=== PATIENT | female | born 1975 | race Caucasian/White ===

== ENCOUNTER 2023-02-25 07:53 | Outpatient (RCR) | payer OTHER, SELFPAY | END 2023-03-24 09:00 | disposition home or self-care (01) | LOC: PT 07:53 | PROVIDERS: PCP Family Medicine | DX: S39.012D Strain of muscle, fascia and tendon of lower back, subsequent encounter (principal); S33.8XXD Sprain of other parts of lumbar spine and pelvis, subsequent encounter | CPT/HCPCS: 97010; 97110; 97113; 97140; 97161 ==

== ENCOUNTER 2023-03-01 07:44 | Outpatient (OUT) | payer OTHER, SELFPAY ==
--- NOTE | 2023-03-01 07:48 | MR_ITS ---
[address] [address] Patient Name: OMAR HOANG MRN: [id number] date: 1975 Sex: F Assigned Patient Location: PT Current Patient Location: MRI Accession/Order Number: [id number] Exam Date: 03/01/2023 07:57 Report Date: 03/01/2023 09:22 At the request of: JUAN GRAHAM Procedure: MR lumbar spine wo con EXAMINATION: MR lumbar spine wo con HISTORY: Low Back Pain With Right Sided Radiation COMPARISON: No relevant comparison available. TECHNIQUE: A variety of imaging planes and parameters were utilized for visualization of suspected pathology. FINDINGS: For the purposes of numbering, sagittal T2 image # 8 extends from the T11 vertebral body superiorly to the S2-S3 level inferiorly. PARASPINAL AREA: Normal with no visible mass. BONES: 6 mm anterolisthesis of L5 on S1. Bilateral L5 pars interarticularis fractures. Mild degenerative spondylosis most significant at L5-S1 CORD/CAUDA EQUINA: Normal caliber, contour, and signal intensity. DISC LEVELS: 12-L1: No significant disc/facet abnormality, spinal stenosis, or foraminal stenosis. L1-L2: No significant disc/facet abnormality, spinal stenosis, or foraminal stenosis. L2-L3: Early degenerative disc disease is present without focal protrusion or neural impingement. L3-L4: Early degenerative disc disease is present without focal protrusion or neural impingement. L4-L5: No significant disc/facet abnormality, spinal stenosis, or foraminal stenosis. L5-S1: 6 mm anterolisthesis of L5 on S1. Moderate to severe disc space narrowing and desiccation with endplate sclerosis. Moderate diffuse disc bulge/pseudobulge. No central canal stenosis. Mild right and moderate left foraminal stenosis MR/MR lumbar spine wo con IMPRESSION: 6 mm anterolisthesis of L5 on S1 with degenerative changes with mild right and moderate left foraminal stenosis Electronically authenticated by: ELMA DE LOS SANTOS Date: 03/01/2023 09:22
== END 2023-03-01 07:45 | disposition home or self-care (01) ==
PROVIDERS: PCP Family Medicine; Visit Provider Family Medicine
DX: S33.8XXA Sprain of other parts of lumbar spine and pelvis, initial encounter (principal); S39.012A Strain of muscle, fascia and tendon of lower back, initial encounter; M54.31 Sciatica, right side
CPT/HCPCS: 72148

== ENCOUNTER 2023-03-25 10:42 | Outpatient (RCR) | payer OTHER, SELFPAY | END 2023-03-30 11:33 | disposition home or self-care (01) | LOC: PT 10:42 | PROVIDERS: PCP Family Medicine | DX: S39.012D Strain of muscle, fascia and tendon of lower back, subsequent encounter (principal); S33.8XXD Sprain of other parts of lumbar spine and pelvis, subsequent encounter | CPT/HCPCS: 97010; 97110; 97140 ==

== ENCOUNTER 2023-04-23 15:38 | Outpatient (OUT) | payer OTHER, SELFPAY ==
--- OUTSIDE RECORDS SUMMARY | 2023-04-23 15:44 | XMS_ITS | CCD ---
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 HISTORY: Screening for osteoporosis TECHNOLOGIST PROVIDED HISTORY: Is the patient ?->No Gender: F Age: 47 y/o FINDINGS: LUMBAR SPINE: L1-L4 BMD: 1.095 g/cm2 T-score: -0.7 Z-score: -1.7 LEFT TOTAL HIP: BMD: 1.096 g/cm2 T-score: 0.7 Z-score: 0.2 LEFT FEMORAL NECK: BMD: 1.060 g/cm2 T-score: 0.2 Z-score: 0.1 FRAX: Not Indicated. IMPRESSION: Normal bone mineral density by WHO criteria. RECOMMENDATIONS: 1. All patients should optimize their calcium and vitamin D intake. 2. Consider FDA-approved medical therapies in postmenopausal women and men aged 50 years and older, based on the following: - A hip or vertebral (clinical or morphometric) fracture - T-score less than or equal to -2.5 at the femoral neck or spine after appropriate evaluation to exclude secondary causes - Low bone density (T-score between -1.0 and -2.5 at the femoral neck or spine) and a 10-year probability of a hip fracture greater than or equal to 3% or a 10-year probability of a major osteoporosis-related fracture greater than or equal to 20% based on FRAX calculation. - Clinician judgment and/or patient preferences may indicate treatment for people with 10-year fracture probabilities above or below these levels - Further guidance on treatment can be found at the National Osteoporosis Foundation's website bonesource.org. 3. Patients with diagnosis of osteoporosis or at high risk for fracture should have regular bone mineral density tests. For patients eligible for Medicare, routine testing is allowed once every 2 years. The testing frequency can be increased to one year for patients who have rapidly progressing disease, those who are receiving or discontinuing medical therapy to restore bone mass or have additional risk factors. Template code: [id number] Interpreted by: Geo Patel DO Signed by: Geo Patel DO 05/25/22 Final result Normal [facility] Normal bone mineral density by WHO criteria. RECOMMENDATIONS: 1. All patients should optimize their calcium and vitamin D intake. 2. Consider FDA-approved medical therapies in postmenopausal women and men aged 50 years and older, based on the following: - A hip or vertebral (clinical or morphometric) fracture - T-score less than or equal to -2.5 at the femoral neck or spine after appropriate evaluation to exclude secondary causes - Low bone density (T-score between -1.0 and -2.5 at the femoral neck or spine) and a 10-year probability of a hip fracture greater than or equal to 3% or a 10-year probability of a major osteoporosis-related fracture greater than or equal to 20% based on FRAX calculation. - Clinician judgment and/or patient preferences may indicate treatment for people with 10-year fracture probabilities above or below these levels - Further guidance on treatment can be found at the National Osteoporosis Foundation's website bonesource.org. 3. Patients with diagnosis of osteoporosis or at high risk for fracture should have regular bone mineral density tests. For patients eligible for Medicare, routine testing is allowed once every 2 years. The testing frequency can be increased to one year for patients who have rapidly progressing disease, those who are receiving or discontinuing medical therapy to restore bone mass or have additional risk factors. Template code: [id number] [facility] EXAMINATION: BONE DENSITOMETRY 05/25/2022 1:04 pm TECHNIQUE: A bone density dual x-ray absorptiometry (DXA) scan was performed of the lumbar spine and left hip on a [employer] system. COMPARISON: None. HISTORY: ORDERING SYSTEM PROVIDED HISTORY: Screening for osteoporosis TECHNOLOGIST PROVIDED HISTORY: Is the patient ?->No Gender: F Age: 47 y/o FINDINGS: LUMBAR SPINE: L1-L4 BMD: 1.095 g/cm2 T-score: -0.7 Z-score: -1.7 LEFT TOTAL HIP: BMD: 1.096 g/cm2 T-score: 0.7 Z-score: 0.2 LEFT FEMORAL NECK: BMD: 1.060 g/cm2 T-score: 0.2 Z-score: 0.1 FRAX: Not Indicated. [facility] Geo Patel DO - 05/25/2022 EXAMINATION: BONE DENSITOMETRY 05/25/2022 1:04 pm TECHNIQUE: A bone density dual x-ray absorptiometry (DXA) scan was performed of the lumbar spine and left hip on a [employer] system. COMPARISON: None. HISTORY: ORDERING SYSTEM PROVIDED HISTORY: Screening for osteoporosis TECHNOLOGIST PROVIDED HISTORY: Is the patient ?->No Gender: F Age: 47 y/o FINDINGS: LUMBAR SPINE: L1-L4 BMD: 1.095 g/cm2 T-score: -0.7 Z-score: -1.7 LEFT TOTAL HIP: BMD: 1.096 g/cm2 T-score: 0.7 Z-score: 0.2 LEFT FEMORAL NECK: BMD: 1.060 g/cm2 T-score: 0.2 Z-score: 0.1 FRAX: Not Indicated. IMPRESSION: Normal bone mineral density by WHO criteria. RECOMMENDATIONS: 1. All patients should optimize their calcium and vitamin D intake. 2. Consider FDA-approved medical therapies in postmenopausal women and men aged 50 years and older, based on the following: - A hip or vertebral (clinical or morphometric) fracture - T-score less than or equal to -2.5 at the femoral neck or spine after appropriate evaluation to exclude secondary causes - Low bone density (T-score between -1.0 and -2.5 at the femoral neck or spine) and a 10-year probability of a hip fracture greater than or equal to 3% or a 10-year probability of a major osteoporosis-related fracture greater than or equal to 20% based on FRAX calculation. - Clinician judgment and/or patient preferences may indicate treatment for people with 10-year fracture probabilities above or below these levels - Further guidance on treatment can be found at the National Osteoporosis Foundation's website bonesource.org. 3. Patients with diagnosis of osteoporosis or at high risk for fracture should have regular bone mineral density tests. For patients eligible for Medicare, routine testing is allowed once every 2 years. The testing frequency can be increased to one year for patients who have rapidly progressing disease, those who are receiving or discontinuing medical therapy to restore bone mass or have additional risk factors. Template code: [id number] [employer] Phone: Radiology Study observation (narrative) [employer] Phone: DEXA BONE DENSITY AXIAL SKEL ETONOrdered By: Geo Patel on 05-25-2022 [employer] Phone: [facility] KRYSTIN DIGITAL SCREEN BILA TERALon 05-25-2022 [facility] KRYSTIN DIGITAL SCREEN BILATERAL EXAMINATION: SCREENING DIGITAL BILATERAL MAMMOGRAM WITH TOMOSYNTHESIS, 05/25/2022 TECHNIQUE: Screening mammography was performed with tomosynthesis including MLO and CC views of the bilateral breasts. Computer aided detection was used for the interpretation of this exam. COMPARISON: June 15, 2020 HISTORY: Screening. FINDINGS: Breasts are composed of scattered fibroglandular density. There is no dominant mass, architectural distortion or concerning grouping of microcalcification in either breast. IMPRESSION: No mammographic evidence of malignancy BIRADS: BIRADS - CATEGORY 1 Negative. Normal interval follow-up is recommended in 12 months. OVERALL ASSESSMENT - NEGATIVE A letter of notification will be sent to the patient regarding the results. The [employer] recommends annual mammograms for women 40 years and older. Interpreted by: Geo Patel DO Signed by: Geo Patel DO 05/25/22 Final result Normal [facility] No mammographic evidence of malignancy BIRADS: BIRADS - CATEGORY 1 Negative. Normal interval follow-up is recommended in 12 months. OVERALL ASSESSMENT - NEGATIVE A letter of notification will be sent to the patient regarding the results. [employer] recommends annual mammograms for women 40 years and older. [facility] EXAMINATION: SCREENING DIGITAL BILATERAL MAMMOGRAM WITH TOMOSYNTHESIS, 05/25/2022 TECHNIQUE: Screening mammography was performed with tomosynthesis including MLO and CC views of the bilateral breasts. Computer aided detection was used for the interpretation of this exam. COMPARISON: June 15, 2020 HISTORY: Screening. FINDINGS: Breasts are composed of scattered fibroglandular density. There is no dominant mass, architectural distortion or concerning grouping of microcalcification in either breast. [facility] Radiology Study observation (narrative) [employer] Phone: [facility] KRYSTIN DIGITAL SCREEN BILA TERALOrdered By: Geo Patel on 05-25-2022 [facility] [employer] Phone: US PELVIS COMPLETE NON-OB TR ANSABDOMINAL AND TRANSVAGINALon 04-23-2022 US PELVIS COMPLETE NON-OB TRANSABDOMINAL AND TRANSVAGINAL EXAMINATION: TRANSABDOMINAL AND TRANSVAGINAL PELVIC ULTRASOUND 04/23/2022 TECHNIQUE: Transabdominal and transvaginal pelvic ultrasound was performed. COMPARISON: None HISTORY: ORDERING SYSTEM PROVIDED HISTORY: Pain in female pelvis Left-sided pelvic pain FINDINGS: Measurements: Uterus: Surgically absent Endometrial stripe: Surgically absent Right Ovary:Surgically absent Left Ovary: 3.0 x 2.5 x 1.3 cm Ultrasound Findings: Uterus: The uterus is surgically absent. Endometrial stripe: The endometrial stripe is surgically absent. Right Ovary: The right ovary is surgically absent. Left Ovary: There appears to be normal left ovarian parenchyma within the left adnexa. The left ovarian parenchyma demonstrates normal arterial and venous doppler flow. There are multiple small subcentimeter follicles present within the left ovary. There is no evidence of left ovarian torsion or mass. Free Fluid: No evidence of free fluid. No pelvic mass or fluid collection is identified. IMPRESSION: 1. Surgical absence of the uterus, endometrial stripe, and right ovary. 2. Normal appearing left ovarian parenchyma within the left adnexa, without evidence of torsion or mass. 3. No abnormal pelvic mass or fluid collection. Interpreted by: Moose Payan MD Signed by: Moose Payan MD 04/23/22 Final result Normal [facility] 1. Surgical absence of the uterus, endometrial stripe, and right ovary. 2. Normal appearing left ovarian parenchyma within the left adnexa, without evidence of torsion or mass. 3. No abnormal pelvic mass or fluid collection. [facility] EXAMINATION: TRANSABDOMINAL AND TRANSVAGINAL PELVIC ULTRASOUND 04/23/2022 TECHNIQUE: Transabdominal and transvaginal pelvic ultrasound was performed. COMPARISON: None HISTORY: ORDERING SYSTEM PROVIDED HISTORY: Pain in female pelvis Left-sided pelvic pain FINDINGS: Measurements: Uterus: Surgically absent Endometrial stripe: Surgically absent Right Ovary:Surgically absent Left Ovary: 3.0 x 2.5 x 1.3 cm Ultrasound Findings: Uterus: The uterus is surgically absent. Endometrial stripe: The endometrial stripe is surgically absent. Right Ovary: The right ovary is surgically absent. Left Ovary: There appears to be normal left ovarian parenchyma within the left adnexa. The left ovarian parenchyma demonstrates normal arterial and venous doppler flow. There are multiple small subcentimeter follicles present within the left ovary. There is no evidence of left ovarian torsion or mass. Free Fluid: No evidence of free fluid. No pelvic mass or fluid collection is identified. [facility] Moose Payan MD - 04/23/2022 EXAMINATION: TRANSABDOMINAL AND TRANSVAGINAL PELVIC ULTRASOUND 04/23/2022 TECHNIQUE: Transabdominal and transvaginal pelvic ultrasound was performed. COMPARISON: None HISTORY: ORDERING SYSTEM PROVIDED HISTORY: Pain in female pelvis Left-sided pelvic pain FINDINGS: Measurements: Uterus: Surgically absent Endometrial stripe: Surgically absent Right Ovary:Surgically absent Left Ovary: 3.0 x 2.5 x 1.3 cm Ultrasound Findings: Uterus: The uterus is surgically absent. Endometrial stripe: The endometrial stripe is surgically absent. Right Ovary: The right ovary is surgically absent. Left Ovary: There appears to be normal left ovarian parenchyma within the left adnexa. The left ovarian parenchyma demonstrates normal arterial and venous doppler flow. There are multiple small subcentimeter follicles present within the left ovary. There is no evidence of left ovarian torsion or mass. Free Fluid: No evidence of free fluid. No pelvic mass or fluid collection is identified. IMPRESSION: 1. Surgical absence of the uterus, endometrial stripe, and right ovary. 2. Normal appearing left ovarian parenchyma within the left adnexa, without evidence of torsion or mass. 3. No abnormal pelvic mass or fluid collection. [employer] Phone: Radiology Study observation (narrative) [employer] Phone: US PELVIS COMPLETE NON-OB TR ANSABDOMINAL AND TRANSVAGINALOrdered By: Moose Payan on 04-23-2022 [employer] Phone: ALTOrdered By: Carolyn Reed on 10-31-2020 ALT [Catalytic activity/Vol] 12 U/L 5 - 33 U/L [employer] Phone: ASTOrdered By: Carolyn Reed on 10-31-2020 AST [Catalytic activity/Vol] 15 U/L <32 [employer] Phone: Glucose, randomOrdered By: Sunil Reed on 10-31-2020 Glucose [Mass/Vol] 80 mg/dL 70 - 99 mg/dL [employer] Phone: No Panel InformationOrdered By: Carolyn Reed on 10-31-2020 [employer] Phone: MANISH KRYSTIN DIGITAL DIAGNOSTIC UNILATERAL LEFTOrdered By: Zeeshan Shaw on 07-15-2020 Areas of asymmetry upper-outer left breast effaces upon spot compression workup consistent with summation artifact. Follow-up screening mammogram in 1 year is advised. BI-RADS 1 BIRADS: BIRADS - CATEGORY 1 Negative, no evidence of malignancy in either breast. OVERALL ASSESSMENT - NEGATIVE A letter of notification will be sent to the patient regarding the results. RECOMMENDATION: Routine bilateral annual screening mammography is recommended. Follow-up screening mammogram in 1 year is advised. [employer] Phone: EXAMINATION: DIAGNOSTIC DIGITAL LEFT BREAST MAMMOGRAM WITH TOMOSYNTHESIS 07/15/2020 1:28 pm; 07/15/2020 2:13 pm TECHNIQUE: Diagnostic mammography of the left breast was performed with tomosynthesis. 2D standard and 3D tomosynthesis combination imaging performed through the left breast. Computer aided detection was utilized in the interpretation of this exam. VIEWS: 90 degree lateral view of the left breast. Spot magnification views upper outer left breast in 2 planes. COMPARISON: Baseline study 15 June 2020 HISTORY: ORDERING SYSTEM PROVIDED HISTORY: Abnormality of left breast on screening mammogram TECHNOLOGIST PROVIDED HISTORY: Abn screening mamm Is the patient ?->No; ORDERING SYSTEM PROVIDED HISTORY: Abnormality of left breast on screening mammogram TECHNOLOGIST PROVIDED HISTORY: Abn screening mamm Workup of tiny asymmetries upper outer left breast. Positive family history of breast cancer; paternal aunts at ages 30 and 40. Negative history of hormonal replacement therapy. No prior breast interventions. FINDINGS: Mammogram: The left breast is composed of scattered fibroglandular density. No skin thickening, nipple contour changes or malignant type microcalcifications are noted. Areas of asymmetry efface on diagnostic workup consistent with summation artifact. [employer] Work Phone: Greg, pn Incoming Radiant Results From [employer] - 07/15/2020 3:04 PM EDT EXAMINATION: DIAGNOSTIC DIGITAL LEFT BREAST MAMMOGRAM WITH TOMOSYNTHESIS 07/15/2020 1:28 pm; 07/15/2020 2:13 pm TECHNIQUE: Diagnostic mammography of the left breast was performed with tomosynthesis. 2D standard and 3D tomosynthesis combination imaging performed through the left breast. Computer aided detection was utilized in the interpretation of this exam. VIEWS: 90 degree lateral view of the left breast. Spot magnification views upper outer left breast in 2 planes. COMPARISON: Baseline study 15 June 2020 HISTORY: ORDERING SYSTEM PROVIDED HISTORY: Abnormality of left breast on screening mammogram TECHNOLOGIST PROVIDED HISTORY: Abn screening mamm Is the patient ?->No; ORDERING SYSTEM PROVIDED HISTORY: Abnormality of left breast on screening mammogram TECHNOLOGIST PROVIDED HISTORY: Abn screening mamm Workup of tiny asymmetries upper outer left breast. Positive family history of breast cancer; paternal aunts at ages 30 and 40. Negative history of hormonal replacement therapy. No prior breast interventions. FINDINGS: Mammogram: The left breast is composed of scattered fibroglandular density. No skin thickening, nipple contour changes or malignant type microcalcifications are noted. Areas of asymmetry efface on diagnostic workup consistent with summation artifact. IMPRESSION: Areas of asymmetry upper-outer left breast effaces upon spot compression workup consistent with summation artifact. Follow-up screening mammogram in 1 year is advised. BI-RADS 1 BIRADS: BIRADS - CATEGORY 1 Negative, no evidence of malignancy in either breast. OVERALL ASSESSMENT - NEGATIVE A letter of notification will be sent to the patient regarding the results. RECOMMENDATION: Routine bilateral annual screening mammography is recommended. Follow-up screening mammogram in 1 year is advised. [facility] [employer] Work Phone: CBC Auto Differentialon 12-3 0-2020 Basophils (Bld) [#/Vol] 0.10 10*3/uL [place] Basophils/100 WBC (Bld) 1 % 0 - 2 % [place] Differential Type NOT REPORTED [place] Eosinophils (Bld) [#/Vol] 0.43 10*3/uL [place] Eosinophils/100 WBC (Bld) 6 % High 1 - 4 % [place] Erythrocyte distribution width (RBC) [Ratio] 12.0 % 11.8 - 14.4 % [place] Hematocrit (Bld) [Volume fraction] 39.5 % 36.3 - 47.1 % [place] Hemoglobin (Bld) [Mass/Vol] 12.6 g/dL 11.9 - 15.1 g/dL [place] Immature granulocytes (Bld) [#/Vol] 10*3/uL [place] Immature granulocytes (Bld) [#/Vol] 0 % 0 [place] Interpretation and review of laboratory results Abnormal [place] Lymphocytes (Bld) [#/Vol] 2.31 10*3/uL [place] Lymphocytes/100 WBC (Bld) 33 % 24 - 43 % [place] MCH (RBC) [Entitic mass] 29.9 pg 25.2 - 33.5 pg [place] MCHC (RBC) [Mass/Vol] 31.9 g/dL 28.4 - 34.8 g/dL [place] MCV (RBC) [Entitic vol] 93.8 fL 82.6 - 102.9 fL [place] Monocytes (Bld) [#/Vol] 0.65 10*3/uL [place] Monocytes/100 WBC (Bld) 9 % 3 - 12 % [place] Platelet mean volume (Bld) [Entitic vol] 10.1 fL 8.1 - 13.5 fL [place] Platelets (Bld) [#/Vol] 261 10*3/uL [place] Platelets (Bld) [#/Vol] NOT REPORTED [place] RBC (Bld) [#/Vol] 4.21 10*6/uL 3.95 - 5.1 1 m/uL [place] RBC morphology finding Nom (Bld) NOT REPORTED [place] Segmented neutrophils/100 WBC (Bld) 51 % 36 - 65 % [place] Segs Absolute 3.41 [place] WBC (Bld) [#/Vol] 0.0 10*3/uL 0.0 per 10 0 WBC [place] WBC (Bld) [#/Vol] 6.9 10*3/uL [place] WBC Morphology NOT REPORTED [place] Comprehensive Metabolic Pane sunil 03-23-2020 Albumin [Mass/Vol] 3.9 g/dL 3.5 - 5.2 g/dL [place] Albumin/Globulin [Mass ratio] 1.3 {ratio} [place] ALP [Catalytic activity/Vol] 63 U/L 35 - 104 U/L [place] ALT [Catalytic activity/Vol] 52 U/L High 5 - 33 U/L [place] Anion gap [Moles/Vol] 8 mmol/L Low 9 - 17 mmol/L [place] AST [Catalytic activity/Vol] 39 U/L High <32 [place] Bilirubin Ql (U) 0.32 mg/dL 0.3 - 1.2 mg/dL [place] Bun/Cre Ratio 16 [place] Calcium [Mass/Vol] 9.1 mg/dL 8.6 - 10. 4 mg/dL [place] Chloride [Moles/Vol] 104 mmol/L 98 - 10 7 mmol/L [place] CO2 [Moles/Vol] 26 mmol/L 20 - 31 mmol/L [place] Creatinine [Mass/Vol] 0.67 mg/dL 0.5 - 0.9 mg/dL [place] GFR >60 >60 mL/min [place] GFR Non- >60 >60 mL/min [place] Glucose [Mass/Vol] 96 mg/dL 70 - 99 mg/dL [place] Interpretation and review of laboratory results Abnormal [place] Potassium [Moles/Vol] 4.0 mmol/L 3.7 - 5.3 mmol/L [place] Protein [Mass/Vol] 6.9 g/dL 6.4 - 8.3 g/dL [place] Sodium [Moles/Vol] 138 mmol/L 135 - 144 mmol/L [place] Urea nitrogen [Mass/Vol] 11 mg/dL 6 - 20 mg/dL [place] Estradiolon 03-23-2020 Estradiol 129 pg/mL 27 - 314 pg/mL [place] Comment on above: FEMALES: Normally menstruating Luteal phase 33-298 Follicular phase 27-156 Midcycle phase 48-314 Postmenopausal (untreated) 5-50 Fulvestrant treatment will show an increased estradiol concentration with this methodology. Alternate methodologies are available upon request. Follicle Stimulating Hormone on 03-23-2020 FSH 31.8 U/L High 1.7 - 21.5 U/L [place] Comment on above: Reference Range: Male: 1.5-12.4 Ovulating Female: Follicular Phase 3.5-12.5 Ovulation Phase 4.7-21.5 Luteal Phase 1.7-7.7 Postmenopausal Female: 25.8-134.8 Interpretation and review of laboratory results Abnormal [place] Hemoglobin A1Con 03-23-2020 Glucose [Mass/Vol] 103 mg/dL [place] Comment on above: The ADA and AACC rec ommend providing the estimated average glucose result to permit better patient understanding of their HBA1c result. HbA1c (Bld) [Mass fraction] 5.2 % 4 - 6 % [place] Lipid Panelon 03-23-2020 Cholesterol [Mass/Vol] 159 mg/dL <200 [place] Comment on above: Cholesterol Guidelines: <200 Desirable 200-240 Borderline >240 Undesirable Cholesterol in HDL [Mass/Vol] 50 mg/dL >40 [place] Comment on above: HDL Guidelines: <40 Undesirable 40-59 Borderline >59 Desirable Cholesterol in LDL [Mass/Vol] 88 mg/dL 0 - 130 mg/dL [place] Comment on above: LDL Guidelines: <100 Desirable 100-129 Near to/above Desirable 130-159 Borderline >159 Undesirable Direct (measured) LDL and calculated LDL are not interchangeable tests. Cholesterol in VLDL [Mass/Vol] NOT REPORTED 1 - 30 mg/dL [place] Cholesterol.total/Chol esterol in HDL [Mass ratio] 3.2 {ratio} <5 [place] Triglyceride [Mass/Vol] 103 mg/dL <150 [place] Comment on above: Triglyceride Guidelines: <150 Desirable 150-199 Borderline 200-499 High >499 Very high Based on AHA Guidelines for fasting triglyceride, December 2011. Metabolic Panelon 03-23-2020 GFR/1.73 sq M predicted among non-blacks MDRD (S/P/Bld) [Vol rate/Area] [place] Comment on above: Average GFR for 40-4 9 years old: 99 mL/min/1.73sq m Chronic Kidney Disease: <60 mL/min/1.73sq m Kidney failure: <15 mL/min/1.73sq m eGFR calculated using average adult body mass. Additional eGFR calculator available at: http://[email or web address]/multiple_crcl_2012.htm Stage 1: Some kidney damage normal GFR Stage 2: Mild kidney damage GFR 60-89 Stage 3: Moderate kidney damage GFR 30-59 Stage 4: Severe kidney damage GFR 15-29 Stage 5: Severe kidney damage GFR <15 ESRD - chronic treatment by dialysis or transplant Microscopic Urinalysison Amorphous, UA NOT REPORTED None [place], [place] Bacteria, UA NOT REPORTED None [place], [place] Casts UA NOT REPORTED /LPF [place] Crystals, UA NOT REPORTED None /HPF [place] Epithelial Cells UA 0 TO 2 [place] Mucus, UA NOT REPORTED None [place] Other Observations UA NOT REPORTED NOT REQ. M [place], [place] RBC (U) [#/Vol] None [place] Renal Epithelial, UA NOT REPORTED 0 /HPF Me [place], [place] Trichomonas, UA NOT REPORTED None [facility] [place] WBC, UA None [place] Yeast, UA NOT REPORTED None [place] TSH with Reflexon 03-23-2020 TSH Qn 2.02 m[IU]/L [place] Urinalysis Reflex to Culture on 03-23-2020 Bilirubin Urine Negative NEGATIVE [place] Color, UA YELLOW YELLOW [place] Glucose, Ur Negative NEGATIVE [place] Ketones Ql (U) Negative NEGATIVE [place] Leukocyte esterase Test strip Ql (U) Negative NEGATIVE [place] Nitrite, Urine Negative NEGATIVE [place] pH, UA 7.5 [place] Protein (U) [Mass/Vol] Negative NEGATIVE [place] Specific [place], UA 1.015 [place], [place] Turbidity UA CLEAR [place] Urinalysis Comments NOT REPORTED [place] Urine Hgb Negative NEGATIVE [place] Urobilinogen, Urine Normal Normal [place] Hepatitis B Surface Antibody on 01-09-2019 HBV surface Ab (S) [Titer] 3.91 <10 mIU/mL [place] Comment on above: REFERENCE RANGE: <10.0 NON-REACTIVE/NOT IMMUNE >=10.0 REACTIVE/IMMUNE Rubella antibody, IgGon 12-23 Rubella virus IgG Ql (S) 37.4 IU/mL [place] Comment on above: REFERENCE RANGE: <5.0 NON-REACTIVE (non-immune) 5.0 TO 9.9 EQUIVOCAL >=10.0 REACTIVE (immune) Employee Comp Metabolic Pane sunil 08-04-2018 Albumin mass conc 3.8 g/dL Normal 3.2-5.5 [facility] Comment on above: Performed By: #### P ILLAR CBC, PILLAR CMP, PILLAR LIPID, PILLAR TSH #### [facility] [address] Albumin/Globulin mass ratio 1.6 {ratio} Normal [facility] Comment on above: Performed By: #### P ILLAR CBC, PILLAR CMP, PILLAR LIPID, PILLAR TSH #### [facility] [address] [place] [id number] [facility] ALP enzyme act/vol 41 U/L Normal 32-92 [facility] Comment on above: Performed By: #### P ILLAR CBC, PILLAR CMP, PILLAR LIPID, PILLAR TSH #### [facility] [address] [place] [address] [place] ALT enzyme act/vol 14 U/L Normal 10-60 [facility] Comment on above: Performed By: #### P ILLAR CBC, PILLAR CMP, PILLAR LIPID, PILLAR TSH #### [facility] [address] [place] [address] [place] AST enzyme act/vol 17 U/L Normal 10-42 [facility] Comment on above: Performed By: #### P ILLAR CBC, PILLAR CMP, PILLAR LIPID, PILLAR TSH #### [facility] [address] [place] [address] [place] Bilirubin mass conc 0.3 mg/dL Normal 0.3-1.2 [facility] Comment on above: Performed By: #### P ILLAR CBC, PILLAR CMP, PILLAR LIPID, PILLAR TSH #### [facility] [address] [place] [address] [place] Calcium mass conc 9.2 mg/dL Normal 8.2-10.2 [facility] Comment on above: Performed By: #### P ILLAR CBC, PILLAR CMP, PILLAR LIPID, PILLAR TSH #### [facility] [address] Chloride molar conc 103 mmol/L Normal 95-114 [facility] Comment on above: Performed By: #### P ILLAR CBC, PILLAR CMP, PILLAR LIPID, PILLAR TSH #### [address] CO2 molar conc 27.1 mmol/L Normal 22.0-30.0 [facility] Comment on above: Performed By: #### P ILLAR CBC, PILLAR CMP, PILLAR LIPID, PILLAR TSH #### [address] Creatinine mass conc 0.85 mg/dL Normal 0.44-1.03 [facility] Comment on above: Performed By: #### P ILLAR CBC, PILLAR CMP, PILLAR LIPID, PILLAR TSH #### [address] Estimated GFR ( Jannet > 60 Normal [facility] Comment on above: Result Comment: GFR estimated reference range: According to KDOQI guidelines, <60 ml/min/1.73m2 is sufficient to diagnose a patient with chronic kidney disease. Performed By: #### P ILLAR CBC, PILLAR CMP, PILLAR LIPID, PILLAR TSH #### [facility] [address] [place] [address] Estimated GFR (Non- Am > 60 Normal [facility] Comment on above: Performed By: #### P ILLAR CBC, PILLAR CMP, PILLAR LIPID, PILLAR TSH #### [facility] [address] [place] [address] Globulin mass conc (S) 2.4 g/dL Normal [facility] Comment on above: Performed By: #### P ILLAR CBC, PILLAR CMP, PILLAR LIPID, PILLAR TSH #### [address] Glucose mass conc 95 mg/dL Normal 70-100 [facility] Comment on above: Performed By: #### P ILLAR CBC, PILLAR CMP, PILLAR LIPID, PILLAR TSH #### [facility] [address] [place] [address] Potassium molar conc 4.1 mmol/L Normal 3.5-5.1 [facility] Comment on above: Performed By: #### P ILLAR CBC, PILLAR CMP, PILLAR LIPID, PILLAR TSH #### [address] Protein mass conc 6.2 g/dL Normal 6.1-7.9 [facility] Comment on above: Performed By: #### P ILLAR CBC, PILLAR CMP, PILLAR LIPID, PILLAR TSH #### [address] Sodium molar conc 140 mmol/L Normal 136-146 [facility] Comment on above: Performed By: #### P ILLAR CBC, PILLAR CMP, PILLAR LIPID, PILLAR TSH #### [address] Urea nitrogen mass conc 7 mg/dL Low 9-23 [facility] Comment on above: Performed By: #### P ILLAR CBC, PILLAR CMP, PILLAR LIPID, PILLAR TSH #### [address] Employee Complete Blood Coun ton 08-04-2018 Basophils #/vol (Bld) 0.1 10*3/uL Normal 0.0-0.2 [facility] Comment on above: Result Comment: PERF ORMED BY: [place] [address] PATHOLOGIST OFFICE MACHINES TEACHER INDIA LEMUS M.D. Performed By: #### P ILLAR CBC, PILLAR CMP, PILLAR LIPID, PILLAR TSH #### [address] Basophils/100 WBC (Bld) 1.2 % Normal . [facility] Comment on above: Performed By: #### P ILLAR CBC, PILLAR CMP, PILLAR LIPID, PILLAR TSH #### [facility] [address] [place] [address] Eosinophils #/vol (Bld) 0.2 10*3/uL Normal 0.0-0.45 [facility] Comment on above: Performed By: #### P ILLAR CBC, PILLAR CMP, PILLAR LIPID, PILLAR TSH #### [address] Eosinophils/100 WBC (Bld) 3.0 % Normal . [facility] Comment on above: Performed By: #### P ILLAR CBC, PILLAR CMP, PILLAR LIPID, PILLAR TSH #### [address] Erythrocyte distribution width Ratio (RBC) 12.3 % Normal 11.9-15.3 [facility] Comment on above: Performed By: #### P ILLAR CBC, PILLAR CMP, PILLAR LIPID, PILLAR TSH #### [address] Hematocrit Volume Fraction (Bld) 39.4 % Normal 34.0-46.4 [facility] Comment on above: Performed By: #### P ILLAR CBC, PILLAR CMP, PILLAR LIPID, PILLAR TSH #### [address] Hemoglobin mass conc (Bld) 13.7 g/dL Normal 11.8-15.4 [facility] Comment on above: Performed By: #### P ILLAR CBC, PILLAR CMP, PILLAR LIPID, PILLAR TSH #### [address] Lymphocytes #/vol (Bld) 2.3 10*3/uL Normal 1.00-4.8 [facility] Comment on above: Performed By: #### P ILLAR CBC, PILLAR CMP, PILLAR LIPID, PILLAR TSH #### [address] Lymphocytes/100 WBC (Bld) 31.4 % Normal . [facility] Comment on above: Performed By: #### P ILLAR CBC, PILLAR CMP, PILLAR LIPID, PILLAR TSH #### [facility] [address] [place] [address] MCH Entitic mass (RBC) 34.9 g/dL Normal 32.0-35.0 [facility] Comment on above: Performed By: #### P ILLAR CBC, PILLAR CMP, PILLAR LIPID, PILLAR TSH #### [facility] [address] [place] [address] MCH Entitic mass (RBC) 30.7 pg Normal 24.7-34.3 [facility] Comment on above: Performed By: #### P ILLAR CBC, PILLAR CMP, PILLAR LIPID, PILLAR TSH #### [address] MCV Entitic volume (RBC) 88.2 fL Normal 80-100 [facility] Comment on above: Performed By: #### P ILLAR CBC, PILLAR CMP, PILLAR LIPID, PILLAR TSH #### [address] Monocytes #/vol (Bld) 0.7 10*3/uL Normal 0.0-0.8 [facility] Comment on above: Performed By: #### P ILLAR CBC, PILLAR CMP, PILLAR LIPID, PILLAR TSH #### [address] Monocytes/100 WBC (Bld) 9.1 % Normal . [facility] Comment on above: Performed By: #### P ILLAR CBC, PILLAR CMP, PILLAR LIPID, PILLAR TSH #### [facility] [address] [place] [address] Neutrophils #/vol (Bld) 4.1 10*3/uL Normal 1.8-7.7 [facility] Comment on above: Performed By: #### P ILLAR CBC, PILLAR CMP, PILLAR LIPID, PILLAR TSH #### [address] Neutrophils/100 WBC (Bld) 55.3 % Normal . [facility] Comment on above: Performed By: #### P ILLAR CBC, PILLAR CMP, PILLAR LIPID, PILLAR TSH #### [facility] [address] Nucleated RBC/100 WBC Ratio (Bld) 0.1 % Normal 0-0.5 [facility] Comment on above: Performed By: #### P ILLAR CBC, PILLAR CMP, PILLAR LIPID, PILLAR TSH #### [facility] [address] Platelet mean volume Entitic volume (Bld) 8.3 fL Normal 6.3-10.7 [facility] Comment on above: Performed By: #### P ILLAR CBC, PILLAR CMP, PILLAR LIPID, PILLAR TSH #### [facility] [address] Platelets #/vol (Bld) 259 10*3/uL Normal 150-450 [facility] Comment on above: Performed By: #### P ILLAR CBC, PILLAR CMP, PILLAR LIPID, PILLAR TSH #### [facility] [address] [place] [address] RBC #/vol (Bld) 4.47 10*6/uL Normal 3.60-5.00 [facility] Comment on above: Performed By: #### P ILLAR CBC, PILLAR CMP, PILLAR LIPID, PILLAR TSH #### [facility] [address] [place] [address] WBC #/vol (Bld) 7.4 10*3/uL Normal 4.5-11.0 [facility] Comment on above: Performed By: #### P ILLAR CBC, PILLAR CMP, PILLAR LIPID, PILLAR TSH #### [facility] [address] [place] [address] Employee Lipid Profileon Cholesterol in HDL mass conc 52 mg/dL Normal 35-85 [facility] Comment on above: Result Comment: HDL CHOL ATP-III CLASSIFICATION Cardiovascular Risk HDL > or equal to 60 mg/dL LOW HDL < 40 mg/dL HIGH Performed By: #### P ILLAR CBC, PILLAR CMP, PILLAR LIPID, PILLAR TSH #### [facility] [address] Cholesterol mass conc 158 mg/dL Normal 140-200 [facility] Comment on above: Result Comment: Chol less than 200 mg/dl low risk Chol 201-239 mg/dl borderline risk Chol 240 mg/dl and greater high risk Performed By: #### P ILLAR CBC, PILLAR CMP, PILLAR LIPID, PILLAR TSH #### [facility] [address] Cholesterol.total/Chol esterol in HDL mass ratio 3.0 {ratio} Normal <5.0 [facility] Comment on above: Performed By: #### P ILLAR CBC, PILLAR CMP, PILLAR LIPID, PILLAR TSH #### [facility] [address] LDL Cholesterol,Calculated 90 mg/dL Normal 0-100 [facility] Comment on above: Result Comment: LDL ATP III CLASSIFICATION LDL less than 100 mg/dL Optimal LDL 100-129 mg/dL Near or above optimal LDL 130-159 mg/dL Borderline high LDL 160-189 mg/dL High LDL greater than 189 mg/dL Very high Performed By: #### P ILLAR CBC, PILLAR CMP, PILLAR LIPID, PILLAR TSH #### [address] Triglyceride w/Reflex 79 mg/dL Normal 35-149 [facility] Comment on above: Result Comment: TRIG ATP III CLASSIFICATION TRIG less than 150 mg/dL Normal TRIG 150-199 mg/dL Borderline high TRIG 200-500 mg/dL High TRIG greater than 500 mg/dL Very high Standard traceable to the Center for Disease Conrtrol and Prevention (CDC) test method. Performed By: #### P ILLAR CBC, PILLAR CMP, PILLAR LIPID, PILLAR TSH #### [facility] [address] VLDL CHOLESTEROL 15 mg/dL Normal [facility] Comment on above: Performed By: #### P ILLAR CBC, PILLAR CMP, PILLAR LIPID, PILLAR TSH #### [facility] [address] Employee Thyroid Stim Hormon liz 08-04-2018 Employee Thyroid Stim Hormone 2.33 u[iU]/mL Normal 0.45-5.33 [facility] Comment on above: Result Comment: PERF ORMED BY: [facility] [address] [facility] [place] [address] PATHOLOGIST OFFICE MACHINES TEACHER INDIA LEMUS M.D. Performed By: #### P ILLAR CBC, PILLAR CMP, PILLAR LIPID, PILLAR TSH #### [facility] [address] [place] [address] [facility] Vital Signs Date Time Vital Sign Value Performing Clinician Faci lity 09-01-2019 09:37-0400 BMI (Body Mass Index) 34.33 kg/m2 Jonny Deluux [facility] [place] 09-01-2019 09:37-0400 Body Temperature 97.9 [degF] Jonny [facility] [place] 09-01-2019 09:37-0400 Body weight 90.72 kg Jonny [employer] [facility] , [place] 09-01-2019 09:37-0400 BP Diastolic 85 mm[Hg] Jonny [employer] [facility] , [place] 09-01-2019 09:37-0400 BP Systolic 141 mm[Hg] Jonny [employer] [facility] , [place] 09-01-2019 09:37-0400 Height 162.6 cm Jonny Del[facility]ux [facility] , [place] 09-01-2019 09:37-0400 Pulse (Heart Rate) 68 /min Jonny [employer] [facility], [place] 09-01-2019 09:37-0400 Pulse Oximetry 98 % Jonny Deluux [facility] , [place] 09-01-2019 09:37-0400 Respiratory Rate 18 /min Jonny [facility] , [place] Encounters Encounter Date Encounter Type Care Provider Facility Start: 04-10-2023 End: 04-10-2023 ambulatory Kamla Maier Other [facility] Other Start: 04-10-2023 Telephone encounter Kamla Maier [facility] Start: 12-06-2022 End: 12-07-2022 [facility] Start: 12-06-2022 Encounter for jerica l adult medical examination without abnormal findings SHARRON ALCANTARA [facility] Start: 05-25-2022 End: 05-28-2022 ambulatory [facility] Start: 05-25-2022 End: 05-27-2022 Subsequent hospital visit by physician Mook Jones [facility] M[facility] Comment on above: Screening for osteop orosis; Premature surgical menopause Breast cancer screen ing by mammogram Start: 04-23-2022 End: 04-26-2022 ambulatory [facility]ANTARA [facility] Start: 04-23-2022 End: 04-25-2022 Subsequent hospital visit by physician [facility] Comment on above: Pain in female pelvi s Start: 10-10-2021 End: 10-10-2021 Subsequent hospital visit by physician Carolyn Wallace CNP Work Phone: [facility] Laboratory Comment on above: Atypical mole Start: 09-21-2021 End: 09-21-2021 Subsequent hospital visit by physician Vahe Jung PT [facility] Physical Therapy Comment on above: Arrived Start: 10-31-2020 End: 10-31-2020 Subsequent hospital visit by physician Carolyn Wallace CNP Work Phone: [facility] Laboratory Comment on above: High risk medication use; Elevated liver enzymes Start: 07-15-2020 End: 07-17-2020 Subsequent hospital visit by physician [facility]ound Comment on above: Abnormality of left breast on screening mammogram Start: 03-23-2020 End: 03-23-2020 Subsequent hospital visit by physician Carolyn MENDO[facility] Laboratory Comment on above: Obesity (BMI 35.0-39 .9 without comorbidity); Chronic left lower quadrant pain; Screening cholesterol level Wellness examination Start: 02-25-2020 End: 02-25-2020 Subsequent hospital visit by physician Carolyn [facility] Laboratory Comment on above: Women's annual routi ne gynecological examination Start: 09-01-2019 End: 09-01-2019 Emergency department patient visit Jonny Ortega Work Phone: [facility] ED Comment on above: Sciatica of right si de (Primary Dx) Start: 07-23-2019 End: 07-23-2019 Subsequent hospital visit by physician Juan [facility] Laboratory Start: 01-09-2019 End: 01-09-2019 Subsequent hospital visit by physician KELLY Laboratory Start: 10-14-2018 End: 10-14-2018 Patient encounter procedure [facility] Facility: Procedures Date Procedure Procedure Detail Performing Clinician Start: 05-25-2022 Dxa bone density chad dy 1/> sites axial skel Sharron Alcantara [employer] V[employer] - INCOMING INSPECTOR Work Phone: Start: 05-25-2022 Screening mammograph y bi 2-view breast inc cad Sharron Alcantara [employer]OD VENDOR - INCOMING INSPECTOR Work Phone: Start: 04-23-2022 Us transvaginal Sharron hassan FOOD VENDOR - [employer] Work Phone: Start: 10-31-2020 Glucose quantitative blood xcpt reagent strip Carolyn Reed FOOD VENDOR - [employer] Work Phone: Start: 07-15-2020 Diagnostic mammograp hy computer-aided detcj uni Zeeshan Shaw MD Work Phone: Start: 03-23-2020 Urinalysis microscopic only Zeeshan Shaw Work Phone: Start: 03-23-2020 Urnls dip stick/tabl et rgnt auto w/o microscopy Zeeshan Shaw Work Phone: Start: 03-23-2020 Assay of estradiol Lisa Shaw Work Phone: Start: 03-23-2020 Assay of thyroid stimulating hormone tsh Zeeshan Shaw Work Phone: Start: 03-23-2020 Blood count complete auto&auto difrntl wbc Zeeshan Shaw Work Phone: Start: 03-23-2020 Comprehensive metabo lic panel Zeeshan Shaw Work Phone: Start: 03-23-2020 Gonadotropin follicl e stimulating hormone Zeeshan Shaw Work Phone: Start: 03-23-2020 Hemoglobin glycosylated a1c Zeeshan Shaw Work Phone: Start: 03-23-2020 Lipid panel Carolyn castro Work Phone: Start: 01-09-2019 Hepatitis b surf ant ibody hbsab Janette Bello Work Phone: Start: 01-09-2019 Immunoassay infectio us agent antibody mani nos Janette Bello Work Phone: Plan of Treatment Date Care Activity Detail Author Start: 12-05-2026 Lipid panel Lipids [facility] Start: 12-06-2025 Lipid panel Lipids [facility] Start: 03-23-2025 Lipid panel Lipid screen [place] Start: 10-15-2024 Lipid panel Lipid screen [place] Start: 02-24-2023 Screening for malign ant neoplasm of cervix Cervical cancer screen [place] Start: 06-14-2022 End: 06-14-2022 Patient encounter procedure 06/14/2022 Office Visit Obstetrics and Gynecology Zeeshan Shaw MD [address] [place] [address] [facility] Start: 05-25-2022 End: 05-25-2022 Patient encounter procedure 05/25/2022 Appointment Radiology [facility] Start: 05-14-2022 End: 05-14-2022 Patient encounter procedure 05/14/2022 Office Visit Obstetrics and Gynecology Zeeshan Shaw MD [address] [place], [place] [id number] [facility] Start: 04-12-2022 Depression Monitoring Depression Mon itoring [facility] Start: 11-23-2021 Influenza vaccination B ON [facility] Start: 10-26-2021 End: 10-26-2021 Patient encounter procedure 10/26/2021 Office Visit Primary Care Carolyn Reed FOOD VENDOR - INCOMING INSPECTOR [address] [place] [address] [facility] Start: 10-23-2021 Influenza vaccination Flu vaccine (# 1) [facility] Start: 10-10-2021 End: 10-10-2021 Patient encounter procedure 10/10/2021 Procedure visit Primary Care Carolyn Reed, FOOD VENDOR - INCOMING INSPECTOR [address] [place] [address] [facility] Start: 09-29-2021 End: 09-29-2021 Patient encounter procedure 09/29/2021 Appointment Physical Therapy Roger Allen, PT [facility] Start: 01-13-2021 End: 01-13-2021 Office Visit 01/13/2021 Office Visit Family Medicine Carolyn Reed, FOOD VENDOR - INCOMING INSPECTOR [address] [facility] [address] [phone] [facility] FAMILY [facility] Start: 11-23-2020 Influenza vaccination [facility] Work Phone: Start: 04-15-2020 End: 04-15-2020 Office Visit 04/15/2020 Office Visit Obstetrics and Gynecology Zeeshan Shaw MD [address] [place] [address] [phone] [facility] Start: 01-02-2020 Screening for malign ant neoplasm of colon [facility] Start: 11-24-2019 Influenza vaccination [place] Start: 09-21-2019 End: 09-21-2019 Appointment 09/21/2019 Appointment Radiology [facility] Start: 2015 Diabetes screen Diabetes screen [place], [place] Start: 2015 Lipid panel Lipid [place] Start: 01-02-1996 Screening for malign ant neoplasm of cervix Cervical cancer screen [place] Start: 1994 DTaP/Tdap/Td vaccine (1 - Tdap) DTaP/Tdap/Td vaccine (1 - Tdap) [facility] Start: 1993 Hepatitis C screening Hepatitis C mo topher [facility] Start: 1991 COVID-19 Vaccine (1) COVID-19 Vaccin e (1) [employer] Phone: Start: 1990 HIV screening HIV screen [facility] [employer] Start: 1987 COVID-19 Vaccine (1) COVID-19 Vaccin e (1) [employer] Phone: Start: 01-02-1980 COVID-19 Vaccine (1) COVID-19 Vaccin e (1) [facility] Start: 1975 COVID-19 Vaccine (#1) COVID-19 Vacci ne (#1) [facility] Start: 1975 Hepatitis C screening Hepatitis [facility] [place] End: 07-23-2019 Covid-19 Ambulatory Covid-19 Ambulatory Lab Routine Once for 1 Occurrences starting 07/23/2019 until 07/23/2019 [place] Comment on above: Once for 1 Occurrenc es starting 07/23/2019 until 07/23/2019 Covid-19 Ambulatory Covid-19 Amb ulatory Lab Routine 07/23/2019 3:29 PM EDT [place] End: 02-25-2020 Cytopathology procedure, preparation of smear, genital source PAP SMEAR Lab Routine Women's annual routine gynecological examination 1 Occurrences starting 02/25/2020 until 02/25/2020 [place] Comment on above: 1 Occurrences starti ng 02/25/2020 until 02/25/2020 End: 10-10-2021 Dermatology Pathology Dermatology Pathology Lab Routine Once for 1 Occurrences starting 10/10/2021 until 10/10/2021 [facility] [employer] Phone: Comment on above: Once for 1 Occurrenc es starting 10/10/2021 until 10/10/2021 End: 10-31-2020 Glucose [Mass/volume] in Serum or Plasma Glucose Lab Routine High risk medication use 1 Occurrences starting 10/31/2020 until 10/31/2020 [employer] Phone: Comment on above: 1 Occurrences starti ng 10/31/2020 until 10/31/2020 End: 01-09-2019 Mumps Antibody, IgG Mumps Antibody, IgG Lab Routine Once for 1 Occurrences starting 01/09/2019 until 01/09/2019 [facility] [place] Comment on above: Once for 1 Occurrenc es starting 01/09/2019 until 01/09/2019 Mumps Antibody, IgG Mumps Antibo dy, IgG Lab Routine 01/09/2019 8:59 AM EDT [place] End: 01-09-2019 Rubeola Antibody, IgG Rubeola Antibody, IgG Lab Routine Once for 1 Occurrences starting 01/09/2019 until 01/09/2019 [facility] Comment on above: Once for 1 Occurrenc es starting 01/09/2019 until 01/09/2019 Rubeola Antibody, IgG Rubeola An tibody, IgG Lab Routine 01/09/2019 8:59 AM EDT [employer] [place] End: 10-10-2021 Surgical Pathology Surgical Pathology Lab Routine Atypical mole 1 Occurrences starting 10/10/2021 until 10/10/2021 [employer] Phone: Comment on above: 1 Occurrences starti ng 10/10/2021 until 10/10/2021 End: 07-15-2020 US BREASt COMPLETE LEFT US BREASt COMPLETE LEFT Imaging Routine Abnormality of left breast on screening mammogram 1 Occurrences starting 07/15/2020 until 07/15/2020 [employer] Phone: Comment on above: 1 Occurrences starti ng 07/15/2020 until 07/15/2020 End: 01-09-2019 Varicella Zoster Antibody, IgG Varicella Zoster Antibody, IgG Lab Routine Once for 1 Occurrences starting 01/09/2019 until 01/09/2019 [facility] [place] Comment on above: Once for 1 Occurrenc es starting 01/09/2019 until 01/09/2019 Varicella Zoster Antibody, IgG Varicella Zoster Antibody, IgG Lab Routine 01/09/2019 8:59 AM EDT [place] Payers Date Payer Category Payer Unknown [id number] 2019 Unknown [id number] 2019 Unknown [facility] 2019-Present Indemnity [id number] 2014 Unknown MEDICAL M[employer] M EDICAL MUTUAL [facility] EMP xxxxxxxxxxxx 2014-Present [phone] [address] [place] [address] xxxxxxxxxxxx [id number] 1975 Unknown [id number] 1975 Unknown [id number] 1975 Unknown [id number] 1975 Unknown [id number] 1975 Unknown [id number] 1959 Unknown [id number] Unknown Unknown [id number] Social History Date Type Detail Facility [facility] smoked [place], [place] Start: 1975 Sex Assigned At Not on file [place] Start: 02-25-2020 End: 05-14-2022 Tobacco smoking status NHIS Never smoker [employer] [place], [place] Start: 02-25-2020 End: 05-14-2022 Tobacco use and exposure Never used [employer] [place], [place]ESS[place] Start: 02-25-2020 End: 05-14-2022 Alcohol intake Ex-drinker (finding) [employer] Felipe CHANCE Y Start: 01-13-2020 End: 09-12-2021 History SDOH Financial 5 [employer] [place], BLESSING Start: 01-13-2020 End: 09-12-2021 History SDOH Food Worry 1 [employer] BLESSING CHANCE Start: 01-13-2020 History SDOH Transpo rt Med 2 [employer] BLESSING CHANCE Exposure to SARS-CoV -2 (event) Unable to assess [employer] Exposure to SARS-CoV -2 (event) Not sure [facility] Start: 1975 Sex Assigned At Female [facility] Sex Assigned At Sex Assigned At formerly [facility] Rent Here Other History of Present illness Narrative 09-21-2021 Vahe Jung, PT - 09/21/2021 9:15 AM EDT Note Date & Type Note Facility 09-21-2021 History of Present illness Narrative [facility] Outpatient Physical Therapy Evaluation Date: 09/21/2021 Patient: Omar Whitten : 1975 CSN #: [id number] Referring Physician: Carolyn Reed APRN * Medical Diagnosis: Dizziness, R42 Treatment Diagnosis: R posterior canal BPPV Onset Date: 11/06/17 PT Insurance Information: [place] [facility] Total # of Visits Approved: 6 Total # of Visits to Date: 1 No Show: 0 Canceled Appointment: 0 Subjective Subjective: Patient reports dizziness off and on since 2017 but it's flared up right now, better since being on antivert. She's never had PT for vertigo before. She is having nausea and vomiting with this as well on Saturday. Feels like her eyes are spinning. Stated the doctor did Watton Hallpike the other day and told her she had textbook vertigo. Additional Pertinent Hx: Hx of hysterectomy and gallbladder removal Observations: General Observations Description: (-) B Noah hallpike (no dizziness or nystagmus noted in testing position but may be masked by antivert); treated patient with Laila maneuverx2 for R posterior canal BPPV and patient reports cessation of dizziness following maneuvers. Strength General Strength Testing UE: Right WFL,Left WFL Cervical Assessment AROM Cervical Spine Cervical Spine AROM : WNL Functional Outcome Measures Does looking up increase your problem?: Yes Because of your problem,Do you feel frustrated?: SomeTimes Because of your problem, Do you restrict your travel for business or recreation?: No Does walking down the aisle of a supermarket increase your problem?: SomeTimes Because of your problem, Do you have difficulty getting into or out of bed?: SomeTimes Does your problem significantly restrict your participation in social activities such as going out to dinner, going to movies, dancing, or to parties?: SomeTimes Because of your problem, do you have difficulty reading?: SomeTimes Does performing more ambitious activities like sports, dancing, bounty trapper such as sweeping of putting dishes away increase your problem?: SomeTimes Because of your problem, are you afraid to leave your home without having someone accompany you?: No Because of your problem, have you been embarrassed in front of others?: No Do quick movements of your head increase your problem?: Yes Because of your problem, do you avoid heights?: No Does turning over in bed increase your problem?: SomeTimes Because of your problem, is it difficult for you to do strenuous housework or yardwork?: SomeTimes Because of your problem, are you afraid people may think you are intoxicated?: No Because of your problem, is it difficult for you to go for a walk by yourself?: NoDoes walking down a sidewalk/incline increase your problem?: No Because of your problem, is it difficult for you to concentrate?: No Because of your problem, is it difficult for you to walk around your house in the dark?: SomeTimes Because of your problem, are you afraid to stay home alone?: No Because of your problem, do you feel handicapped?: No Has your problem placed stress on your relationship with members of your family or friends?: No Because of your problem, are you depressed?: No Does your problem interfere with your job or household responsibilities?: SomeTimes Does bending over increase your problem?: SomeTimes Total DHI Score: 30 Assessment Assessment: Patient is 46 year old female with dx of dizziness who presents with dizziness and nausea off and on since 2018 but recently with vomiting on Saturday. Patient presents with CROM and B shoulder ROM WNL's with no pain or dysfunction noted and no hx of headaches.(-) B Watton hallpike (no dizziness or nystagmus noted in testing position but may be masked by antivert); treated patient with Laila maneuverx2 for R posterior canal BPPV and patient reports cessation of dizziness following maneuvers. Educated patient to remain upright for 2 hours following maneuvers and to trial stop taking antivert tomorrow if no dizziness noted. Pt to return for one week follow up as needed. Therapy Prognosis: Good Decision Making: Medium Complexity Patient Education PT eval, POC Pt verbalized/demonstrated good understanding: [X] Yes [] No, pt required further clarification. Goals Short Term Goals Time Frame for Short term goals: 3 weeks Short term goal 1: Patient to tolerate vestibular maneuvers to decrease symptoms of dizziness. Short term goal 2: Patient to report complete cessation of dizziness symptoms to return to PLOF. 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 Minutes Tracking: Time In: 0920 Time Out: 0950 Minutes: 30 Timed Code Treatment Minutes: 29 Minutes Vahe Jung, PT, DPT 09/21/2021 documented in this encounter [employer] Phone: Evaluation note Note Date & Type Note Facility Evaluation note Diagnosis Abnormality of left breast on screening mammogram documented in this encounter [employer] Phone: Evaluation note Note Date & Type Note Facility Evaluation note Diagnosis Abnormality of left breast on screening mammogram documented in this encounter [employer] Phone: Evaluation note Note Date & Type Note Facility Evaluation note Diagnosis High risk medication use Encounter for long-term (current) use of other medications Elevated liver enzymes Nonspecific elevation of levels of transaminase or lactic acid dehydrogenase (LDH) documented in this encounter [employer] Phone: Evaluation note Note Date & Type Note Facility Evaluation note Diagnosis Atypical mole Benign neoplasm of skin, site unspecified documented in this encounter [employer] Phone: Evaluation note Note Date & Type Note Facility Evaluation note Diagnosis Pain in female pelvis Unspecified symptom associated with female genital organs documented in this encounter [employer] [employer] Phone: Evaluation note Note Date & Type Note Facility Evaluation note Diagnosis Screening for osteoporosis Special screening for osteoporosis Premature surgical menopause Postablative ovarian failure documented in this encounter [facility] [employer] Phone: Evaluation note Note Date & Type Note Facility Evaluation note Diagnosis Breast cancer screening by mammogram documented in this encounter [facility] [employer] Phone: Evaluation note Note Date & Type Note Facility Evaluation note No Information [employer] Other History general Narrative - Reported Note Date & Type Note Facility History general Narrative - Reported Type Medical History appendectomy Medical History gall bladder disease Medical History obesity Surgical History GALLBLADDER REMOVED 99 Surgical History HYSTERECTOMY-PARTIAL 04 Surgical History APPENDIX REMOVED 01 Surgical History tonsillectomy Surgical History Foot Surgery Hospitalization History see above Rent Here Other Summary Purpose Family History No Family History Records FoundNo Family History Records FoundNo Family History Records Found Advance Directives Documents on File Type Date Recorded Patient Founder Expl anation Advance Directives and Living Will Power of It Architecture Analyst Documents on File Type Date Recorded Patient Founder Expl anation ACP-Advance Directive ACP-Power of It Architecture Analyst Documents on File Type Date Recorded Patient Founder Expl anation ACP-Advance Directive ACP-Power of It Architecture Analyst Assessments Diagnosis Women's annual routine gynecological examination Diagnosis Obesity (BMI 35.0-39.9 without comorbidity) Obesity, unspecified Chronic left lower quadrant pain Abdominal pain, left lower quadrant Screening cholesterol level Screening for lipoid disorders Diagnosis Sciatica of right side Sciatica Diagnosis Wellness examination Discharge Instructions * Attachments The following attachments cannot be sent through Care Everywhere. * Sciatica (Citizen Of [place]) documented in this encounter Reason for Referral Status Reason Specialty Diagnoses / Procedures Referred By Contact Referred To Contact Pending Review Radiology Diagnoses Abnormality of left breast on screening mammogram Procedures US BREASt COMPLETE LEFT Zeeshan Shaw MD [address] [place] [address] [facility] Ultrasound [address] [place] [id number] Status Reason Specialty Diagnoses / Procedures Referred By Contact Referred To Contact Pending Review Radiology Diagnoses Abnormality of left breast on screening mammogram Procedures MANISH KRYSTIN DIGITAL DIAGNOSTIC UNILATERAL LEFT Zeeshan Shaw MD [address] [place] [address] [facility] [address] [place] [address] Specialty Diagnoses / Procedures Referred By Contac t Referred To Contact Radiology Diagnoses Screening for osteoporosis Premature surgical menopause Procedures DEXA BONE DENSITY AXIAL SKELETON Sharron Alcantara APRN - INCOMING INSPECTOR [id number] [employer] [address] [address] Referral ID Status Reason Start Date Expiration Date V isits Requested Visits Authorized [id number] Pending Review 04/13/2022 04/13/2023 1 1 Specialty Diagnoses / Procedures Referred By Contac t Referred To Contact Radiology Diagnoses Breast cancer screening by mammogram Procedures MANISH KRYSTIN DIGITAL SCREEN BILATERAL Sharron Alcantara APRN - INCOMING INSPECTOR [id number], [place] [address] Referral ID Status Reason Start Date Expiration Date Visits Re quested Visits Authorized [id number] Closed 05/25/2022 05/25/2023 1 1 Additional Source Comments INFORMATION SOURCE (unrecogn ized section and content) DATE CREATED AUTHOR 08/15/2018 [facility] DATE CREATED AUTHOR AUTHOR'S ORGANIZ ATION 04/16/2020 [facility] DATE CREATED AUTHOR AUTHOR'S ORGANIZ ATION 12/10/2022 [facility] Reason for Visit (unrecogniz ed section and content) WMN Referral Reason Comments Back Pain FROI-lower back pain onset while at work- has had bladder incontinence on Saturday- seen at occupational health and recommended to come to ED for MRI Status Reason Specialty Diagnoses / Procedures Referred By Contact Referred To Contact Pending Review Radiology Diagnoses Abnormality of left breast on screening mammogram Procedures US BREASt COMPLETE LEFT Zeeshan Shaw MD [address] [place] [address] [facility] Ultrasound [address] [place], [place] [id number] Status Reason Specialty Diagnoses / Procedures Referred By Contact Referred To Contact Pending Review Radiology Diagnoses Abnormality of left breast on screening mammogram Procedures MANISH KRYSTIN DIGITAL DIAGNOSTIC UNILATERAL LEFT Zeeshan Shaw MD [address] [place] [address] [facility] [address] [place], [place] [phone] Specialty Diagnoses / Procedures Referred By Contac t Referred To Contact Radiology Diagnoses Pain in female pelvis Procedures US PELVIS COMPLETE NON-OB TRANSABDOMINAL AND TRANSVAGINAL US PELVIS COMPLETE Sharron Alcantara APRN - CNP [address], [place] [address] Referral ID Status Reason Start Date Expiration Date Visits Re quested Visits Authorized [id number] Open 04/13/2022 04/13/2023 1 1 Specialty Diagnoses / Procedures Referred By Contac t Referred To Contact Radiology Diagnoses Screening for osteoporosis Premature surgical menopause Procedures DEXA BONE DENSITY AXIAL SKELETON Sharron Alcantara APRN - CNP [address], [place] [address] Referral ID Status Reason Start Date Expiration Date V isits Requested Visits Authorized [id number] Pending Review 04/13/2022 04/13/2023 1 1 Specialty Diagnoses / Procedures Referred By Contac t Referred To Contact Radiology Diagnoses Breast cancer screening by mammogram Procedures MANISH KRYSTIN DIGITAL SCREEN BILATERAL Sharron Alcantara APRN - CNP [address], [place] [address] Referral ID Status Reason Start Date Expiration Date Visits Re quested Visits Authorized [id number] Closed 05/25/2022 05/25/2023 1 1 Care Teams (unrecognized sec tion and content) Food Order Expediter Relationship Specialty Start Date End Date Carolyn Reed, FOOD VENDOR - INCOMING INSPECTOR [address] [place] [address] PCP - General Family Nurse Practitioner 01/13/20 Food Order Expediter Relationship Specialty Start Date End Date Carolyn Reed, FOOD VENDOR - INCOMING INSPECTOR [address] [place] [address] PCP - General Family Nurse Practitioner 01/13/20 Food Order Expediter Relationship Specialty Start Date End Date Carolyn Reed, FOOD VENDOR - INCOMING INSPECTOR [address] [place] [address] PCP - General Family Nurse Practitioner 04/03/22 Food Order Expediter Relationship Specialty Start Date End Date Carolyn Reed, FOOD VENDOR - INCOMING INSPECTOR [address] [facility] [place] [address] PCP - General Family Nurse Practitioner 04/03/22 FOR RECORDS PERTAINING TO PATIENTS WHO ARE OR HAVE BEEN ENROLLED IN A CHEMICAL DEPENDENCY/SUBSTANCEABUSE PROGRAM, SOME INFORMATION MAY BE OMITTED. This clinical summary was aggregated from multiple sources. Caution should be exercised in using it in the provision of clinical care. This summary normalizes information from multiple sources, and as a consequence, information in this document may materially change the coding, format and clinical context of patient data. In addition, data may be omitted in some cases. CLINICAL DECISIONS SHOULD BE BASED ON THE PRIMARY CLINICAL RECORDS. [employer] provides no warranty or guarantee of the accuracy or completeness of information in this document.
--- NOTE | 2023-04-23 16:04 | XR_ITS ---
[address] [address] Patient Name: OMAR HOANG MRN: [id number] date: 1975 Sex: F Assigned Patient Location: [facility] Current Patient Location: Accession/Order Number: [id number] Exam Date: 04/23/2023 15:50 Report Date: 04/24/2023 06:39 At the request of: PATY ADRIAN Procedure: XR lumbar spine 6V w bending EXAMINATION: XR lumbar spine 6V w bending HISTORY: lumbar pain M54.50 COMPARISON: MRI lumbar spine 03/01/2023 FINDINGS: BONES: Grade 1 anterolisthesis of L5 on S1 secondary to bilateral pars interarticularis defects. Normal height of the vertebral bodies; no fracture or bone lesion. Mild degenerative facet arthropathy L5-S1. DISC SPACES: Moderate narrowing L5-S1. PARASPINOUS: Negative. No paraspinous abnormality is seen. OTHER: Negative. XR/XR lumbar spine 6V w bending IMPRESSION: 1. L5 bilateral pars interarticularis defects resulting in grade 1 anterior listhesis; no change in alignment between flexion, extension, neutral position. 2. L5-S1 moderate degenerative disc disease. Electronically authenticated by: FRANKLYN ALLEN Date: 04/24/2023 06:39
== END 2023-04-23 15:39 | disposition home or self-care (01) ==
LOC: RAD 15:42
PROVIDERS: Visit Provider Nurse Practitioner Family
DX: M54.50 Low back pain, unspecified (principal); M51.36 Other intervertebral disc degeneration, lumbar region
CPT/HCPCS: 72114

== ENCOUNTER 2024-12-07 13:16 | Outpatient (OUT) | payer OTHER, SELFPAY ==
--- OUTSIDE RECORDS SUMMARY | 2024-12-07 13:20 | XMS_ITS | Encounter Summary ---
Author Organization [facility] 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 Name Role Phone Carolyn Reed HIGH DENSITY PRESS LABORER - PROFESSIONAL FIGHTER Primary Care Provide r Reason for Visit * Reason Comments Medication Refill Encounter Details Date Type Department Care Team (Late st Contact Info) Description 10/26/2020 Refill [facility] Part of [address] [place] [id number] Carolyn Reed, HIGH DENSITY PRESS LABORER - PROFESSIONAL FIGHTER [address] [place] [address] [address] [place] [address] Medication Refill Social History Tobacco Use Types Packs/Day Years Used Date Smoking Tobacco: Never Smokeless Tobacco: Never Alcohol Use Standard Drinks/Week Comments Not Currently 0 (1 standard drink = 0.6 oz pur e alcohol) Overall Financial Resource Strain (CARDIA) Answe r Date Recorded How hard is it for you to pa y for the very basics like food, housing, medical care, and heating? Not hard at all 01/13/2020 PHQ-2 Answer Date Recorded PHQ-9 Total Score 0 01/13/2020 Hunger Vital Sign Answer Date Recorded Within the past 12 months, y ou worried that your food would run out before you got the money to buy more. Never true 01/13/20 20 Within the past 12 months, t he food you bought just didn't last and you didn't have money to get more. Never true 01/13/2020 PRAPARE - Transportation Answer Date Re corded In the past 12 months, has l ack of transportation kept you from medical appointments or from getting medications? No 12/24 In the past 12 months, has l ack of transportation kept you from meetings, work, or from getting things needed for daily living? No 01/13/2020 Comments No Sex and Gender Information Value Date Recorded Sex Assigned at Female 09/20/2021 1:05 PM EDT Legal Sex Female 1:27 PM EDT Gender Identity Female 09/20/2021 1:05 PM EDT Sexual Orientation Straight 09/20/2021 1: 05 PM EDT documented as of this encounter Plan of Treatment Not on file documented as of this encounter Visit Diagnoses Not on filedocumented in this encounter Care Teams Self Propelled Mining Machine Operator Relationship Specialty Start Date End Date Carolyn Reed, HIGH DENSITY PRESS LABORER - PROFESSIONAL FIGHTER [address] [place] [address] [address] PCP - General Family Nurse Practitioner 04/03/22 documented as of this encounter
--- OUTSIDE RECORDS SUMMARY | 2024-12-07 13:20 | XMS_ITS | Clinical Summary ---
Author Organization [facility] Address [address], [address] [place] [address] Care Team Providers Care Biology Teacher Name Role Phone Carolyn Reed APRN - [employer] PLAYER Primary Care Provide r Allergies No known active allergies Medications cetirizine (ZYRTEC) 5 MG tablet Take 1 tablet by mouth daily Active Ascorbic Acid (VITAMIN C) 250 MG tablet Take 1 tablet by mouth daily Active Calcium Carb-Cholecalcife rol (CALCIUM-VITAMIN D) 500-200 MG-UNIT per tablet Take 1 tablet by mouth 2 times daily (with meals) Active VITAMIN A PO Take by mouth Active VITAMIN E PO Take by mouth Active B Complex Vitamins (VITAMIN B COMPLEX PO) Take by mouth Active montelukast (SINGULAIR) 10 MG tabletIndications :Mild intermittent asthma without complication TAKE 1 TABLET BY MOUTH ONE TIME A DAY 90 tablet 3 3 Active estradiol (ESTRACE) 0.5 MG tabletIndications :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 Take 1 tablet by mouth daily 90 tablet 4 3 Active buPROPion (WELLBUTRIN XL) 150 MG extended release tablet Take 1 tablet by mouth every morning 90 tablet 3 3 Active naproxen (NAPROSYN) 500 MG tablet Take 1 tablet by mouth 2 times daily as needed for Pain (migraine) 90 tablet 1 3 Active ibuprofen (ADVIL;MOTRIN) 800 MG tabletIndications :Musculoskeletal pain TAKE 1 TABLET BY MOUTH EVERY 8 HOURS NEEDED FOR PAIN WITH FOOD 180 tablet 2 4 Active valACYclovir (VALTREX) 500 MG tabletIndications :Recurrent cold sores TAKE 1 TABLET BY MOUTH EVERY DAY 90 tablet 4 Active Active Problems Problem Noted Date Diagnosed Date Family hx of colorectal cancer 12/10/2022 Anxiety 12/04/2022 HSV-1 (herpes simplex virus 1) infection 023 Family history of brain cancer 12/04/2022 Migraine 12/04/2022 Major depressive disorder, recurrent, mild 12/03 Major depressive disorder, recurrent, moderate 0 12/03/2022 Major depressive disorder, recurrent, unspecifie d 12/03/2022 Cellulitis of left toe 08/08/2022 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 Resolved Problems Problem Noted Date Diagnosed Date Resolved Date Encounter for screening colonoscopy 08/08/2022 09/07/2022 Family History Medical History Relation Name Comments Cancer Father Colon, prostate Hypertension Father Hypercalcemia Mother Hypertension Mother Cancer Sister brain Relation Name Status Comments Brother Alive Father Alive Maternal Grandfather Maternal Grandmother Mother Alive Paternal Grandfather Paternal Grandmother Sister Social History Tobacco Use Types Packs/Day Years Used Date Smoking Tobacco: Never Smokeless Tobacco: Never Tobacco Cessation:Counseling Given: Not Answered Alcohol Use Standard Drinks/Week Comments Not Currently 0 (1 standard drink = 0.6 oz pur e alcohol) Overall Financial Resource Strain (CARDIA) Answe r Date Recorded How hard is it for you to pa y for the very basics like food, housing, medical care, and heating? Not hard at all 09/12/2021 PHQ-2 Answer Date Recorded PHQ-9 Total Score 0 08/08/2022 Hunger Vital Sign Answer Date Recorded Within the past 12 months, y ou worried that your food would run out before you got the money to buy more. Never true 09/13/19 22 Within the past 12 months, t he food you bought just didn't last and you didn't have money to get more. Never true 09/12/2021 PRAPARE - Transportation Answer Date Re corded In the past 12 months, has l ack of transportation kept you from medical appointments or from getting medications? No 12/24 In the past 12 months, has l ack of transportation kept you from meetings, work, or from getting things needed for daily living? No 01/13/2020 Food Insecurity Answer Date Recorded Within the past 12 months, y ou worried that your food would run out before you got the money to buy more. 1 05/14/2022 Within the past 12 months, t he food you bought just didn't last and you didn't have money to get more. 1 05/14/2022 Comments No Sex and Gender Information Value Date Recorded Sex Assigned at Female 09/20/2021 1:05 PM EDT Legal Sex Female 1:27 PM EDT Gender Identity Female 09/20/2021 1:05 PM EDT Sexual Orientation Straight 09/20/2021 1: 05 PM EDT Last Filed Vital Signs Vital Sign Reading Time Taken Comments Blood Pressure 120/70 01/09/2023 9:15 AM EDT Pulse 79 01/09/2023 9:15 AM EDT Temperature 36.2 C (97.2 F) 01/09/2023 9:15 AM EDT Respiratory Rate 18 01/09/2023 9:15 AM EDT Oxygen Saturation 97% 01/09/2023 9:15 AM EDT Inhaled Oxygen Concentration - - Weight 105.7 kg (233 lb) 01/09/2023 9:15 AM EDT Height 162.6 cm (5' 4 ) 01/09/2023 9:15 AM EDT Body Mass Index 39.99 01/09/2023 9:15 AM EDT Plan of Treatment Health Maintenance Due Date Last Done Comments Depression Monitoring 1987 DTaP/Tdap/Td vaccine (1 - Tdap) 1994 Hepatitis B vaccine (1 of 3 - 19+ 3-dose series) 1994 Colonoscopy 01/02/2020 Colorectal Cancer Screen 01/02/2020 FIT/FOBT: Average risk 01/02/2020 Fecal-DNA (Cologuard): Average risk 01/02/2020 Sigmoidoscopy/CT colonography 01/02/2020 Breast cancer screen 05/25/2024 05/25/2022, 07/15/2020, 06/15/2020 Flu vaccine (#1) 10/23/2024 COVID-19 Vaccine ( season) 2024 Lipids 12/07/2027 12/06/2022, 11/23, 12/06/2020, Additional history exists Cervical cancer screen Discontinued Pap smear Discontinued 02/25/2020 Diabetes screen Discontinued 12/06/2022, 03/23/2020 HIV screen Completed 12/06/2022 Hepatitis C screen Completed 12/06/2022 HPV (without or with Pap) Discontinued Hepatitis A vaccine Aged Out No longe r eligible based on patient's age to complete this topic Hib vaccine Aged Out No longer eligi ble based on patient's age to complete this topic Meningococcal (ACWY) vaccine Aged Out No longer eligible based on patient's age to complete this topic Meningococcal B vaccine Aged Out No l onger eligible based on patient's age to complete this topic Pneumococcal 0-49 years Vaccine Aged Out No longer eligible based on patient's age to complete this topic Polio vaccine Aged Out No longer elig ible based on patient's age to complete this topic Procedures Procedure Name Priority Date/Time Associated Diagnosis Comments HIV SCREEN Routine 12/06/2022 7:45 AM EDT Wellness examination Encounter for screening for HIV HEPATITIS C ANTIBODY Routine 12/06/2022 7:45 AM EDT Wellness examination Need for hepatitis C screening test HEMOGLOBIN A1C Routine 12/06/2022 7:45 AM EDT Wellness examination LIPID PANEL Routine 12/06/2022 7:45 AM EDT Wellness examination MANISH KRYSTIN DIGITAL SCREEN BILATERAL Routine 05/25/2022 1:03 PM EST Breast cancer screening by mammogram RECEIVING DISTRIBUTION STATION OPERATOR CYTOLOGY Routine 02/25/2020 9:40 AM EST from Last 3 Months or Most Recently Relevant to Health Maintenance Results * Hepatitis C Antibody (12/06/2022 7:45 AM EDT) Hepatitis C Ab NONREACTIVE NONREACTIVE 12/07/19 7:45 AM EDT [employer] Comment: The hepatitis C procedure used in [...] recommended by ordering HCV RNA by PCR. BLOOD SPECIMEN / Unknown 12/06/2022 7:45 AM EDT 12/06/2022 7:46 AM EDT Carolyn Reed TRANSITION NURSE - [employer] PLAYER IMMUNOLOGY ORDERABLES Final Result Performing Organization Address City/[facility]/ZIP Co de Phone Number [facility] [address] [place] [address], [facility] [phone] [employer] [address] [place] [address], [facility] [phone] * HIV Screen (12/06/2022 7:45 AM EDT) Pathologist [facility] HIV Ag/Ab NONREACTIVE NONREACTIVE 12/06/2022 7:45 AM EDT [employer] Comment: No laboratory evidence of HIV infection. If acute HIV infection is suspected, consider testing for HIV-1 RNA. BLOOD SPECIMEN / Unknown 12/06/2022 7:45 AM EDT 12/06/2022 7:46 AM EDT Carolyn Reed TRANSITION NURSE - [facility] IMMUNOLOGY ORDERABLES Final Result Performing Organization Address [facility] Co de Phone Number [facility] [address] [place] [address], [facility] [phone] [employer] [address] [place] [address], [facility] [phone] * Hemoglobin A1C (12/06/2022 7:45 AM EDT) Hemoglobin A1C 5.5 4.0 - 6.0 % 12/06/2022 7:45 AM EDT [employer] Estimated Avg Glucose 111 mg/dL 12/06/2022 7:45 AM EDT [employer] Comment: The ADA and AACC recommend providing the estimated average glucose result to permit better patient understanding of their HBA1c result. BLOOD SPECIMEN / Unknown 12/06/2022 7:45 AM EDT 12/06/2022 7:46 AM EDT Carolyn Reed TRANSITION NURSE - NFL PLAYER CHEMISTRY ORDERABLES Final Result [facility] [address] [place] [address], [facility] [phone] [employer] [address] [place] [address], [facility] [phone] * (ABNORMAL) Lipid Panel (12/06/2022 7:45 AM EDT) Cholesterol 196 <200 mg/dL 12/06/2022 7:45 AM EDT [employer] Comment: Cholesterol Guidelines: <200 Desirable 200-240 Borderline >240 Undesirable HDL 46 >40 mg/dL 12/06/2022 7:45 AM EDT [employer] Comment: HDL Guidelines: <40 Undesirable 40-59 Borderline >59 Desirable LDL Cholesterol 111 0 - 130 mg/dL 12/06/2022 7:45 AM EDT [employer] Comment: LDL Guidelines: <100 Desirable 100-129 Near to/above Desirable 130-159 Borderline >159 Undesirable Direct (measured) LDL and calculated LDL are not interchangeable tests. Chol/HDL Ratio 4.3 <5 12/06/2022 7:45 AM EDT [employer] Comment: Triglycerides 197(H) <150 mg/dL 12/06/2022 7:45 AM EDT [employer] Comment: Triglyceride Guidelines: <150 Desirable 150-199 Borderline 200-499 High >499 Very high Based on AHA Guidelines for fasting triglyceride, December 2011. BLOOD SPECIMEN / Unknown 12/06/2022 7:45 AM EDT 12/06/2022 7:46 AM EDT Carolyn Reed TRANSITION NURSE - NFL PLAYER CHEMISTRY ORDERABLES Final Result [facility] [address] [place] [address], [facility] [phone] [employer] [address] [place] [address], [facility] [phone] * MANISH KRYSTIN DIGITAL SCREEN BILATERAL (05/25/2022 1:03 PM EST) Anatomical Region Laterality Modality Breast Bilateral Mammography 05/25/2022 1:09 PM EST Impressions 05/25/2022 1:49 PM EST No mammographic evidence of malignancy BIRADS: BIRADS - CATEGORY 1 Negative. Normal interval follow-up is recommended in 12 months. OVERALL ASSESSMENT - NEGATIVE A letter of notification will be sent to the patient regarding the results. The [employer] recommends annual mammograms for women 40 years and older. Narrative 05/25/2022 1:49 PM EST EXAMINATION: SCREENING DIGITAL BILATERAL MAMMOGRAM WITH TOMOSYNTHESIS, [...] concerning grouping of microcalcification in either breast. Sharron Alcantara TRANSITION NURSE - NFL PLAYER IM MAMMOGRAPHY ORDERABL ES Final Result * RECEIVING DISTRIBUTION STATION OPERATOR Cytology (02/25/2020 9:40 AM EST) Cytology Report INTERPRETATION Vaginal material, (ThinPrep vial, Imaging-assisted review): Specimen Adequacy: Satisfactory for evaluation. Descriptive Diagnosis: Negative for intraepithelial lesion or malignancy. Print Press Operator: SALINAS Domingo(ASCP) Electronically Signed Out christ/03/07/2020 Source: 1: Vaginal material, (ThinPrep vial, Imaging-assisted review) Clinical History Hysterectomy Z01.419 Routine aoc operations intelligence chief exam without abnormal findings High risk HPV DNA testing is requested if the diagnosis is abnormal GYNECOLOGIC CYTOLOGY REPORT Patient Name: OMAR HOANG [facility] Rec: [id number] Path Number: [id number] [employer] [facility] ANATOMIC PATHOLOGY [address] [place] [address]. [place], [place] [address] [employer] 02/25/2020 9:40 AM EST 02/26/2020 9:40 AM EST Zeeshan Shaw MD PATHOLOGY/CYTOLOGY ORDERABLES Final Result [facility] [address] [place] [address], [facility] [phone] [facility] [employer] [address] [place] [address], [facility] [phone] from Last 3 Months or Most Recently Relevant to Health Maintenance Care Teams Biology Teacher Relationship Specialty Start Date End Date Carolyn Reed, TRANSITION NURSE - NFL PLAYER [address] [place] [address] Dr MAYO [address] [place] [address] PCP - General Family Nurse Practitioner 04/03/22
--- OUTSIDE RECORDS SUMMARY | 2024-12-07 13:20 | XMS_ITS | Encounter Summary ---
Author Organization [facility] Address [address], [address] [place] [address] Care Team Providers Care Aviation Safety Inspector Name Role Phone Carolyn Reed KETTLE OPERATOR HEAD - RETAIL CONSULTANT Primary Care Provide r Reason for Visit * Reason Comments Medication Refill Encounter Details Date Type Department Care Team (Late st Contact Info) Description 04/02/2020 Refill [facility] Part of [address] [place] [id number] Carolyn Reed, KETTLE OPERATOR HEAD - RETAIL CONSULTANT [address] [place] [address] [address] [place] [address] Medication Refill Social History Tobacco [...] on filedocumented in this encounter Care Teams Aviation Safety Inspector Relationship Specialty Start Date End Date Carolyn Reed, KETTLE OPERATOR HEAD - RETAIL CONSULTANT [address] [place] [address] [address] PCP - General Family Nurse Practitioner 04/03/22 documented as of this encounter
--- NOTE | 2024-12-07 13:22 | XR_ITS ---
[address] [address] Patient Name: OMAR HOANG MRN: [id number] date: 1975 Sex: F Assigned Patient Location: [facility] Current Patient Location: [facility] Accession/Order Number: [id number] Exam Date: 12/07/2024 13:42 Report Date: 12/07/2024 15:33 At the request of: GENTRY AGUILLON Procedure: XR sacrum coccyx min 2V SACRUM AND COCCYX - - 3 views CLINICAL HISTORY: Sacrococcygeal Disorder, pain for one month COMPARISON: None FINDINGS: No fracture or dislocation identified. No diastases sacroiliac joints or the pubic symphysis. Minimal degenerative changes right sacroiliac joint noted. Question degenerative changes L5-S1. Pelvic phleboliths XR/XR sacrum coccyx min 2V IMPRESSION: Minimal degenerative change. Negative acute osseous abnormality. Impression dictated by: Guy Tellez M.D. 12/07/2024 3:33 PM Dictation Location: [place] [address] Electronically authenticated by: [id number] Y Date: 12/07/2024 15:33
--- OUTSIDE RECORDS SUMMARY | 2024-12-07 17:45 | XMS_ITS | CCD ---
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 or concerns Unchanged cholecalciferol (Vitamin D3) Contact prescribing physician if questions or concerns Unchanged cyanocobalamin (Vitamin B12) Contact prescribing physician if questions or concerns Unchanged estradiol (estradiol 0.5 mg Tab) See instructions TAKE 1 TABLET BY MOUTH EVERY DAY Contact prescribing physician if questions or concerns Unchanged ibuprofen (ibuprofen 800 mg Tab) See instructions TAKE 1 TABLET BY MOUTH EVERY 8 HOURS NEEDED FOR PAIN 1-3 Contact prescribing physician if questions or concerns Unchanged loratadine Contact prescribing physician if questions or concerns Unchanged montelukast (montelukast 10 mg Tab) See instructions TAKE 1 TABLET BY MOUTH EVERY DAY IN THE EVENING Contact prescribing physician if questions or concerns Unchanged valacyclovir (valacyclovir 500 mg Tab) 500 Milligram By Mouth Every day Contact prescribing physician if questions or concerns Unchanged vitamin A Contact prescribing physician if questions or concerns Unchanged vitamin E Contact prescribing physician if questions or concerns Pharmacy Information [id number]: [address], [place] [phone] Allergies No Known Allergies No Known Medication Allergies Problems Ongoing - Any problem that you are currently receiving treatment for. BMI 34.0-34.9,adult Diarrhea Encounter for weight management Liver enzymes level above reference range Low back pain Mammography abnormal Melanocytic nevus Obesity (BMI 30-39.9) Postablative ovarian failure Sciatica Shingles rash Sprain pelvic ligament Taking high risk medication Patient Survey You may receive a survey via text or e-mail asking about your office visit. Please share your experience with us by completing your survey. We appreciate your feedback and thank you for choosing us for your care. [facility] Family Medicine Office/Clini c Noteon 07-15-2024 Family Medicine Office/Clinic Note Family Medicine Office/Clinic Note Chief Complaint The patient is presenting for weight management discussion. HPI Staff Jia is a 49 year old female presenting with 3 month f/u Weight management Phentermine 37.5 mg Sleeping well:Yes, 6-8 hours Chest pain:No Tremors:No Headaches:No Heart fluttering:No Blurred Vision:No Starting Weight: 238.92 lbs. Weight last visit: 202 lbs. Weight this visit: 196.6.2 lbs. Needs refills for this History of Present Illness 49-year-old female presenting in f/u for weight management. She carries a diagnosis of Class 1 obesity, with a BMI ranging from 33.0 to 33.9, related to excessive caloric intake. Importantly, she is a non-smoker, which is relevant in considering her overall health management strategy. She has been taking phentermine 37.5 mg one tablet po daily for the past year. She has lost 42.71 pounds with the medication and exercise. She implies lifestyle and dietary habits as contributing factors to her current weight status. Review of Systems PHQ Score Initial Depression Screen Score: 0 SCORE Constitutional: no fever, no chills, no sweats, no weakness Respiratory: no shortness of breath, no cough, no orthopnea, no wheezing Cardiovascular: no chest pain, no palpitations, no edema Additional ROS info: Except as noted in the above Review of Systems and in the History of Present Illness all other systems have been reviewed and are negative or noncontributory. Physical Exam Vitals & Measurements T: 36.2 ???C(Oral) HR: 78(Peripheral) RR: 18 BP: 118/80 SpO2: 98% HT: 64 in HT: 163.0 cm WT: 89.0 kg WT: 196.211 lb BMI: 33.5 General: alert, no acute distress Cardiovascular: regular rate and rhythm, normal peripheral perfusion Respiratory: Lungs CTA, respirations non labored Extremities: no deformity, no trauma Neurological: oriented x 4, LOC appropriate for age speech normal Assessment/Plan 1. Encounter for weight management (Z76.89: Persons encountering health services in other specified circumstances) - Focus on lifestyle changes to support weight goals. - Follow-up appointments to monitor progress and adjust plan. - Monitor weight at each visit - OARRS reviewed and found to be appropriate - f/u in 3 months Ordered: phentermine, 37.5 mg = 1 tab(s), Oral, Daily, BMI 33.7 30 day supply, # 30 tab(s), Refills(s) 0, [id number], 163, cm, 07/15/24 8:13:00 EDT, Height/Length Dosing, 89, kg, 07/15/24 8:13:00 EDT, Weight Dosing 2. Body mass index [BMI] 33.0-33.9, adult (Z68.33: Body mass index [BMI] 33.0-33.9, adult) The standard range for ages 18 and older is >=18.5 and < 25 kg/m2. Your BMI today was above this range, this falls in the overweight to obese category and there are medical benefits to weight loss. We can offer counselling, referral, and/or medical support in addressing this problem. Your BMI and weight management will be followed at subsequent visits. 3. Non-smoker (Z78.9: Other specified health status) - Acknowledges non-smoking status, beneficial for general health and obesity management. Follow-up With When Contact Information KYARA MORAN CNP, FAM Within [address] [place] [phone] Business (1) Additional Instructions: Weight Management & wellness visit Patient Education Diet and Dental Disease Problem List/Past Medical History Ongoing Body mass index [BMI] 33.0-33.9, adult Diarrhea Encounter for weight management Liver enzymes level above reference range Low back pain Mammography abnormal Melanocytic nevus Obesity (BMI 30-39.9) Postablative ovarian failure Sciatica Shingles rash Sprain pelvic ligament Taking high risk medication Historical BMI 34.0-34.9,adult Procedure/Surgical History Partial hysterectomy (2001), Cholecystectomy (1997), Tonsillectomy (1995), Umbilical hernia (1977). Medications Adipex-P 37.5 mg Tab, 37.5 mg= 1 tab(s), Oral, Daily buPROPion 150 mg ER Tab, 150 mg= 1 tab(s), Oral, Daily, 1 refills calcium (as carbonate) 500 mg oral tablet estradiol 0.5 mg Tab, See Instructions, 1 refills ibuprofen 800 mg Tab, See Instructions loratadine montelukast 10 mg Tab, See Instructions, 1 refills valacyclovir 500 mg Tab, 500 mg, Oral, Daily, 1 refills vitamin A Vitamin B12 Vitamin C Vitamin D3 vitamin E Allergies No Known Allergies No Known Medication Allergies Social History Alcohol - Denies Alcohol Use, 04/29/2023 Never., 01/15/2024 Substance Abuse - Denies Substance Abuse, 04/29/2023 Never., 01/15/2024 Tobacco - Denies Tobacco Use, 04/29/2023 Never (less than 100 in lifetime) Tobacco Use:. Never Smokeless Tobacco Use:. Household tobacco concerns: No. Yes, 07/15/2024 Family History Hypertension: Mother and Father. Primary malignant neoplasm of brain: Sister. Primary malignant neoplasm of colon: Father. [facility] Comment on above: Result Comment: Elec tronically Signed By: KYARA MORAN CNP\.br\Date and Time Signed: 07/15/24 09:07 EDT Family Medicine Office/Clini c Noteon 04-20-2024 Family Medicine Office/Clinic Note Family Medicine Office/Clinic Note Chief Complaint 3m Weight Management HPI Staff Jia is a 49 year old female presenting with 3 month f/u Weight management Phentermine 37.5 mg Sleeping well:Yes, 6-8 hours Chest pain:No Tremors:No Headaches:No Heart fluttering:No Blurred Vision:No Starting Weight: 238.92 lbs Weight last visit: 205.92 lbs. Weight this visit: 202lbs Drug Screen & Med agreement updated today History of Present Illness Patient presents today in f/u for weight management.She has lost 3.095 lbs since her last visit. She continues to take the Adipex daily and has no adverse effects to report. She has lost 36.095 pounds since April 2023. She states she has been exercising and managing her portions. She reports no adverse effects to the medication and is very pleased with her results thus far. Review of Systems PHQ Score Initial Depression Screen Score: 0 SCORE Constitutional: no fever, no chills, no sweats, no weakness Respiratory: no shortness of breath, no cough, no orthopnea, no wheezing Cardiovascular: no chest pain, no palpitations, no edema Additional ROS info: Except as noted in the above Review of Systems and in the History of Present Illness all other systems have been reviewed and are negative or noncontributory. Physical Exam Vitals & Measurements T: 37.1 ???C(Tympanic) HR: 86(Peripheral) RR: 18 BP: 124/78 SpO2: 98% HT: 64 in HT: 163 cm WT: 92.0 kg WT: 202.825 lb BMI: 34.63 General: alert, no acute distress Cardiovascular: regular rate and rhythm, normal peripheral perfusion Respiratory: Lungs CTA, respirations non labored Extremities: no deformity, no trauma Neurological: oriented x 4, LOC appropriate for age speech normal Assessment/Plan 1. Encounter for weight management (Z76.89: Persons encountering health services in other specified circumstances) BMI- 34.63 down from 40.63 Refill of phentermine 37.5 mg one tablet in the AM at this visit Encourage portion control and daily exercise OARRS reviewed and found appropriate UDS completed today in the office Medication Agreement renewed today at this visit Continue daily exercise and portion control f/u in 3 months Ordered: phentermine, 37.5 mg = 1 tab(s), Oral, Daily, BMI 34.32, # 30 tab(s), Refills(s) 0, Pharmacy: [facility]/pharmacy #[id number], 163, cm, 04/20/24 14:42:00 EST, Height/Length Dosing, 92, kg, 04/20/24 14:42:00 EST, Weight Dosing Drug Screen POC 31345 2. BMI 34.0-34.9,adult (Z68.34: Body mass index [BMI] 34.0-34.9, adult) BMI- 34.63 down from 40.63 Refill of phentermine 37.5 mg one tablet in the AM at this visit OARRS reviewed and found appropriate Medication Agreement renewed today at this visit Continue daily exercise and portion control f/u in 3 months Obesity, (E66.9: Obesity, unspecified)Obesity (BMI 30-39.9) BMI- 34.63 down from 40.63 Refill of phentermine 37.5 mg one tablet in the AM at this visit OARRS reviewed and found appropriate Medication Agreement renewed today at this visit Continue daily exercise and portion control f/u in 3 months Ordered: phentermine, 37.5 mg = 1 tab(s), Oral, Daily, BMI 34.32, # 30 tab(s), Refills(s) 0, Pharmacy: [facility]/pharmacy #[id number], 163, cm, 04/20/24 14:42:00 EST, Height/Length Dosing, 92, kg, 04/20/24 14:42:00 EST, Weight Dosing Orders: naproxen, 500 mg = 1 tab(s), Oral, BID, PRN Pain, # 180 tab(s), Refills(s) 0, Pharmacy: [id number], 163.5, cm, 05/27/23 8:00:00 EST, Height/Length Dosing, 103.6, kg, 05/27/23 8:00:00 EST, Weight Dosing Follow-up No qualifying data available Patient Education Obesity, Adult, [id number] Problem List/Past Medical History Ongoing BMI 34.0-34.9,adult Diarrhea Encounter for weight management Liver enzymes level above reference range Low back pain Mammography abnormal Melanocytic nevus Obesity (BMI 30-39.9) Postablative ovarian failure Sciatica Shingles rash Sprain pelvic ligament Taking high risk medication Historical No qualifying data Procedure/Surgical History Partial hysterectomy (2001), Cholecystectomy (1997), Tonsillectomy (1995), Umbilical hernia (1977). Medications Adipex-P 37.5 mg Tab, 37.5 mg= 1 tab(s), Oral, Daily buPROPion 150 mg ER Tab, 150 mg= 1 tab(s), Oral, Daily, 1 refills calcium (as carbonate) 500 mg oral tablet estradiol 0.5 mg Tab, See Instructions ibuprofen 800 mg Tab, 800 mg= 1 tab(s), Oral, q8hr, PRN, 1 refills loratadine montelukast 10 mg Tab, See Instructions valacyclovir 500 mg Tab, 500 mg, Oral, Daily vitamin A Vitamin B12 Vitamin C Vitamin D3 vitamin E Allergies No Known Allergies No Known Medication Allergies Social History Alcohol - Denies Alcohol Use, 04/29/2023 Never., 01/15/2024 Substance Abuse - Denies Substance Abuse, 04/29/2023 Never., 01/15/2024 Tobacco - Denies Tobacco Use, 04/29/2023 Never (less than 100 in lifetime) Tobacco Use:. Never Smokeless Tobacco Use:. Household tobacco concerns: (more content not included)... [facility] Comment on above: Result Comment: Elec tronically Signed By: KYARA MORAN CNP\.br\Date and Time Signed: 04/20/24 15:10 EST Ambulatory Visit Summaryon 1 Ambulatory Visit Summary Ambulatory Visit Summary JIA WHITTEN :1975 Visit Date:01/20/2024 Ambulatory Visit Instructions Your Diagnosis Obesity (BMI 30-39.9) Non-smoker BMI 34.0-34.9,adult Your Care Team Attending Physician - KYARA MORAN CNP Primary Care Physician - KYARA MORAN CNP This Is Your Medications List phentermine (Adipex-P 37.5 mg Tab) Contact prescribing physician if questions or concerns Misc Prescription (cephalexin (Keflex 500 mg Cap)) Misc Prescription (cephalexin (Keflex 500 mg Cap)) ascorbic acid (Vitamin C) buPROPion (buPROPion 150 mg ER Tab) calcium carbonate (calcium (as carbonate) 500 mg oral tablet) cholecalciferol (Vitamin D3) cyanocobalamin (Vitamin B12) estradiol (estradiol 0.5 mg Tab) ibuprofen (ibuprofen 800 mg Tab) loratadine montelukast (montelukast 10 mg Tab) naproxen (naproxen 500 mg Tab) valacyclovir (valacyclovir 500 mg Tab) vitamin A vitamin E Procedures Performed Partial hysterectomy (2001), Cholecystectomy (1997), Tonsillectomy (1995), Umbilical hernia (1977). Discharge Vitals Temperature (Tympanic) 36.5 ???C Heart Rate (Peripheral) 67 Respiratory Rate 18 Blood Pressure 148/88 Height 163.8 cm Height 64 in Weight 93.6 kg Weight 205.92 lb BMI 34.89 What to do next Scheduled Follow-Up Appointments Saturday 8:00 AM EST With: KYARA MORAN CNP Where: [address] [id number]- Medications What How Much When Why Instructions Unchanged phentermine (Adipex-P 37.5 mg Tab) 1 Tablets By Mouth Every day Obesity Obesity (BMI 30-39.9) Pickup at [facility]/pharmacy #[id number] Unchanged ascorbic acid (Vitamin C) Contact prescribing physician if questions or concerns Unchanged buPROPion (buPROPion 150 mg ER Tab) 1 Tablets By Mouth Every day Contact prescribing physician if questions or concerns Unchanged calcium carbonate (calcium (as carbonate) 500 mg oral tablet) Contact prescribing physician if questions or concerns Unchanged cholecalciferol (Vitamin D3) Contact prescribing physician if questions or concerns Unchanged cyanocobalamin (Vitamin B12) Contact prescribing physician if questions or concerns Unchanged estradiol (estradiol 0.5 mg Tab) See instructions TAKE 1 TABLET BY MOUTH EVERY DAY Contact prescribing physician if questions or concerns Unchanged ibuprofen (ibuprofen 800 mg Tab) 1 Tablets By Mouth Every 8 hours as needed for Pain 1-3 Contact prescribing physician if questions or concerns Unchanged loratadine Contact prescribing physician if questions or concerns Unchanged Misc Prescription (cephalexin (Keflex 500 mg Cap)) 1 Capsules Every 12 hours Contact prescribing physician if questions or concerns Unchanged Misc Prescription (cephalexin (Keflex 500 mg Cap)) 1 Capsules Every 12 hours Contact prescribing physician if questions or concerns Unchanged montelukast (montelukast 10 mg Tab) See instructions TAKE 1 TABLET BY MOUTH EVERY DAY IN THE EVENING Contact prescribing physician if questions or concerns Unchanged naproxen (naproxen 500 mg Tab) 1 Tablets By Mouth 2 times a day as needed for Pain Contact prescribing physician if questions or concerns Unchanged valacyclovir (valacyclovir 500 mg Tab) 500 Milligram By Mouth Every day Contact prescribing physician if questions or concerns Unchanged vitamin A Contact prescribing physician if questions or concerns Unchanged vitamin E Contact prescribing physician if questions or concerns Pharmacy Information [facility]/pharmacy #[id number]: [address], [place] [phone] Allergies No Known Allergies No Known Medication Allergies Problems Ongoing - Any problem that you are currently receiving treatment for. BMI 34.0-34.9,adult Diarrhea Liver enzymes level above reference range Low back pain Mammography abnormal Melanocytic nevus Obesity (BMI 30-39.9) Postablative ovarian failure Sciatica Shingles rash Sprain pelvic ligament Taking high risk medication Patient Survey You may receive a survey via text or e-mail asking about your office visit. Please share your experience with us by completing your survey. We appreciate your feedback and thank you for choosing us for your care. [facility] Family Medicine Office/Clini c Noteon 01-20-2024 Family Medicine Office/Clinic Note Family Medicine Office/Clinic Note Chief Complaint 3m weight check HPI Staff Jia is a 49 year old female presenting with 3 month f/u weight Weight management Phentermine 37.5 mg Sleeping well:Yes, 6-8 hours Chest pain:No Tremors:No Headaches:No Heart fluttering:No Blurred Vision:No Starting Weight: 238.92 lbs. Weight last visit: 209.88 lbs. Weight this visit: 206 Last Med Agreement Signed 10/21/23 History of Present Illness Patient presents today in f/u for weight management. She has lost 3.96 lbs since her last visit. She continues to take the Adipex daily and has no adverse effects to report. She has lost 33 pounds since April 2023. She states she has been exercising and managing her portions. She reports no adverse effects to the medication and is very pleased with her results thus far. Her blood pressure is elevated today in the office at 148/88 and it was rechecked and remained elevated. Review of Systems PHQ Score Initial Depression Screen Score: 0 SCORE Physical Exam Vitals & Measurements T: 36.5 ???C(Tympanic) HR: 67(Peripheral) RR: 18 BP: 148/88 SpO2: 97% HT: 64 in HT: 163.8 cm WT: 93.6 kg WT: 205.92 lb BMI: 34.89 General: alert, no acute distress ENMT: TM's clear, oral mucosa moist, no pharyngeal erythema or exudate Cardiovascular: regular rate and rhythm, normal peripheral perfusion Respiratory: Lungs CTA, respirations non labored Extremities: no deformity, no trauma Neurological: oriented x 4, LOC appropriate for age, CN II-XII intact, motor strength equal & normal bilaterally, sensation equal & normal bilaterally, speech normal Assessment/Plan 1. Obesity (BMI 30-39.9) (E66.9: Obesity, unspecified) BMI- 34.89 down from 40.63 Refill of phentermine 37.5 mg one tablet in the AM at this visit Discussed with patient blood pressure elevation- Patient will monitor blood pressure and call in results to this provider on . Explained to patient if blood pressure remains elevated we will discontinue the Adipex. OARRS reviewed and found appropriate Medication Agreement renewed today at this visit Continue daily exercise and portion control f/u in 3 months Ordered: phentermine, 37.5 mg = 1 tab(s), Oral, Daily, # 30 tab(s), Refills(s) 0, Pharmacy: [facility] #[id number], 163.8, cm, 01/20/24 8:05:00 EDT, Height/Length Dosing, 93.6, kg, 01/20/24 8:05:00 EDT, Weight Dosing 2. Non-smoker (Z78.9: Other specified health status) Encouraged to continue is a non-smoker 3. BMI 34.0-34.9,adult (Z68.34: Body mass index [BMI] 34.0-34.9, adult) BMI is 34.89 Monitor weight at each visit Encourage daily exercise Discussed portion control Orders: cephalexin, 500 mg = 1 cap(s), Oral, q12hr, # 20 cap(s), Refills(s) 0, Pharmacy: [facility]/pharmacy #[id number], 163.8, cm, 11/22/23 10:59:00 EDT, Height/Length Dosing, 94.5, kg, 10/21/23 7:57:00 EDT, Weight Dosing Follow-up With When Contact Information KYARA MORAN CNP, FAM Within [address] [place] [phone] Business (1) Additional Instructions: Weight management Problem List/Past Medical History Ongoing BMI 34.0-34.9,adult Diarrhea Liver enzymes level above reference range Low back pain Mammography abnormal Melanocytic nevus Obesity (BMI 30-39.9) Postablative ovarian failure Sciatica Shingles rash Sprain pelvic ligament Taking high risk medication Historical No qualifying data Procedure/Surgical History Partial hysterectomy (2001), Cholecystectomy (1997), Tonsillectomy (1995), Umbilical hernia (1977). Medications Adipex-P 37.5 mg Tab, 37.5 mg= 1 tab(s), Oral, Daily buPROPion 150 mg ER Tab, 150 mg= 1 tab(s), Oral, Daily, 1 refills calcium (as carbonate) 500 mg oral tablet cephalexin (Keflex 500 mg Cap), 1 cap(s), q12hr cephalexin (Keflex 500 mg Cap), 1 cap(s), q12hr estradiol 0.5 mg Tab, See Instructions ibuprofen 800 mg Tab, 800 mg= 1 tab(s), Oral, q8hr, PRN, 1 refills loratadine montelukast 10 mg Tab, See Instructions naproxen 500 mg Tab, 500 mg= 1 tab(s), Oral, BID, PRN valacyclovir 500 mg Tab, 500 mg, Oral, Daily vitamin A Vitamin B12 Vitamin C Vitamin D3 vitamin E Allergies No Known Allergies No Known Medication Allergies Social History Alcohol - Denies Alcohol Use, 04/29/2023 Never., 01/15/2024 Substance Abuse - Denies Substance Abuse, 04/29/2023 Never., 01/15/2024 Tobacco - Denies Tobacco Use, 04/29/2023 Never (less than 100 in lifetime) Tobacco Use:. Never Smokeless Tobacco Use:. Household tobacco concerns: No. Yes, 01/20/2024 Family History Hypertension: Mother and Father. Primary malignant neoplasm of brain: Sister. Primary malignant neoplasm of colon: Father. [facility] Comment on above: Result Comment: Elec tronically Signed By: KYARA MORAN CNP\.br\Date and Time Signed: 01/20/24 08:59 EDT Family Medicine Office/Clini c Noteon 2024 Family Medicine Office/Clinic Note Family Medicine Office/Clinic Note HPI Staff Jia is a 48 year old female presenting with possible shingles Onset: Itchy yesterday Location: back Characteristics:_bumps , red, itchy, [place], feels like she pulled a muscle Aggravated by: Relieved by: nothing History of Present Illness pt presents today with rash on back Review of Systems PHQ Score Initial Depression Screen Score: 0 SCORE Physical Exam Vitals & Measurements T: 36.4 ?C(Oral) HR: 82(Peripheral) RR: 20 BP: 122/82 SpO2: 97% HT: 64 in HT: 163.8 cm WT: 95.4 kg WT: 209.88 lb BMI: 35.56 General: alert, no acute distress ENMT: oral mucosa moist, no pharyngeal erythema or exudate Cardiovascular: regular rate and rhythm, normal peripheral perfusion Respiratory: Lungs CTA, respirations non labored Extremities: no deformity, no trauma Neurological: oriented x 4, LOC appropriate for age, CN II-XII intact, motor strength equal & normal bilaterally, speech normal red raised linear rash right abdomen/lower back Assessment/Plan 1. Shingles rash (B02.9: Zoster without complications) pt presents today with the start of shingles rash. started itching yesterday. today it is red and rash is in a line on right side of abdomen/lower back. and it is starting to have a burning sensation. pt takes valtrex daily for cold sores. pt will take 2 tabs daily for 5 day. RTC as needed 2. Non-smoker (Z78.9: Other specified health status) continue not smoking 3. BMI 35.0-35.9,adult (Z68.35: Body mass index [BMI] 35.0-35.9, adult) BMI education 4. 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 Medications Adipex-P 37.5 mg Tab, 37.5 mg= 1 tab(s), Oral, Daily buPROPion 150 mg ER Tab, 150 mg= 1 tab(s), Oral, Daily calcium (as carbonate) 500 mg oral tablet estradiol 0.5 mg Tab, 0.5 mg= 1 tab(s), Oral, Daily ibuprofen 800 mg Tab, 800 mg= 1 tab(s), Oral, q8hr, PRN, 1 refills Keflex 500 mg Cap, 500 mg= 1 cap(s), Oral, q12hr loratadine montelukast 10 mg Tab, 10 mg= 1 tab(s), Oral, qPM naproxen 500 mg Tab, 500 mg= 1 tab(s), Oral, BID, PRN valacyclovir 500 mg Tab, 500 mg, Oral, Daily vitamin A Vitamin B12 Vitamin C Vitamin D3 vitamin E Allergies No Known Medication Allergies Social History Alcohol - Denies Alcohol Use, 04/29/2023 Substance Abuse - Denies Substance Abuse, 04/29/2023 Tobacco - Denies Tobacco Use, 04/29/2023 Never Smokeless Tobacco Use:. Cigarettes, 2024 Family History Hypertension: Mother and Father. Primary malignant neoplasm of brain: Sister. Primary malignant neoplasm of colon: Father. [facility] Comment on above: Result Comment: Elec tronically Signed By: Rosanna Avalos\.br\Date and Time Signed: 01/01/24 17:41 EDT Ambulatory Visit Summaryon 0 11-22-2023 Ambulatory Visit Summary Ambulatory Visit Summary JIA WHITTEN :1975 Visit Date:11/22/2023 Ambulatory Visit Instructions Your Care Team Attending Physician - KYARA MORAN CNP Primary Care Physician - KYARA MORAN CNP This Is Your Medications List ascorbic acid (Vitamin C) buPROPion (buPROPion 150 mg ER Tab) calcium carbonate (calcium (as carbonate) 500 mg oral tablet) cholecalciferol (Vitamin D3) cyanocobalamin (Vitamin B12) estradiol (estradiol 0.5 mg Tab) ibuprofen (ibuprofen 800 mg Tab) loratadine montelukast (montelukast 10 mg Tab) naproxen (naproxen 500 mg Tab) phentermine (Adipex-P 37.5 mg Tab) valacyclovir (valacyclovir 500 mg Tab) vitamin A vitamin E Procedures Performed Partial hysterectomy (2001), Cholecystectomy (1997), Tonsillectomy (1995), Umbilical hernia (1977). What to do next Scheduled Follow-Up Appointments Saturday 8:00 AM EDT With: KYARA MORAN CNP Where: [facility] [place] [phone]- Medications What How Much When Why Instructions Unchanged ascorbic acid (Vitamin C) Unchanged buPROPion (buPROPion 150 mg ER Tab) 1 Tablets By Mouth Every day Unchanged calcium carbonate (calcium (as carbonate) 500 mg oral tablet) Unchanged cholecalciferol (Vitamin D3) Unchanged cyanocobalamin (Vitamin B12) Unchanged estradiol (estradiol 0.5 mg Tab) 1 Tablets By Mouth Every day Obesity (BMI 30-39.9) BMI 37.0-37.9, adult Unchanged ibuprofen (ibuprofen 800 mg Tab) 1 Tablets By Mouth Every 8 hours as needed for Pain 1-3 Unchanged loratadine Unchanged montelukast (montelukast 10 mg Tab) 1 Tablets By Mouth Once a day (in the evening) Unchanged naproxen (naproxen 500 mg Tab) 1 Tablets By Mouth 2 times a day as needed for Pain Unchanged phentermine (Adipex-P 37.5 mg Tab) 1 Tablets By Mouth Every day Obesity Unchanged valacyclovir (valacyclovir 500 mg Tab) 500 Milligram By Mouth Every day Unchanged vitamin A Unchanged vitamin E Allergies No Known Medication Allergies Problems Ongoing - Any problem that you are currently receiving treatment for. Diarrhea Liver enzymes level above reference range Low back pain Mammography abnormal Melanocytic nevus Obesity (BMI 30-39.9) Postablative ovarian failure Sciatica Sprain pelvic ligament Taking high risk medication Patient Survey You may receive a survey via text or e-mail asking about your office visit. Please share your experience with us by completing your survey. We appreciate your feedback and thank you for choosing us for your care. Normal [facility] Family Medicine Office/Clini c Noteon 11-22-2023 Family Medicine Office/Clinic Note Family Medicine Office/Clinic Note HPI Staff Pt presents today due to possibly having glass stuck in finger following breaking a jar 6wks ago. History of Present Illness Patient presents today for evaluation of what she believes is a piece of glass in her finger. She states she cut it about 6 weeks ago on a jelly jar. She has been soaking the finger in epsom salts. She states she has been digging the area whee she thinks the glass is but she has not been able to get it out. She reports she was driving the other day and saw the glass glisten with the sun shining in the window. Review of Systems PHQ Score Initial Depression Screen Score: 0 SCORE Physical Exam Vitals & Measurements HR: 68(Peripheral) RR: 18 BP: 128/82 SpO2: 100% HT: 64 in HT: 163.8 cm General: alert, no acute distress Skin: warm, dry, tip of the middle finger with a sharp edge sticking out of the finger Cardiovascular: regular rate and rhythm, normal peripheral perfusion Respiratory: Lungs CTA, respirations non labored Extremities: no deformity, no trauma Neurological: oriented x 4, LOC appropriate for age speech normal Psychiatric: cooperative, affect appropriate for age, normal judgement, normal psychiatric thoughts. Assessment/Plan 1. Foreign body in finger-infected (S60.459A: Superficial foreign body of unspecified finger, initial encounter) Removal of small piece of glass from the end of the finger Encouraged to continue to soak with epsom salt Start cephalexin 500 mg one tablet po BID f/u as needed Ordered: cephalexin, 500 mg = 1 cap(s), Oral, q12hr, # 20 cap(s), Refills(s) 0, Pharmacy: [facility]/pharmacy #[id number], 163.8, cm, 11/22/23 10:59:00 EDT, Height/Length Dosing, 94.5, kg, 10/21/23 7:57:00 EDT, Weight Dosing Local infection of the skin and subcutaneous tissue, unspecified (L08.9: Local infection of the skin and subcutaneous tissue, unspecified) Removal of small piece of glass from the end of the finger Encouraged to continue to soak with epsom salt Start cephalexin 500 mg one tablet po BID f/u as needed Follow-up No qualifying data available Patient Education Hand or Foot Foreign Body, Adult Problem List/Past Medical History Ongoing Diarrhea Liver enzymes level above reference range Low back pain Mammography abnormal Melanocytic nevus Obesity (BMI 30-39.9) Postablative ovarian failure Sciatica Sprain pelvic ligament Taking high risk medication Historical No qualifying data Procedure/Surgical History Partial hysterectomy (2001), Cholecystectomy (1997), Tonsillectomy (1995), Umbilical hernia (1977). Medications Adipex-P 37.5 mg Tab, 37.5 mg= 1 tab(s), Oral, Daily buPROPion 150 mg ER Tab, 150 mg= 1 tab(s), Oral, Daily calcium (as carbonate) 500 mg oral tablet estradiol 0.5 mg Tab, 0.5 mg= 1 tab(s), Oral, Daily ibuprofen 800 mg Tab, 800 mg= 1 tab(s), Oral, q8hr, PRN, 1 refills Keflex 500 mg Cap, 500 mg= 1 cap(s), Oral, q12hr loratadine montelukast 10 mg Tab, 10 mg= 1 tab(s), Oral, qPM naproxen 500 mg Tab, 500 mg= 1 tab(s), Oral, BID, PRN valacyclovir 500 mg Tab, 500 mg, Oral, Daily vitamin A Vitamin B12 Vitamin C Vitamin D3 vitamin E Allergies No Known Medication Allergies Social History Alcohol - Denies Alcohol Use, 04/29/2023 Substance Abuse - Denies Substance Abuse, 04/29/2023 Tobacco - Denies Tobacco Use, 04/29/2023 Never (less than 100 in lifetime) Tobacco Use:. Never Smokeless Tobacco Use:. Cigarettes, 11/22/2023 Family History Hypertension: Mother and Father. Primary malignant neoplasm of brain: Sister. Primary malignant neoplasm of colon: Father. [facility] Comment on above: Result Comment: Elec tronically Signed By: KYARA MORAN CNP\.br\Date and Time Signed: 11/22/23 17:37 EDT Ambulatory Visit Summaryon 0 10-21-2023 Ambulatory Visit Summary Ambulatory Visit Summary JIA WHITTEN :1975 Visit Date:10/21/2023 Ambulatory Visit Instructions Your Diagnosis Encounter for weight management Your Care Team Attending Physician - KYARA MORAN CNP Primary Care Physician - KYARA MORAN CNP This Is Your Medications List phentermine (Adipex-P 37.5 mg Tab) Contact prescribing physician if questions or concerns ascorbic acid (Vitamin C) buPROPion (buPROPion 150 mg ER Tab) calcium carbonate (calcium (as carbonate) 500 mg oral tablet) cholecalciferol (Vitamin D3) cyanocobalamin (Vitamin B12) estradiol (estradiol 0.5 mg Tab) ibuprofen (ibuprofen 800 mg Tab) loratadine montelukast (montelukast 10 mg Tab) naproxen (naproxen 500 mg Tab) valacyclovir (valacyclovir 500 mg Tab) vitamin A vitamin E Procedures Performed Partial hysterectomy (2001), Cholecystectomy (1997), Tonsillectomy (1995), Umbilical hernia (1977). Discharge Vitals Heart Rate (Peripheral) 65 Blood Pressure 118/78 Height 163.5 cm Height 64 in Weight 94.5 kg Weight 207.9 lb BMI 35.35 What to do next Scheduled Follow-Up Appointments Saturday 8:00 AM EDT With: KYARA MORAN CNP Where: [place] [id number]- Medications What How Much When Why Instructions Unchanged phentermine (Adipex-P 37.5 mg Tab) 1 Tablets By Mouth Every day Obesity Pickup at [facility] Unchanged ascorbic acid (Vitamin C) Contact prescribing physician if questions or concerns Unchanged buPROPion (buPROPion 150 mg ER Tab) 1 Tablets By Mouth Every day Contact prescribing physician if questions or concerns Unchanged calcium carbonate (calcium (as carbonate) 500 mg oral tablet) Contact prescribing physician if questions or concerns Unchanged cholecalciferol (Vitamin D3) Contact prescribing physician if questions or concerns Unchanged cyanocobalamin (Vitamin B12) Contact prescribing physician if questions or concerns Unchanged estradiol (estradiol 0.5 mg Tab) 1 Tablets By Mouth Every day Obesity (BMI 30-39.9) BMI 37.0-37.9, adult Contact prescribing physician if questions or concerns Unchanged ibuprofen (ibuprofen 800 mg Tab) 1 Tablets By Mouth Every 8 hours as needed for Pain 1-3 Contact prescribing physician if questions or concerns Unchanged loratadine Contact prescribing physician if questions or concerns Unchanged montelukast (montelukast 10 mg Tab) 1 Tablets By Mouth Once a day (in the evening) Contact prescribing physician if questions or concerns Unchanged naproxen (naproxen 500 mg Tab) 1 Tablets By Mouth 2 times a day as needed for Pain Contact prescribing physician if questions or concerns Unchanged valacyclovir (valacyclovir 500 mg Tab) 500 Milligram By Mouth Every day Contact prescribing physician if questions or concerns Unchanged vitamin A Contact prescribing physician if questions or concerns Unchanged vitamin E Contact prescribing physician if questions or concerns Pharmacy Information [facility]: [address] [place], [place] [id number] [phone] Allergies No Known Medication Allergies Problems Ongoing - Any problem that you are currently receiving treatment for. Diarrhea Liver enzymes level above reference range Low back pain Mammography abnormal Melanocytic nevus Obesity (BMI 30-39.9) Postablative ovarian failure Sciatica Sprain pelvic ligament Taking high risk medication Patient Survey You may receive a survey via text or e-mail asking about your office visit. Please share your experience with us by completing your survey. We appreciate your feedback and thank you for choosing us for your care. [facility] Family Medicine Office/Clini c Noteon 10-21-2023 Family Medicine Office/Clinic Note Family Medicine Office/Clinic Note Chief Complaint f/u for weight management HPI Staff Pt. states no concerns at this time, no side effects from medication Weight management Phentermine 37.5 mg Sleeping well:Yes, 6-8 hours Chest pain:No Tremors:No Headaches:No Heart fluttering:No Blurred Vision:No Starting Weight: 238.92 Weight last visit: 215.38 Weight this visit: 207.9 History of Present Illness Patient presents today in f/u for weight management. She has lost 7.48 lbs since her last visit. She continues to take the Adipex daily and has no adverse effects to report. She has lost 31.02 pounds in the past five months. She states she has been exercising and managing her portions. She reports no adverse effects to the medication and is very pleased with her results thus far. Review of Systems PHQ Score Initial Depression Screen Score: 0 SCORE Constitutional: no fever, no chills, no sweats, no weakness Respiratory: no shortness of breath, no cough, no orthopnea, no wheezing Cardiovascular: no chest pain, no palpitations, no edema Additional ROS info: Except as noted in the above Review of Systems and in the History of Present Illness all other systems have been reviewed and are negative or noncontributory. Physical Exam Vitals & Measurements HR: 65(Peripheral) BP: 118/78 SpO2: 98% HT: 64 in HT: 163.5 cm WT: 94.5 kg WT: 207.9 lb BMI: 35.35 General: alert, no acute distress Cardiovascular: regular rate and rhythm, normal peripheral perfusion Respiratory: Lungs CTA, respirations non labored Extremities: no deformity, no trauma Neurological: oriented x 4, LOC appropriate for age speech normal Assessment/Plan 1. Encounter for weight management (Z76.89: Persons encountering health services in other specified circumstances) BMI- 35.35 down from 40.63 Refill of phentermine 37.5 mg one tablet in the AM at this visit OARRS reviewed and found appropriate Medication Agreement renewed today at this visit Continue daily exercise and portion control f/u in 3 months Orders: phentermine, 37.5 mg = 1 tab(s), Oral, Daily, # 30 tab(s), Refills(s) 0, Pharmacy: [facility], 163.5, cm, 10/21/23 7:57:00 EDT, Height/Length Dosing, 94.5, kg, 10/21/23 7:57:00 EDT, Weight Dosing Follow-up With When Contact Information KYARA MORAN CNP, FAM Within [address] [place], [place] [id number] [facility] (1) Additional Instructions: Weight management Problem List/Past Medical History Ongoing Diarrhea Liver enzymes level above reference range Low back pain Mammography abnormal Melanocytic nevus Obesity (BMI 30-39.9) Postablative ovarian failure Sciatica Sprain pelvic ligament Taking high risk medication Historical No qualifying data Procedure/Surgical History Partial hysterectomy (2001), Cholecystectomy (1997), Tonsillectomy (1995), Umbilical hernia (1977). Medications Adipex-P 37.5 mg Tab, 37.5 mg= 1 tab(s), Oral, Daily buPROPion 150 mg ER Tab, 150 mg= 1 tab(s), Oral, Daily calcium (as carbonate) 500 mg oral tablet estradiol 0.5 mg Tab, 0.5 mg= 1 tab(s), Oral, Daily, 1 refills ibuprofen 800 mg Tab, 800 mg= 1 tab(s), Oral, q8hr, PRN, 1 refills loratadine montelukast 10 mg Tab, 10 mg= 1 tab(s), Oral, qPM, 1 refills naproxen 500 mg Tab, 500 mg= 1 tab(s), Oral, BID, PRN valacyclovir 500 mg Tab, 500 mg, Oral, Daily vitamin A Vitamin B12 Vitamin C Vitamin D3 vitamin E Allergies No Known Medication Allergies Social History Alcohol - Denies Alcohol Use, 04/29/2023 Substance Abuse - Denies Substance Abuse, 04/29/2023 Tobacco - Denies Tobacco Use, 04/29/2023 Never (less than 100 in lifetime) Tobacco Use:., 07/22/2023 Family History Hypertension: Mother and Father. Primary malignant neoplasm of brain: Sister. Primary malignant neoplasm of colon: Father. [facility] Comment on above: Result Comment: Elec tronically Signed By: KYARA MORAN CNP\.ellen\Date and Time Signed: 10/21/23 08:26 EDT HIV Ag/Abon 12-08-2022 HIV Ag/Ab Non-Reactive Normal NR [facility] Comment on above: Result Comment: No l aboratory evidence of HIV infection. If acute HIV infection is suspected, consider testing for HIV-1 RNA. Performed By: #### A HCV, HIVCMB, GLYHGB #### [address] [address] [employer] Professor: John Bolton MD #### CP, CBC #### [address] [place] [address] [employer] Professor: Ham Balderrama MD Hemoglobin A1Con 12-07-2022 Glucose [Mass/Vol] 111 mg/dL Normal [facility] Comment on above: Result Comment: The ADA and AACC recommend providing the estimated average glucose result to permit better patient understanding of their HBA1c result. Performed By: #### A HCV, HIVCMB, GLYHGB #### [place] [address] [place] [address] [employer] Professor: John Bolton MD #### CP, CBC #### [address] [place] [address] [employer] Professor: Ham Balderrama MD HbA1c (Bld) [Mass fraction] 5.5 % Normal 4.0-6.0 [facility] Comment on above: Performed By: #### A HCV, HIVCMB, GLYHGB #### [address] [address] [employer] Professor: John Bolton MD #### CP, CBC #### [address] [place] [address] [employer] Professor: Ham Balderrama MD Hep C Abon 8 Hep C Ab Non-Reactive Normal NR [facility] Comment on above: Result Comment: The hepatitis [...] By: #### A HCV, HIVCMB, GLYHGB #### [address] [address] [employer] Professor: John Bolton MD #### CP, CBC #### [address] [place] [address] [employer] Professor: Ham Balderrama MD CBCon 4 Erythrocyte distribution width (RBC) [Ratio] 12.3 % Normal 11.8-14.4 [facility] Comment on above: Performed By: #### A HCV, HIVCMB, GLYHGB #### [address] [address] [employer] Professor: John Bolton MD #### CP, CBC #### [address] [place] [address] [employer] Professor: Ham Balderrama MD Hematocrit (Bld) [Volume fraction] 38.9 % Normal 36.3-47.1 [facility] Comment on above: Performed By: #### A HCV, HIVCMB, GLYHGB #### [address] [address] [employer] Professor: John Bolton MD #### CP, CBC #### [facility] [address] [place] [address] [place] [address] [employer] Professor: Ham Balderrama MD Hemoglobin (Bld) [Mass/Vol] 12.6 g/dL Normal 11.9-15.1 [facility] Comment on above: Performed By: #### A HCV, HIVCMB, GLYHGB #### [address] [address] [employer] Professor: John Bolton MD #### CP, CBC #### [address] [place] [phone] [employer] Professor: Ham Balderrama MD MCH (RBC) [Entitic mass] 30.1 pg Normal 25.2-33.5 [facility] Comment on above: Performed By: #### A HCV, HIVCMB, GLYHGB #### [place] [address] [employer] Professor: John Bolton MD #### CP, CBC #### [address] [place] [id number] [employer] Professor: Ham Balderrama MD MCHC (RBC) [Mass/Vol] 32.4 g/dL Normal 28.4-34.8 [facility] Comment on above: Performed By: #### A HCV, HIVCMB, GLYHGB #### [place] [address] [employer] Professor: John Bolton MD #### CP, CBC #### [address] [place] [phone] [employer] Professor: Ham Balderrama MD MCV (RBC) [Entitic vol] 92.8 fL Normal 82.6-102.9 [facility] Comment on above: Performed By: #### A HCV, HIVCMB, GLYHGB #### [place] [id number] [employer] Professor: John Bolton MD #### CP, CBC #### [address] [place] [phone] [employer] Professor: Ham Balderrama MD NRBC Automated 0.0 per 100 WBC Normal 0.0 [facility] Comment on above: Performed By: #### A HCV, HIVCMB, GLYHGB #### [address] [address] [employer] Professor: John Bolton MD #### CP, CBC #### [address] [place] [phone] [employer] Professor: Ham Balderrama MD Platelet mean volume (Bld) [Entitic vol] 10.2 fL Normal 8.1-13.5 [facility] Comment on above: Performed By: #### A HCV, HIVCMB, GLYHGB #### [address] [address] [employer] Professor: John Bolton MD #### CP, CBC #### [address] [place] [phone] [employer] Professor: Ham Balderrama MD Platelets (Bld) [#/Vol] 282 10*3/uL Normal 138-453 [facility] Comment on above: Performed By: #### A HCV, HIVCMB, GLYHGB #### [address] [address] [employer] Professor: John Bolton MD #### CP, CBC #### [address] [place] [phone] [employer] Professor: Ham Balderrama MD RBC (Bld) [#/Vol] 4.19 10*6/uL Normal 3.95-5.11 [facility] Comment on above: Performed By: #### A HCV, HIVCMB, GLYHGB #### [address] [address] [employer] Professor: John Bolton MD #### CP, CBC #### [address] [place] [phone] [employer] Professor: Ham Balderrama MD WBC (Bld) [#/Vol] 7.0 10*3/uL Normal 3.5-11.3 [facility] Comment on above: Performed By: #### A HCV, HIVCMB, GLYHGB #### [address] [address] [employer] Professor: John Bolton MD #### CP, CBC #### [address] [place], [place] [id number] [employer] Professor: Ham Balderrama MD Comp Metabolic Profon 2022 Albumin [Mass/Vol] 4.5 g/dL Normal 3.5-5.2 [facility] Comment on above: Performed By: #### A HCV, HIVCMB, GLYHGB #### [address] [address] [employer] Professor: John Bolton MD #### CP, CBC #### [address] [place], [place] [id number] [employer] Professor: Ham Balderrama MD Albumin/Glob Ratio 1.7 Normal 1.0-2.5 [facility] Comment on above: Performed By: #### A HCV, HIVCMB, GLYHGB #### [address] [address] [employer] History Professor: John Bolton MD #### CP, CBC #### [address] [place], [place] [id number] [employer] History Professor: Ham Balderrama MD Alkaline Phos 67 U/L Normal 35-104 [facility] Comment on above: Performed By: #### A HCV, HIVCMB, GLYHGB #### [address] [address] Jewish History Professor: John Bolton MD #### CP, CBC #### [facility] [address] [place], [place] [id number] [employer] Professor: Ham Balderrama MD ALT [Catalytic activity/Vol] 13 U/L Normal 5-33 [facility] Comment on above: Performed By: #### A HCV, HIVCMB, GLYHGB #### [address] [address] [employer] History Professor: John Bolton MD #### CP, CBC #### [facility] [address] [place] [address] Dr[place], [place] [phone] [employer] History Professor: Ham Balderrama MD Anion gap [Moles/Vol] 8 mmol/L Low 9-17 [facility] Comment on above: Performed By: #### A HCV, HIVCMB, GLYHGB #### [address] [address] [employer] History Professor: John Bolton MD #### CP, CBC #### [facility] [address] [place] [address] Dr[place], [place] [phone] [employer] History Professor: Ham Balderrama MD AST [Catalytic activity/Vol] 16 U/L Normal <32 [facility] Comment on above: Performed By: #### A HCV, HIVCMB, GLYHGB #### [address] [address] [employer] History Professor: John Bolton MD #### CP, CBC #### [facility] [address] [place] [address] [place], [place] [phone] [employer] Professor: Ham Balderrama MD Bilirubin [Mass/Vol] 0.3 mg/dL Normal 0.3-1.[address] [facility] Comment on above: Performed By: #### A HCV, HIVCMB, GLYHGB #### [address] [address] [employer] History Professor: John Bolton MD #### CP, CBC #### [facility] [address] [place], [place] [phone] [employer] Professor: Ham Balderrama MD BUN/CRE Ratio 18 Normal 9-20 [facility] Comment on above: Performed By: #### A HCV, HIVCMB, GLYHGB #### [address] [address] Jewish History Professor: John Bolton MD #### CP, CBC #### [facility] [address] [place], [place] [phone] [employer] Professor: Ham Balderrama MD Calcium [Mass/Vol] 9.2 mg/dL Normal 8.6-10.4 [facility] Comment on above: Performed By: #### A HCV, HIVCMB, GLYHGB #### [address] [address] [employer] Professor: John Bolton MD #### CP, CBC #### [address] [place], [place] [address] [employer] History Professor: Ham Balderrama MD Chloride [Moles/Vol] 108 mmol/L High 98-[address] [facility] Comment on above: Performed By: #### A HCV, HIVCMB, GLYHGB #### [address] [address] [employer] History Professor: John Bolton MD #### CP, CBC #### [facility] [address] [place] [address] Dr[place], [place] [phone] [employer] Professor: Ham Balderrama MD CO2 [Moles/Vol] 27 mmol/L Normal 20-31 [facility] Comment on above: Performed By: #### A HCV, HIVCMB, GLYHGB #### [address] [address] [employer] History Professor: John Bolton MD #### CP, CBC #### [address] [place], [place] [address] [employer] Professor: Ham Balderrama MD Creatinine [Mass/Vol] 0.8 mg/dL Normal 0.5-0.9 [facility] Comment on above: Performed By: #### A HCV, HIVCMB, GLYHGB #### [address] [address] [employer] Professor: oJhn Bolton MD #### CP, CBC #### [address] [place], [place] 7[address] [employer] Professor: Ham Balderrama MD GFR/1.73 sq M.predicted among non-blacks MDRD (S/P/Bld) [Vol rate/Area] mL/min/{1.73_m2} Normal >60 [facility] Comment on above: Result Comment: These results [...] By: #### A HCV, HIVCMB, GLYHGB #### [address] [address] [employer] History Professor: John Bolton MD #### CP, CBC #### [address] [place], [place] [phone] [employer] History Professor: Ham Balderrama MD Glucose [Mass/Vol] 103 mg/dL High 70-99 [facility] Comment on above: Performed By: #### A HCV, HIVCMB, GLYHGB #### [address] [address] [employer] History Professor: John Bolton MD #### CP, CBC #### [address] [place], [place] [id number] [employer] History Professor: Ham Balderrama MD Potassium [Moles/Vol] 4.5 mmol/L Normal 3.7-5.3 [facility] Comment on above: Performed By: #### A HCV, HIVCMB, GLYHGB #### [address] [address] [employer] History Professor: John Bolton MD #### CP, CBC #### [address] [place], [place] [phone] [employer] Professor: Ham Balderrama MD Protein [Mass/Vol] 7.1 g/dL Normal 6.4-8.3 [facility] Comment on above: Performed By: #### A HCV, HIVCMB, GLYHGB #### [address] [address] [employer] History Professor: John Bolton MD #### CP, CBC #### [address] [place], [place] [phone] [employer] History Professor: Ham Balderrama MD Sodium [Moles/Vol] 143 mmol/L Normal 135-144 [facility] Comment on above: Performed By: #### A HCV, HIVCMB, GLYHGB #### [address] [address] Jewish History Professor: John Bolton MD #### CP, CBC #### [address] [place], [place] [id number] Jewish History Professor: Ham Balderrama MD Urea nitrogen [Mass/Vol] 14 mg/dL Normal 6-20 [facility] Comment on above: Performed By: #### A HCV, HIVCMB, GLYHGB #### [address] [address] Jewish History Professor: John Bolton MD #### CP, CBC #### [address] [place] [address] Jewish History Professor: Ham Balderrama MD Lipid Profileon 12-06-2022 Cholesterol [Mass/Vol] 196 mg/dL Normal <200 [facility] Comment on above: Result Comment: Cholesterol Guidelines: <200 Desirable 200-240 Borderline >240 Undesirable Performed By: #### L IPR #### [address] [address] Jewish History Professor: John Bolton MD Cholesterol in HDL [Mass/Vol] 46 mg/dL Normal >40 [facility] Comment on above: Result Comment: HDL Guidelines: <40 Undesirable 40-59 Borderline >59 Desirable Performed By: #### L IPR #### [address] [address] Jewish History Professor: John Bolton MD Cholesterol in LDL [Mass/Vol] 111 mg/dL Normal 0-130 [facility] Comment on above: Result Comment: LDL Guidelines: <100 Desirable 100-129 Near to/above Desirable 130-159 Borderline >159 Undesirable Direct (measured) LDL and calculated LDL are not interchangeable tests. Performed By: #### L IPR #### [address] [address] Jewish History Professor: John Bolton MD Cholesterol.total/Chol esterol in HDL [Mass ratio] 4.3 {ratio} Normal <5 [facility] Comment on above: Performed By: #### L IPR #### [facility] [employer] [address] [place] [id number] Jewish History Professor: John Bolton MD Triglyceride [Mass/Vol] 197 mg/dL High <150 [facility] Comment on above: Result Comment: Triglyceride Guidelines: <150 Desirable 150-199 Borderline 200-499 High >499 Very high Based on AHA Guidelines for fasting triglyceride, December 2011. Performed By: #### L IPR #### [address] [address] Jewish History Professor: John Bolton MD TSH w/reflex to FT4on 2022 Thyroid Stim. Horm. 3.34 uIU/mL Normal 0.30-5.[address] [facility] Comment on above: Performed By: #### T SHX #### [facility] [address] [place] [address] Jewish History Professor: Ham Balderrama MD DEXA BONE DENSITY AXIAL SKEL Ebervitaly 05-25-2022 DEXA BONE DENSITY AXIAL SKELETON EXAMINATION: BONE DENSITOMETRY 05/25/2022 1:04 pm TECHNIQUE: A bone density dual x-ray absorptiometry (DXA) scan was performed of the lumbar spine and left hip on a [employer] system. COMPARISON: None. HISTORY: ORDERING SYSTEM PROVIDED [...] risk factors. Template code: RPnmNSD_DX_dxa Interpreted by: eGo Patel DO Signed by: Geo Patel DO 05/25/22 Final result Normal [facility] Normal bone mineral density by WHO criteria. [...] have additional risk factors. Template code: RPnmNSD_DX_dxa [facility] EXAMINATION: BONE DENSITOMETRY 05/25/2022 1:04 pm TECHNIQUE: A bone density dual x-ray absorptiometry (DXA) scan was performed of the lumbar spine and left hip on a [employer] system. COMPARISON: None. HISTORY: ORDERING SYSTEM PROVIDED HISTORY: Screening for osteoporosis TECHNOLOGIST PROVIDED HISTORY: Is the patient ?->No Gender: F Age: 47 y/o FINDINGS: LUMBAR SPINE: L1-L4 BMD: 1.095 g/cm2 T-score: -0.7 Z-score: -1.7 LEFT TOTAL HIP: BMD: 1.096 g/cm2 T-score: 0.7 Z-score: 0.2 LEFT FEMORAL NECK: BMD: 1.060 g/cm2 T-score: 0.2 Z-score: 0.1 FRAX: Not Indicated. [facility] Geo Ring DO - 05/25/2022 EXAMINATION: BONE DENSITOMETRY 05/25/2022 1:04 pm TECHNIQUE: A bone density dual x-ray absorptiometry (DXA) scan was performed of the lumbar spine and left hip on a [employer] system. COMPARISON: None. HISTORY: ORDERING SYSTEM PROVIDED [...] have additional risk factors. Template code: RPnmNSD_DX_dxa [facility] [place] Phone: Radiology Study observation (narrative) [facility] [place] Phone: DEXA BONE DENSITY AXIAL SKEL ETONOrdered By: Geo Patel on 05-25-2022 [facility] [employer] Phone: [facility] DIGITAL SCREEN BILA TERALon 05-25-2022 [facility] DIGITAL SCREEN BILATERAL EXAMINATION: [...] to the patient regarding the results. [employer] recommends annual mammograms for women 40 years and older. Interpreted by: Geo Patle DO Signed by: Geo Patel DO 05/25/22 Final result Normal [facility] No mammographic evidence of malignancy BIRADS: BIRADS - CATEGORY 1 Negative. Normal interval follow-up is recommended in 12 months. OVERALL ASSESSMENT - NEGATIVE A letter of notification will be sent to the patient regarding the results. [employer] recommends annual mammograms for women 40 years and older. [facility] EXAMINATION: SCREENING DIGITAL BILATERAL MAMMOGRAM WITH [...] concerning grouping of microcalcification in either breast. [facility] Radiology Study observation (narrative) [facility] Work Phone: [employer] DIGITAL SCREEN BILA TERALOrdered By: Geo Patel on 05-25-2022 [facility] Work Phone: US PELVIS COMPLETE NON-OB TR ANSABDOMINAL [...] Moose Payan MD 04/23/22 Final result Normal [facility] 1. Surgical absence of the uterus, endometrial stripe, and right ovary. 2. Normal appearing left ovarian parenchyma within the left adnexa, without evidence of torsion or mass. 3. No abnormal pelvic mass or fluid collection. [facility] CONSOLIDATED EXAMINATION: TRANSABDOMINAL AND TRANSVAGINAL PELVIC ULTRASOUND [...] pelvic mass or fluid collection is identified. [facility] Moose Hickey MD - 04/23/2022 EXAMINATION: TRANSABDOMINAL AND TRANSVAGINAL [...] No abnormal pelvic mass or fluid collection. [employer] Phone: Radiology Study observation (narrative) [employer] Phone: US PELVIS COMPLETE NON-OB TR ANSABDOMINAL AND TRANSVAGINALOrdered By: Moose Payan on 04-23-2022 [employer] Phone: ALTOrdered By: Carolyn Reed on 10-31-2020 ALT [Catalytic activity/Vol] 12 U/L 5 - 33 U/L [facility] Phone: ASTOrdered By: Carolyn Reed on 10-31-2020 AST [Catalytic activity/Vol] 15 U/L <32 [facility] Phone: Glucose, randomOrdered By: Sunil Reed on 10-31-2020 Glucose [Mass/Vol] 80 mg/dL 70 - 99 mg/dL [facility] Phone: No Panel InformationOrdered By: Carolyn Reed on 10-31-2020 [facility] Phone: [facility] DIGITAL DIAGNOSTIC UNILATERAL LEFTOrdered [...] screening mammogram in 1 year is advised. [facility] Phone: EXAMINATION: DIAGNOSTIC DIGITAL LEFT BREAST MAMMOGRAM [...] on diagnostic workup consistent with summation artifact. [facility] Phone: Greg, Chilo Incoming Radiant Results From [employer] - 07/15/2020 3:04 PM EDT EXAMINATION: DIAGNOSTIC [...] screening mammogram in 1 year is advised. [facility] Phone: CBC Auto Differentialon 12-3 0-2020 Basophils (Bld) [#/Vol] 0.10 10*3/uL [place], [place] Basophils/100 WBC (Bld) 1 % 0 - 2 % [place] Differential Type NOT REPORTED [place] Eosinophils (Bld) [#/Vol] 0.43 10*3/uL [place] Eosinophils/100 WBC (Bld) 6 % High 1 - 4 % [place] Erythrocyte distribution width (RBC) [Ratio] 12.0 % 11.8 - 14.4 % [place] Hematocrit (Bld) [Volume fraction] 39.5 % 36.3 - 47.1 % [place] Hemoglobin (Bld) [Mass/Vol] 12.6 g/dL 11.9 - 15.1 g/dL [place] Immature granulocytes (Bld) [#/Vol] 10*3/uL [place] Immature granulocytes (Bld) [#/Vol] 0 % 0 [place] Interpretation and review of laboratory results Abnormal [place] Lymphocytes (Bld) [#/Vol] 2.31 10*3/uL [place] Lymphocytes/100 WBC (Bld) 33 % 24 - 43 % [place] MCH (RBC) [Entitic mass] 29.9 pg 25.2 - 33.5 pg [place] MCHC (RBC) [Mass/Vol] 31.9 g/dL 28.4 - 34.8 g/dL [place] MCV (RBC) [Entitic vol] 93.8 fL 82.6 - 102.9 fL [place] Monocytes (Bld) [#/Vol] 0.65 10*3/uL [place] Monocytes/100 WBC (Bld) 9 % 3 - 12 % [place] Platelet mean volume (Bld) [Entitic vol] 10.1 fL 8.1 - 13.5 fL [place] Platelets (Bld) [#/Vol] 261 10*3/uL [place] Platelets (Bld) [#/Vol] NOT REPORTED [place] RBC (Bld) [#/Vol] 4.21 10*6/uL 3.95 - 5.1 1 m/uL [place] RBC morphology finding Nom (Bld) NOT REPORTED [place] Segmented neutrophils/100 WBC (Bld) 51 % 36 - 65 % [place] Segs Absolute 3.41 [place] WBC (Bld) [#/Vol] 0.0 10*3/uL 0.0 per 10 0 WBC [place] WBC (Bld) [#/Vol] 6.9 10*3/uL [place] WBC Morphology NOT REPORTED [place] Comprehensive Metabolic Pane sunil 03-23-2020 Albumin [Mass/Vol] 3.9 g/dL 3.5 - 5.2 g/dL [place] Albumin/Globulin [Mass ratio] 1.3 {ratio} [place] ALP [Catalytic activity/Vol] 63 U/L 35 - 104 U/L [place] ALT [Catalytic activity/Vol] 52 U/L High 5 - 33 U/L [place] Anion gap [Moles/Vol] 8 mmol/L Low 9 - 17 mmol/L [place] AST [Catalytic activity/Vol] 39 U/L High <32 [place] Bilirubin Ql (U) 0.32 mg/dL 0.3 - 1.2 mg/dL [place] Bun/Cre Ratio 16 [place] Calcium [Mass/Vol] 9.1 mg/dL 8.6 - 10. 4 mg/dL [place] Chloride [Moles/Vol] 104 mmol/L 98 - 10 7 mmol/L [place] CO2 [Moles/Vol] 26 mmol/L 20 - 31 mmol/L [place] Creatinine [Mass/Vol] 0.67 mg/dL 0.5 - 0.9 mg/dL [place] GFR >60 >60 mL/min [place] GFR Non- >60 >60 mL/min [place] Glucose [Mass/Vol] 96 mg/dL 70 - 99 mg/dL [place] Interpretation and review of laboratory results Abnormal [place] Potassium [Moles/Vol] 4.0 mmol/L 3.7 - 5.3 mmol/L [place] Protein [Mass/Vol] 6.9 g/dL 6.4 - 8.3 g/dL [place] Sodium [Moles/Vol] 138 mmol/L 135 - 144 mmol/L [place] Urea nitrogen [Mass/Vol] 11 mg/dL 6 - 20 mg/dL [place] Estradiolon 03-23-2020 Estradiol 129 pg/mL 27 - 314 pg/mL [place] Comment on above: FEMALES: Normally menstruating Luteal phase 33-298 Follicular phase 27-156 Midcycle phase 48-314 Postmenopausal (untreated) 5-50 Fulvestrant treatment will show an increased estradiol concentration with this methodology. Alternate methodologies are available upon request. Follicle Stimulating Hormone on 03-23-2020 FSH 31.8 U/L High 1.7 - 21.5 U/L [place] Comment on above: Reference Range: Male: 1.5-12.4 Ovulating Female: Follicular Phase 3.5-12.5 Ovulation Phase 4.7-21.5 Luteal Phase 1.7-7.7 Postmenopausal Female: 25.8-134.8 Interpretation and review of laboratory results Abnormal [place] Hemoglobin A1Con 03-23-2020 Glucose [Mass/Vol] 103 mg/dL [place] Comment on above: The ADA and AACC rec ommend providing the estimated average glucose result to permit better patient understanding of their HBA1c result. HbA1c (Bld) [Mass fraction] 5.2 % 4 - 6 % [place] Lipid Panelon 03-23-2020 Cholesterol [Mass/Vol] 159 mg/dL <200 [place] Comment on above: Cholesterol Guidelines: <200 Desirable 200-240 Borderline >240 Undesirable Cholesterol in HDL [Mass/Vol] 50 mg/dL >40 [place] Comment on above: HDL Guidelines: <40 Undesirable 40-59 Borderline >59 Desirable Cholesterol in LDL [Mass/Vol] 88 mg/dL 0 - 130 mg/dL [place] Comment on above: LDL Guidelines: <100 Desirable 100-129 Near to/above Desirable 130-159 Borderline >159 Undesirable Direct (measured) LDL and calculated LDL are not interchangeable tests. Cholesterol in VLDL [Mass/Vol] NOT REPORTED 1 - 30 mg/dL [place] Cholesterol.total/Chol esterol in HDL [Mass ratio] 3.2 {ratio} <5 [place] Triglyceride [Mass/Vol] 103 mg/dL <150 [place] Comment on above: Triglyceride Guidelines: <150 Desirable 150-199 Borderline 200-499 High >499 Very high Based on AHA Guidelines for fasting triglyceride, December 2011. Metabolic Panelon 03-23-2020 GFR/1.73 sq M predicted among non-blacks MDRD (S/P/Bld) [Vol rate/Area] [place] Comment on above: Average GFR for 40-4 9 years old: 99 mL/min/1.73sq m Chronic Kidney Disease: <60 mL/min/1.73sq m Kidney failure: <15 mL/min/1.73sq m eGFR calculated using average adult body mass. Additional eGFR calculator available at: http://www.[employer]/multiple_crcl_2012.htm Stage 1: Some kidney damage normal GFR Stage 2: Mild kidney damage GFR 60-89 Stage 3: Moderate kidney damage GFR 30-59 Stage 4: Severe kidney damage GFR 15-29 Stage 5: Severe kidney damage GFR <15 ESRD - chronic treatment by dialysis or transplant Microscopic Urinalysison Amorphous, UA NOT REPORTED None [place] Bacteria, UA NOT REPORTED None [place] Casts UA NOT REPORTED /LPF [place] Crystals, UA NOT REPORTED None /HPF [place] Epithelial Cells UA 0 TO 2 [place] Mucus, UA NOT REPORTED None [place] Other Observations UA NOT REPORTED NOT REQ. M [place] RBC (U) [#/Vol] None [place] Renal Epithelial, UA NOT REPORTED 0 /HPF [place] Trichomonas, UA NOT REPORTED None [facility] [place] WBC, UA None [place] Yeast, UA NOT REPORTED None [place] - [place] TSH with Reflexon 03-23-2020 TSH Qn 2.02 m[IU]/L [place] Urinalysis Reflex to Culture on 03-23-2020 Bilirubin Urine Negative NEGATIVE [facility] [place] Color, UA YELLOW YELLOW [place] Glucose, Ur Negative NEGATIVE [place] Ketones Ql (U) Negative NEGATIVE [place] Leukocyte esterase Test strip Ql (U) Negative NEGATIVE [place] Nitrite, Urine Negative NEGATIVE [place] pH, UA 7.5 [place] Protein (U) [Mass/Vol] Negative NEGATIVE [place] Specific [place], UA 1.015 [place] Turbidity UA CLEAR CLEAR [place] Urinalysis Comments NOT REPORTED [place] Urine Hgb Negative NEGATIVE [place] Urobilinogen, Urine Normal Normal [place] Hepatitis B Surface Antibody on 01-09-2019 HBV surface Ab (S) [Titer] 3.91 <10 mIU/mL [place] Comment on above: REFERENCE RANGE: <10.0 NON-REACTIVE/NOT IMMUNE >=10.0 REACTIVE/IMMUNE Rubella antibody, IgGon 12-23 Rubella virus IgG Ql (S) 37.4 IU/mL [place] Comment on above: REFERENCE RANGE: <5.0 NON-REACTIVE (non-immune) 5.0 TO 9.9 EQUIVOCAL >=10.0 REACTIVE (immune) Employee Comp Metabolic Pane sunil 08-04-2018 Albumin mass conc 3.8 g/dL Normal 3.2-5.5 [facility] Comment on above: Performed By: #### P ILLAR CBC, PILLAR CMP, PILLAR LIPID, [facility]SH #### [facility] [address] [place] [address] [facility] Albumin/Globulin mass ratio 1.6 {ratio} Normal [facility] Comment on above: Performed By: #### P ILLAR CBC, PILLAR CMP, PILLAR LIPID, [facility] TSH #### [facility] [address] ALP enzyme act/vol 41 U/L Normal 32-92 [facility] Comment on above: Performed By: #### P ILLAR CBC, PILLAR CMP, PILLAR LIPID, PILLAR TSH #### [address] ALT enzyme act/vol 14 U/L Normal 10-60 [facility] Comment on above: Performed By: #### P ILLAR CBC, PILLAR CMP, PILLAR LIPID, PILLAR TSH #### [address] AST enzyme act/vol 17 U/L Normal 10-42 [facility] Comment on above: Performed By: #### P ILLAR CBC, PILLAR CMP, PILLAR LIPID, PILLAR TSH #### [address] Bilirubin mass conc 0.3 mg/dL Normal 0.3-1.2 [facility] Comment on above: Performed By: #### P ILLAR CBC, PILLAR CMP, PILLAR LIPID, PILLAR TSH #### [facility] [address] [place] [address] Calcium mass conc 9.2 mg/dL Normal 8.2-10.2 [facility] Comment on above: Performed By: #### P ILLAR CBC, PILLAR CMP, PILLAR LIPID, PILLAR TSH #### [facility] [address] [place] [address] [place] Chloride molar conc 103 mmol/L Normal 95-114 [facility] Comment on above: Performed By: #### P ILLAR CBC, PILLAR CMP, PILLAR LIPID, PILLAR TSH #### [facility] [address] [place] [address] [place] CO2 molar conc 27.1 mmol/L Normal 22.0-30.0 [facility] Comment on above: Performed By: #### P ILLAR CBC, PILLAR CMP, PILLAR LIPID, PILLAR TSH #### [facility] [address] [place] [address] [place] Creatinine mass conc 0.85 mg/dL Normal 0.44-1.03 [facility] Comment on above: Performed By: #### P ILLAR CBC, PILLAR CMP, PILLAR LIPID, PILLAR TSH #### [facility] [address] [place] [address] Estimated GFR ( Jannet > 60 Normal [facility] Comment on above: Result Comment: GFR estimated reference range: According to KDOQI guidelines, <60 ml/min/1.73m2 is sufficient to diagnose a patient with chronic kidney disease. Performed By: #### P ILLAR CBC, PILLAR CMP, PILLAR LIPID, PILLAR TSH #### [address] Estimated GFR (Non- Am > 60 Normal [facility] Comment on above: Performed By: #### P ILLAR CBC, PILLAR CMP, PILLAR LIPID, PILLAR TSH #### [address] Globulin mass conc (S) 2.4 g/dL Normal [facility] Comment on above: Performed By: #### P ILLAR CBC, PILLAR CMP, PILLAR LIPID, PILLAR TSH #### [address] Glucose mass conc 95 mg/dL Normal 70-100 [facility] Comment on above: Performed By: #### P ILLAR CBC, PILLAR CMP, PILLAR LIPID, PILLAR TSH #### [address] Potassium molar conc 4.1 mmol/L Normal 3.5-5.1 [facility] Comment on above: Performed By: #### P ILLAR CBC, PILLAR CMP, PILLAR LIPID, PILLAR TSH #### [address] Protein mass conc 6.2 g/dL Normal 6.1-7.9 [facility] Comment on above: Performed By: #### P ILLAR CBC, PILLAR CMP, PILLAR LIPID, PILLAR TSH #### [address] Sodium molar conc 140 mmol/L Normal 136-146 [facility] Comment on above: Performed By: #### P ILLAR CBC, PILLAR CMP, PILLAR LIPID, PILLAR TSH #### [facility] [address] [place] [address] Urea nitrogen mass conc 7 mg/dL Low 12-15 [facility] Comment on above: Performed By: #### P ILLAR CBC, PILLAR CMP, PILLAR LIPID, PILLAR TSH #### [facility] [address] [place] [address] Employee Complete Blood Coun ton 08-04-2018 Basophils #/vol (Bld) 0.1 10*3/uL Normal 0.0-0.2 [facility] Comment on above: Result Comment: PERF ORMED BY: [place] [address] PATHOLOGIST HEARING AID REPAIRER INDIA LEMUS M.D. Performed By: #### P ILLAR CBC, PILLAR CMP, PILLAR LIPID, PILLAR TSH #### [address] Basophils/100 WBC (Bld) 1.2 % Normal . [facility] Comment on above: Performed By: #### P ILLAR CBC, PILLAR CMP, PILLAR LIPID, PILLAR TSH #### [address] Eosinophils #/vol (Bld) 0.2 10*3/uL Normal 0.0-0.45 [facility] Comment on above: Performed By: #### P ILLAR CBC, PILLAR CMP, PILLAR LIPID, PILLAR TSH #### [address] Eosinophils/100 WBC (Bld) 3.0 % Normal . [facility] Comment on above: Performed By: #### P ILLAR CBC, PILLAR CMP, PILLAR LIPID, PILLAR TSH #### [address] Erythrocyte distribution width Ratio (RBC) 12.3 % Normal 11.9-15.3 [facility] Comment on above: Performed By: #### P ILLAR CBC, PILLAR CMP, PILLAR LIPID, PILLAR TSH #### [facility] [address] [place] [address] Hematocrit Volume Fraction (Bld) 39.4 % Normal 34.0-46.4 [facility] Comment on above: Performed By: #### P ILLAR CBC, PILLAR CMP, PILLAR LIPID, PILLAR TSH #### [address] Hemoglobin mass conc (Bld) 13.7 g/dL Normal 11.8-15.4 [facility] Comment on above: Performed By: #### P ILLAR CBC, PILLAR CMP, PILLAR LIPID, PILLAR TSH #### [address] Lymphocytes #/vol (Bld) 2.3 10*3/uL Normal 1.00-4.8 [facility] Comment on above: Performed By: #### P ILLAR CBC, PILLAR CMP, PILLAR LIPID, PILLAR TSH #### [address] Lymphocytes/100 WBC (Bld) 31.4 % Normal . [facility] Comment on above: Performed By: #### P ILLAR CBC, PILLAR CMP, PILLAR LIPID, PILLAR TSH #### [address] MCH Entitic mass (RBC) 34.9 g/dL Normal 32.0-35.0 [facility] Comment on above: Performed By: #### P ILLAR CBC, PILLAR CMP, PILLAR LIPID, PILLAR TSH #### [address] MCH Entitic mass (RBC) 30.7 pg Normal 24.7-34.3 [facility] Comment on above: Performed By: #### P ILLAR CBC, PILLAR CMP, PILLAR LIPID, PILLAR TSH #### [address] MCV Entitic volume (RBC) 88.2 fL Normal 80-100 [facility] Comment on above: Performed By: #### P ILLAR CBC, PILLAR CMP, PILLAR LIPID, PILLAR TSH #### [facility] [address] Monocytes #/vol (Bld) 0.7 10*3/uL Normal 0.0-0.8 [facility] Comment on above: Performed By: #### P ILLAR CBC, PILLAR CMP, PILLAR LIPID, PILLAR TSH #### [facility] [address] Monocytes/100 WBC (Bld) 9.1 % Normal . [facility] Comment on above: Performed By: #### P ILLAR CBC, PILLAR CMP, PILLAR LIPID, PILLAR TSH #### [facility] [address] [place] [address] Neutrophils #/vol (Bld) 4.1 10*3/uL Normal 1.8-7.7 [facility] Comment on above: Performed By: #### P ILLAR CBC, PILLAR CMP, PILLAR LIPID, PILLAR TSH #### [facility] [address] [place] [address] Neutrophils/100 WBC (Bld) 55.3 % Normal . [facility] Comment on above: Performed By: #### P ILLAR CBC, PILLAR CMP, PILLAR LIPID, PILLAR TSH #### [facility] [address] [place] [address] Nucleated RBC/100 WBC Ratio (Bld) 0.1 % Normal 0-0.5 [facility] Comment on above: Performed By: #### P ILLAR CBC, PILLAR CMP, PILLAR LIPID, PILLAR TSH #### [facility] [address] [place] [address] Platelet mean volume Entitic volume (Bld) 8.3 fL Normal 6.3-10.7 [facility] Comment on above: Performed By: #### P ILLAR CBC, PILLAR CMP, PILLAR LIPID, PILLAR TSH #### [facility] [address] [place] [address] Platelets #/vol (Bld) 259 10*3/uL Normal 150-450 [facility] Comment on above: Performed By: #### P ILLAR CBC, PILLAR CMP, PILLAR LIPID, PILLAR TSH #### [facility] [address] RBC #/vol (Bld) 4.47 10*6/uL Normal 3.60-5.00 [facility] Comment on above: Performed By: #### P ILLAR CBC, PILLAR CMP, PILLAR LIPID, PILLAR TSH #### [facility] [address] WBC #/vol (Bld) 7.4 10*3/uL Normal 4.5-11.0 [facility] Comment on above: Performed By: #### P ILLAR CBC, PILLAR CMP, PILLAR LIPID, PILLAR TSH #### [facility] [address] Employee Lipid Profileon Cholesterol in HDL mass conc 52 mg/dL Normal 35-85 [facility] Comment on above: Result Comment: HDL CHOL ATP-III CLASSIFICATION Cardiovascular Risk HDL > or equal to 60 mg/dL LOW HDL < 40 mg/dL HIGH Performed By: #### P ILLAR CBC, PILLAR CMP, PILLAR LIPID, PILLAR TSH #### [facility] [address] Cholesterol mass conc 158 mg/dL Normal 140-200 [facility] Comment on above: Result Comment: Chol less than 200 mg/dl low risk Chol 201-239 mg/dl borderline risk Chol 240 mg/dl and greater high risk Performed By: #### P ILLAR CBC, PILLAR CMP, PILLAR LIPID, PILLAR TSH #### [facility] [address] Cholesterol.total/Chol esterol in HDL mass ratio 3.0 {ratio} Normal <5.0 [facility] Comment on above: Performed By: #### P ILLAR CBC, PILLAR CMP, PILLAR LIPID, PILLAR TSH #### [facility] [address] LDL Cholesterol,Calculated 90 mg/dL Normal 0-100 [facility] Comment on above: Result Comment: LDL ATP III CLASSIFICATION LDL less than 100 mg/dL Optimal LDL 100-129 mg/dL Near or above optimal LDL 130-159 mg/dL Borderline high LDL 160-189 mg/dL High LDL greater than 189 mg/dL Very high Performed By: #### P ILLAR CBC, PILLAR CMP, PILLAR LIPID, PILLAR TSH #### [facility] [address] Triglyceride w/Reflex 79 mg/dL Normal 35-149 [facility] Comment on above: Result Comment: TRIG ATP III CLASSIFICATION TRIG less than 150 mg/dL Normal TRIG 150-199 mg/dL Borderline high TRIG 200-500 mg/dL High TRIG greater than 500 mg/dL Very high Standard traceable to the Center for Disease Conrtrol and Prevention (CDC) test method. Performed By: #### P ILLAR CBC, PILLAR CMP, PILLAR LIPID, PILLAR TSH #### [facility] [address] VLDL CHOLESTEROL 15 mg/dL Normal [facility] Comment on above: Performed By: #### P ILLAR CBC, PILLAR CMP, PILLAR LIPID, PILLAR TSH #### [facility] [address] Employee Thyroid [employer] Hormon liz 08-04-2018 Employee Thyroid Stim Hormone 2.33 u[iU]/mL Normal 0.45-5.33 [facility] Comment on above: Result Comment: PERF ORMED BY: [place] [address] PATHOLOGIST HEARING AID REPAIRER INDIA LEMUS M.D. Performed By: #### P ILLAR CBC, PILLAR CMP, PILLAR LIPID, PILLAR TSH #### [facility] [address] Vital Signs Date Time Vital Sign Value Performing Clinician Shilpa de la rosa 05-16-2023 14:22-0500 Body height 162.56 cm [facility] 04-04-2023 14:00-0500 Body height 162.56 cm [facility] 04-04-2023 14:00-0500 Body weight 109.76 kg [facility] 09-01-2019 09:37-0400 BMI (Body Mass Index) 34.33 kg/m2 Jonny Shannon Hickman [facility], BLESSING 09-01-2019 09:37-0400 Body Temperature 97.9 [degF] Jonny Shannon Hickman [facility] , BLESSING 09-01-2019 09:37-0400 Body weight 90.72 kg Jonny Shannon [facility] , [place] 09-01-2019 09:37-0400 BP Diastolic 85 mm[Hg] [facility] [place] 09-01-2019 09:37-0400 BP Systolic 141 mm[Hg] [facility] [place] 09-01-2019 09:37-0400 Height 162.6 cm Jonny Shannon [facility] , [place] 09-01-2019 09:37-0400 Pulse (Heart Rate) 68 /min Jonny Shannon [facility] 09-01-2019 09:37-0400 Pulse Oximetry 98 % Jonny Shannon [facility] [place] 09-01-2019 09:37-0400 Respiratory Rate 18 /min Jonny Shannon [facility], [place] Encounters Encounter Date Encounter Type Care Provider Facility Start: 01-18-2025 ambulatory KYARA A LUISA Facili ty:[facility] Start: 12-07-2024 ambulatory Rosanna L Jared Facility: [facility] Start: 10-20-2024 End: 10-20-2024 ambulatory KYARA A LUISA Facility:[facility] Start: 10-12-2024 End: 10-12-2024 ambulatory CONCEPT ARTIST KYARA A LUISA Facility[facility] Start: 09-16-2024 End: 09-16-2024 Lab Drop off Rosanna L Jared [facility] Start: 09-16-2024 End: 09-16-2024 ambulatory Rosanna L Jared Facility:[facility] Start: 07-15-2024 End: 07-15-2024 ambulatory CONCEPT ARTIST KYARA A LUISA Facility:[facility] Start: 04-20-2024 End: 04-20-2024 ambulatory CONCEPT ARTIST KYARA A LUISA Facility:[facility] Start: 01-20-2024 End: 01-20-2024 ambulatory CONCEPT ARTIST KYARA A LUISA Facility:[facility] Start: 2024 End: 2024 ambulatory Rosanna L Jared Facility:[facility] Start: 11-22-2023 End: 11-22-2023 ambulatory CONCEPT ARTIST KYARA A LUISA Facility:[facility] Start: 10-21-2023 End: 10-21-2023 ambulatory CONCEPT ARTIST KYARA A LUISA Facility:[facility] Start: 05-16-2023 End: 05-16-2023 ambulatory [facility] Work Phone: Start: 05-16-2023 End: 05-16-2023 Patient encounter procedure [facility] Work Phone: Start: 04-10-2023 End: 04-10-2023 ambulatory Kamla Maier Other [facility] [employer] [facility] Other Start: 04-10-2023 Telephone encounter Kamla Maier [facility] Start: 04-04-2023 End: 04-04-2023 Patient encounter procedure [facility] Work Phone: Start: 12-06-2022 End: 12-07-2022 ambulatory CAROLYN REED [facility] Start: 12-06-2022 Encounter for genera l adult medical examination without abnormal findings [facility] Start: 05-25-2022 End: 05-28-2022 ambulatory SHARRON ALCANTARA [facility] Start: 05-25-2022 End: 05-27-2022 Subsequent hospital visit by physician Mook Jones [facility] Mammography Comment on above: Screening for osteop orosis; Premature surgical menopause Breast cancer screen ing by mammogram Start: 04-23-2022 End: 04-26-2022 ambulatory SHARRON ALCANTARA [facility] Start: 04-23-2022 End: 04-25-2022 Subsequent hospital visit by physician [facility] Ul[facility]ound Room [facility] Ultrasound Comment on above: Pain in female pelvi s Start: 10-10-2021 End: 10-10-2021 Subsequent hospital visit by physician Carolyn Reed APRN - CONCEPT ARTIST Work Phone: [facility] Laboratory Comment on above: Atypical mole Start: 09-21-2021 End: 09-21-2021 Subsequent hospital visit by physician Vahe Jung PT [facility] Physical Therapy Comment on above: Arrived Start: 10-31-2020 End: 10-31-2020 Subsequent hospital visit by physician Carolyn Reed APRN - CONCEPT ARTIST Work Phone: [facility] Laboratory Comment on above: High risk medication use; Elevated liver enzymes Start: 07-15-2020 End: 07-17-2020 Subsequent hospital visit by physician [facility] Ultrasound Room [facility] Ultrasound Comment on above: Abnormality of left breast on screening mammogram Start: 03-23-2020 End: 03-23-2020 Subsequent hospital visit by physician Carolyn Reed [facility] Laboratory Comment on above: Obesity (BMI 35.0-39 .9 without comorbidity); Chronic left lower quadrant pain; Screening cholesterol level Wellness examination Start: 02-25-2020 End: 02-25-2020 Subsequent hospital visit [facility] Comment on above: Women's annual routi ne gynecological examination Start: 09-01-2019 End: 09-01-2019 Emergency department patient visit Jonny Ortega Work Phone: [facility] Comment on above: Sciatica of right si de (Primary Dx) Start: 07-23-2019 End: 07-23-2019 Subsequent hospital visit by physician Juan Dorman [facility] Laboratory Start: 01-09-2019 End: 01-09-2019 Subsequent hospital visit by physician [facility] Start: 10-14-2018 End: 10-14-2018 Patient encounter procedure HANK PAY Facility:H1 Procedures Date Procedure Procedure Detail Performing Clinician Start: 05-25-2022 Dxa bone density chad dy 1/> sites axial veneciael Sharron Alcantara ENTRY CLERK - CONCEPT ARTIST Work Phone: Start: 05-25-2022 Screening mammograph y bi 2-view breast inc cad Sharron Alcantara ENTRY CLERK - CONCEPT ARTIST Work Phone: Start: 04-23-2022 Us transvaginal Sharron Marcela hassan ENTRY CLERK - CONCEPT ARTIST Work Phone: Start: 10-31-2020 Glucose quantitative blood xcpt reagent strip Carolyn Reed ENTRY CLERK - CONCEPT ARTIST Work Phone: Start: 07-15-2020 Diagnostic mammograp hy computer-aided detcj uni Zeeshan Shaw MD Work Phone: Start: 03-23-2020 Urinalysis microscopic only Zeeshan Shaw Work Phone: Start: 03-23-2020 Urnls dip stick/tabl et rgnt auto w/o microscopy Zeeshan Shaw Work Phone: Start: 03-23-2020 Assay of estradiol Lisa Shaw Work Phone: Start: 03-23-2020 Assay of thyroid sti mulating hormone tsh Zeeshan Shaw Work Phone: Start: [...] Hepatitis b surf ant ibody hbsab Janette [employer] Work Phone: Start: 01-09-2019 Immunoassay infectio us agent antibody mani nos Janette [employer] Work Phone: Start: 03-25-2001 Partial hysterectomy Oumou di Jared Start: 03-25-1997 Cholecystectomy Rosanna Sc hw Start: 03-25-1995 Tonsillectomy Rosanna Barreto ab Start: 03-25-1977 Umbilical hernia (disorder) Rosanna Coleman Plan of Treatment Date Care Activity Detail Author Start: 12-05-2026 Lipid panel Lipids [facility] Start: 12-06-2025 Lipid panel Lipids [facility] Start: 03-23-2025 Lipid panel Lipid screen [facility] [place] Start: 10-15-2024 Lipid panel Lipid screen [place], [place] Start: 05-16-2023 Patient referral [facility] Work Phone: Start: 02-24-2023 Screening for malign ant neoplasm of cervix Cervical cancer screen [place], [place] Start: 06-14-2022 End: 06-14-2022 Patient encounter procedure 06/14/2022 Office Visit Obstetrics and Gynecology Zeeshan Shaw MD [address] [place] [address] [facility] Start: 05-25-2022 End: 05-25-2022 Patient encounter procedure 05/25/2022 Appointment Radiology [facility] Start: 05-14-2022 End: 05-14-2022 Patient encounter procedure 05/14/2022 Office Visit Obstetrics and Gynecology Zeeshan Shaw MD [address] [place] [address] [facility] Start: 04-12-2022 Depression Monitoring Depression Mon edith [facility] Start: 11-23-2021 Influenza vaccination [facility] Start: 10-26-2021 End: 10-26-2021 Patient encounter procedure 10/26/2021 Office Visit Primary Care Carolyn Reed, ENTRY CLERK - CONCEPT ARTIST [address] [place] [address] [facility] Start: 10-23-2021 Influenza vaccination Flu vaccine (# 1) [facility] Start: 10-10-2021 End: 10-10-2021 Patient encounter procedure 10/10/2021 Procedure visit Primary Care Carolyn Reed, ENTRY CLERK - CONCEPT ARTIST [address] [place] [address] [facility] Start: 09-29-2021 End: 09-29-2021 Patient encounter procedure 09/29/2021 Appointment Physical Therapy Roger Allen, PT [facility] Start: 01-13-2021 End: 01-13-2021 Office Visit 01/13/2021 Office Visit Family Medicine Carolyn Reed, ENTRY CLERK - CONCEPT ARTIST [address] [place] [address] [phone] [facility] Start: 11-23-2020 Influenza vaccination [facility] Work Phone: Start: 04-15-2020 End: 04-15-2020 Office Visit 04/15/2020 Office Visit Obstetrics and Gynecology Zeeshan Shaw MD [address] [place] [address] [phone] [facility] Start: 01-02-2020 Screening for malign ant neoplasm of colon [facility] Start: 11-24-2019 Influenza vaccination [place], [place] Start: 09-21-2019 End: 09-21-2019 Appointment 09/21/2019 Appointment Radiology [facility] Start: 2015 Diabetes screen Diabetes screen [place], [place] Start: 2015 Lipid panel Lipid screen [place], [place] Start: 01-02-1996 Screening for malign ant neoplasm of cervix Cervical cancer screen [place], [place] Start: 1994 DTaP/Tdap/Td vaccine (1 - Tdap) DTaP/Tdap/Td vaccine (1 - Tdap) [facility] [employer] Start: 1993 Hepatitis C screening Hepatitis C sc reen [facility] Start: 1991 COVID-19 Vaccine (1) COVID-19 Vaccin e (1) [facility] [employer] Phone: Start: 1990 HIV screening HIV screen [facility] [employer] Start: 1987 COVID-19 Vaccine (1) COVID-19 Vaccin e (1) [facility] [employer] Phone: Start: 01-02-1980 COVID-19 Vaccine (1) COVID-19 Vaccin e (1) [facility] [employer] Start: 1975 COVID-19 Vaccine (#1) COVID-19 Vacci ne (#1) [facility] Start: 1975 Hepatitis C screening [facility] [place] [place] End: 07-23-2019 Covid-19 Ambulatory Covid-19 Ambulatory Lab Routine Once for 1 Occurrences starting 07/23/2019 until 07/23/2019 [place] Comment on above: Once for 1 Occurrenc es starting 07/23/2019 until 07/23/2019 Covid-19 Ambulatory Covid-19 Amb ulatory Lab Routine 07/23/2019 3:29 PM EDT [place] End: 02-25-2020 Cytopathology procedure, preparation of smear, genital source PAP SMEAR Lab Routine Women's annual routine gynecological examination 1 Occurrences starting 02/25/2020 until 02/25/2020 [place] Comment on above: 1 Occurrences starti ng 02/25/2020 until 02/25/2020 End: 10-10-2021 Dermatology Pathology Dermatology Pathology Lab Routine Once for 1 Occurrences starting 10/10/2021 until 10/10/2021 [facility] [employer] Phone: Comment on above: Once for 1 Occurrenc es starting 10/10/2021 until 10/10/2021 End: 10-31-2020 Glucose [Mass/volume] in Serum or Plasma Glucose Lab Routine High risk medication use 1 Occurrences starting 10/31/2020 until 10/31/2020 [employer] Phone: Comment on above: 1 Occurrences starti ng 10/31/2020 until 10/31/2020 End: 01-09-2019 Mumps Antibody, IgG Mumps Antibody, IgG Lab Routine Once for 1 Occurrences starting 01/09/2019 until 01/09/2019 [facility] [employer] Comment on above: Once for 1 Occurrenc es starting 01/09/2019 until 01/09/2019 Mumps Antibody, IgG Mumps Antibo dy, IgG Lab Routine 01/09/2019 8:59 AM EDT [employer] [facility] [place] Patient referral [facility] Work Phone: End: 01-09-2019 Rubeola Antibody, IgG Rubeola Antibody, IgG Lab Routine Once for 1 Occurrences starting 01/09/2019 until 01/09/2019 [facility] [employer] [place], [place] Comment on above: Once for 1 Occurrenc es starting 01/09/2019 until 01/09/2019 Rubeola Antibody, IgG Rubeola An tibody, IgG Lab Routine 01/09/2019 8:59 AM EDT [employer] [facility] [employer] [place] End: 10-10-2021 Surgical Pathology Surgical Pathology Lab Routine Atypical mole 1 Occurrences starting 10/10/2021 until 10/10/2021 [employer] Phone: Comment on above: 1 Occurrences starti ng 10/10/2021 until 10/10/2021 End: 07-15-2020 US BREASt COMPLETE LEFT US BREASt COMPLETE LEFT Imaging Routine Abnormality of left breast on screening mammogram 1 Occurrences starting 07/15/2020 until 07/15/2020 [employer] Phone: Comment on above: 1 Occurrences starti ng 07/15/2020 until 07/15/2020 End: 01-09-2019 Varicella Zoster Antibody, IgG Varicella Zoster Antibody, IgG Lab Routine Once for 1 Occurrences starting 01/09/2019 until 01/09/2019 [facility] [employer] [place], [employer] Comment on above: Once for 1 Occurrenc es starting 01/09/2019 until 01/09/2019 Varicella Zoster Antibody, IgG Varicella Zoster Antibody, IgG Lab Routine 01/09/2019 8:[place] Payers Date Payer Category Payer Private Health Insurance [id number] 2023 Private Health Insurance [id number] 2021 Unknown [id number] 2019 Unknown [id number] .[id number] 2019 Unknown HB SPECIALTY STEPHENIE LING [facility] 2019-Present Indemnity [id number] 2014 Unknown [employer] [facility] [employer] PL[employer] EMP xxxxxxxxxxxx 2014-Present [phone] [address] [place] [address] xxxxxxxxxxxx [id number] .[id number] 1975 Unknown [id number] 2.16.840.1.959057.3.579.2 .593 1975 Unknown [id number] 2.16.840.1.708223.3.579.2 .173 1975 Unknown [id number] 2.16.840.1.162697.3.579.2 .173 1975 Unknown [id number] 2.16.840.1.603981.3.579.2 .173 1975 Unknown [id number] 2.16.840.1.116248.3.579.2 .173 1975 Unknown [id number] 2.16.840.1.781116.3.579.2 .727 1975 Unknown [id number] 2.16.840.1.544796.3.579.2 .727 1975 Unknown [id number] 2.16.840.1.064540.3.579.2 .727 1975 Unknown [id number] 2.16.840.1.495874.3.579.2 .727 1975 Unknown [id number] 2.16.840.1.334708.3.579.2 .7 1975 Unknown [id number] 2.16.840.1.966506.3.579.2 .727 1975 Unknown [id number] 2.16.840.1.015033.3.579.2 .1975 Unknown [id number] 2.16.840.1.386976.3.579.2 .1975 Unknown [id number] 2.16.840.1.266056.3.579.2 .72 1975 Unknown [id number] 2.16.840.1.470855.3.579.2 .7 1975 Unknown [id number] 2.16.840.1.869666.3.579.2 .7 1975 Unknown [id number] 2.16.840.1.021562.3.579.2 .1975 Unknown [id number] 2.16.840.1.184315.3.579.2 .727 1959 Unknown [id number] .[id number] .[id number] Private Health Insurance [employer] [id number] Self-pay Self Pay [id number] Unknown Unknown [id number] 2.16.840.1.351956.19 Unknown O [id number] Social History Date Type Detail Facility Tobacco smoking stat us NEIS Unknown if ever smoked [employer] [facility] Start: 1975 Sex Assigned At Not on file M BLESSING [facility] Start: 02-25-2020 End: 07-15-2024 Tobacco smoking status NHIS Never smoker [facility]ESS[facility] Start: 02-25-2020 End: 05-14-2022 Tobacco use and exposure Never used [facility], [facility]ESS[facility] Start: 02-25-2020 End: 05-14-2022 Alcohol intake Ex-drinker (finding) [employer] [facility] Y Start: 01-13-2020 End: 09-12-2021 History SDOH Financial 5 [employer] [facility] Start: 01-13-2020 End: 09-12-2021 History SDOH Food Worry 1 [employer] [facility] Start: 01-13-2020 History SDOH Transpo rt Med 2 [facility] BLESSING Exposure to SARS-CoV -2 (event) [facility] to assess [facility] Exposure to SARS-CoV -2 (event) Not sure [facility] Start: 1975 Sex Assigned At Female [facility] [employer] Sex Assigned At [facility] Tobacco smoking status Never [facility] [place] Sexual Orientation [facility] Start: 07-06-2009 Sex Female (finding) [facility] Clinical Notes 09-21-2021 to 10-20-2024 Vahe Jung, PT - 09/21/2021 9:15 AM EDT Note Date & Type Note Facility 10-20-2024 Note Patient Education Urology Dysuria Dysuria is pain or discomfort during urination. The pain or discomfort may be felt in the part of the body that drains urine from the bladder (urethra) or in the surrounding tissue of the genitals. The pain may also be felt in the groin area, lower abdomen, or lower back. You may have to urinate frequently or have the sudden feeling that you have to urinate (urgency). Dysuria can affect anyone, but it is more common in females. Dysuria can be caused by many different things, including: ??? Urinary tract infection. ??? Kidney stones or bladder stones. ??? Certain STIs (sexually transmitted infections), such as chlamydia. ??? Dehydration. ??? Inflammation of the tissues of the vagina. ??? Use of certain medicines. ??? Use of certain soaps or scented products that cause irritation. Follow these instructions at home: Medicines ??? Take tibj-cvp-vafqewk and prescription medicines only as told by your health care provider. ??? If you were prescribed an antibiotic medicine, take it as told by your health care provider. Do not stop taking the antibiotic even if you start to feel better. Eating and drinking ??? Drink enough fluid to keep your urine pale yellow. ??? Avoid caffeinated beverages, tea, and alcohol. These beverages can irritate the bladder and make dysuria worse. In males, alcohol may irritate the prostate. General instructions ??? Watch your condition for any changes. ??? Urinate often. Avoid holding urine for long periods of time. ??? If you are female, you should wipe from front to back after urinating or having a bowel movement. Use each piece of toilet paper only once. ??? Empty your bladder after sex. ??? Keep all follow-up visits. This is important. ??? If you had any tests done to find the cause of dysuria, it is up to you to get your test results. Ask your health care provider, or the department that is doing the test, when your results will be ready. Contact a health care provider if: ??? You have a fever. ??? You develop pain in your back or sides. ??? You have nausea or vomiting. ??? You have blood in your urine. ??? You are not urinating as often as you usually do. Get help right away if: ??? Your pain is severe and not relieved with medicines. ??? You cannot eat or drink without vomiting. ??? You are confused. ??? You have a rapid heartbeat while resting. ??? You have shaking or chills. ??? You feel extremely weak. Summary ??? Dysuria is pain or discomfort while urinating. Many different conditions can lead to dysuria. ??? If you have dysuria, you may have to urinate frequently or have the sudden feeling that you have to urinate (urgency). ??? Watch your condition for any changes. Keep all follow-up visits. ??? Make sure that you urinate often and drink enough fluid to keep your urine pale yellow. This information is not intended to replace advice given to you by your health care provider. Make sure you discuss any questions you have with your health care provider. Document Revised: 10/21/2020 Document Reviewed: 10/21/2020 [employer] Patient Education ? 2023 [place] 07-15-2024 Note Patient Education Nutrition Diet and Dental Disease What you eat affects the health of your teeth. In addition to good oral hygiene, choosing the right foods can help to keep your teeth healthy and free from dental problems such as tooth decay and gum disease. It is important to know which foods can help to keep your teeth strong and which foods can cause problems for your teeth. If you do not get the proper nutrients in your diet, your body may be less able to prevent dental disease. What general guidelines do I need to follow? Food guidelines ??? Eat a healthy, well-balanced diet that includes a variety of foods. Your diet should include: ? Fiber-rich fruits and vegetables. ? Lean sources of protein. These include eggs, lean meat, chicken, fish, and low-fat or fat-free dairy products. ? Whole grains. These include brown rice, whole-wheat bread, and pasta. ? Fresh, whole, and unprocessed foods. These foods help you produce more saliva, which is important for good dental health. ??? Try to wait at least 2 hours between meals, snacks, and drinks. ??? Avoid foods that contain high amounts of sugar, such as candies, cakes, cookies, and syrups. Eating these foods often over a long period can increase your risk of developing cavities (dental caries). ??? Avoid eating sticky or acidic foods by themselves, such as caramel, dried fruit, jams, or citrus fruits. If you eat these types of foods, eat them with meals rather than between meals. ??? Rinse your mouth with water after eating sugary snacks. ??? Wells and floss your teeth after meals and snacks if possible. ??? Chew sugar-free gum right after a meal or snack if you cannot brush your teeth. Beverage guidelines ??? Avoid sipping drinks that are sweetened with sugar, such as soda. Sipping these drinks for prolonged periods can increase your risk of cavities. ??? Avoid holding or swishing acidic or sugary drinks in your mouth. ??? Keep yourself hydrated by drinking adequate amounts of water. Drink enough fluid to keep your urine pale yellow. Recommended foods ??? Foods that are high in vitamins C and A, such as fresh fruits and vegetables. These vitamins are important for keeping gums healthy and for building tooth enamel. ??? High-quality protein foods. These include lean meats, eggs, cheese, milk, yogurt, fish, beans, and legumes. ??? Whole-grain breads and cereals that are low in sugar. ??? Foods that are good sources of calcium. These include cheese, milk, plain yogurt, calcium-fortified tofu, leafy greens, and almonds. ??? Water, especially fluoridated water. ??? Sugar-free chewing gum and sugar-free mints. The items listed above may not be a complete list of recommended foods and beverages. Contact a dietitian for more options. Foods to avoid ??? Any food or drink that contains sugar or is sweetened with sugar. These should only be consumed in moderation. This list includes fruit drinks, carbonated beverages, sport or energy drinks, as well as sweetened coffees and teas. ??? Sticky foods. These include raisins and other dried fruits, and candies that are sticky, hard, or slow to melt. ??? Foods that are high in refined carbohydrates or higher in sugar. These include cookies, cakes, muffins, chips, and crackers. ??? Acidic foods and drinks. These include tomatoes, citrus fruits, coffee, and fruit juice. These foods and drinks can weaken tooth enamel, which can cause tooth sensitivity, erosion, and pitting. The items listed above may not be a complete list of foods and beverages to avoid. Contact a dietitian for more information. Summary ??? Choosing the right foods can help to keep your teeth healthy and free from dental problems such as tooth decay and gum disease. ??? Recommended foods include fresh fruits and vegetables, high-quality protein, whole-grain breads and cereals, and foods that are high in calcium. ??? Avoid foods or drinks that are high in refined carbohydrates or sugar. Avoid acidic foods and drinks. This information is not intended to replace advice given to you by your health care provider. Make sure you discuss any questions you have with your health care provider. Document Revised: 02/13/2022 Document Reviewed: 02/13/2022 [employer] Patient Education ? 2023 [place] [facility] 04-20-2024 Note Patient Education Gastroenterology Obesity, Adult Obesity is having too much body fat. Being obese means that your weight is more than what is healthy for you. BMI (body mass index) is a number that explains how much body fat you have. If you have a BMI of 30 or more, you are obese. Obesity can cause serious health problems, such as: ??? Stroke. ??? Coronary artery disease (CAD). ??? Type 2 diabetes. ??? Some types of cancer. ??? High blood pressure (hypertension). ??? High cholesterol. ??? Gallbladder stones. Obesity can also contribute to: ??? Osteoarthritis. ??? Sleep apnea. ??? Infertility problems. What are the causes? Eating meals each day that are high in calories, sugar, and fat. ??? Drinking a lot of drinks that have sugar in them. ??? Being born with genes that may make you more likely to become obese. ??? Having a medical condition that causes obesity. ??? Taking certain medicines. ??? Sitting a lot (having a sedentary lifestyle). ??? Not getting enough sleep. What increases the risk? Having a family history of obesity. ??? Living in an area with limited access to: ? [place], recreation centers, or sidewalks. ? Healthy food choices, such as grocery stores and zlien markets. What are the signs or symptoms? The main sign is having too much body fat. How is this treated? Treatment for this condition often includes changing your lifestyle. Treatment may include: ??? Changing your diet. This may include making a healthy meal plan. ??? Exercise. This may include activity that causes your heart to beat faster (aerobic exercise) and strength training. Work with your doctor to design a program that works for you. ??? Medicine to help you lose weight. This may be used if you are not able to lose one pound a week after 6 weeks of healthy eating and more exercise. ??? Treating conditions that cause the obesity. ??? Surgery. Options may include gastric banding and gastric bypass. This may be done if: ? Other treatments have not helped to improve your condition. ? You have a BMI of 40 or higher. ? You have life-threatening health problems related to obesity. Follow these instructions at home: Eating and drinking ??? Follow advice from your doctor about what to eat and drink. Your doctor may tell you to: ? Limit fast food, sweets, and processed snack foods. ? Choose low-fat options. For example, choose low-fat milk instead of whole milk. ? Eat five or more servings of fruits or vegetables each day. ? Eat at home more often. This gives you more control over what you eat. ? Choose healthy foods when you eat out. ? Learn to read food labels. This will help you learn how much food is in one serving. ? Keep low-fat snacks available. ? Avoid drinks that have a lot of sugar in them. These include soda, fruit juice, iced tea with sugar, and flavored milk. ??? Drink enough water to keep your pee (urine) pale yellow. ??? Do not go on fad diets. Physical activity ??? Exercise often, as told by your doctor. Most adults should get up to 150 minutes of moderate-intensity exercise every week.Ask your doctor: ? What types of exercise are safe for you. ? How often you should exercise. ??? Warm up and stretch before being active. ??? Do slow stretching after being active (cool down). ??? Rest between times of being active. Lifestyle ??? Work with your doctor and a food expert (dietitian) to set a weight-loss goal that is best for you. ??? Limit your screen time. ??? Find ways to reward yourself that do not involve food. ??? Do not drink alcohol if: ? Your doctor tells you not to drink. ? You are , may be , or are planning to become . ??? If you drink alcohol: ? Limit how much you have to: ? 0?1 drink a day for women. ? 0?2 drinks a day for men. ? Know how much alcohol is in your drink. In the [place] one drink equals one 12 oz bottle of beer (355 mL), one 5 oz glass of wine (148 mL), or one 1? oz glass of hard liquor (44 mL). General instructions ??? Keep a weight-loss journal. This can help you keep track of: ? The food that you eat. ? How much exercise you get. ??? Take xszt-bme-higtxqc and prescription medicines only as told by your doctor. ??? Take vitamins and supplements only as told by your doctor. ??? Think about joining a support group. ??? Pay attention to your mental health as obesity can lead to depression or self esteem issues. ??? Keep all follow-up visits. Contact a doctor if: ??? You cannot meet your weight-loss goal after you have changed your diet and lifestyle for 6 weeks. ??? You are having trouble breathing. Summary ??? Obesity is having too much body fat. ??? Being obese means that your weight is more than what is healthy for you. ??? Work with your doctor to set a weight-loss goal. ??? Get regular exercise as told by your doctor. This information is not intend (more content not included)... [facility] 11-22-2023 Note Patient Education Dermatology Hand or Foot Foreign Body, Adult A foreign body is an object that gets into your body that should not be there. The hands and feet are common entry points for foreign bodies. Common examples of foreign bodies include: ? Wood splinters. ? Thorns. ? Pieces of glass, wood, metal, or plastic. ? Metal objects such as needles, nails, and fishing hooks. ? Pencil lead. Foreign bodies that are not removed quickly may cause infection. What are the causes? A foreign body can get in your hand or foot through an injury, such as a scrape or cut, or if something punctures your skin. What increases the risk? If you work with or around broken glass, wood, fiberglass, or stone you are at a higher risk of getting a foreign body in a hand or foot. Going barefoot also increases your risk of getting a foreign body in a hand or foot. What are the signs or symptoms? Symptoms of having recently gotten a foreign body in your hand or foot include: ? Pain. ? Redness. ? Swelling. ? Tenderness. ? Numbness or tingling. ? Noticing something under the skin. If the foreign body has caused an infection, symptoms may also include: ? Fever. ? Warmth in the area of the puncture. ? A lump that you can feel under the skin. ? Not being able to use your hand or put weight (bear weight) on your foot. ? Greenish or yellow fluid coming from the puncture area. How is this diagnosed? Your health care provider will diagnose a foreign body in the hand or foot based on your symptoms, history, and examining your wound. If the foreign body is deep, you may also have tests, such as an X-ray, MRI, or ultrasound. How is this treated? Your health care provider may be able to remove the foreign body while exploring your wound during the diagnosis. If the foreign body is deep or in a wound that is infected, you may need to have a procedure to remove the foreign body. If an incision is needed, it may be closed with stitches (sutures), skin glue, or adhesive strips. A bandage (dressing) will be placed over the incision. You may also need to get a tetanus shot or take antibiotic medicines to prevent or treat an infection. Follow these instructions at home: Medicines ? Take dgdw-txb-kgxlarm and prescription medicines only as told by your health care provider. ? If you were prescribed an antibiotic medicine, take the antibiotic as told by your health care provider. Do not stop taking the antibiotic even if you start to feel better. Wound care ? Follow instructions from your health care provider about how to take care of your wound or incision. Make sure you: ? Wash your hands with soap and water at least 20 seconds before and after you change your dressing. If soap and water are not available, use hand social work program coordinator. ? Change your dressing as told by your health care provider. ? Leave sutures, skin glue, or adhesive strips in place. These skin closures may need to stay in place for 2 weeks or longer. If adhesive strip edges start to loosen and curl up, you may trim the loose edges. Do not remove adhesive strips completely unless your health care provider tells you to do that. ? Check your wound or incision area every day for signs of infection. Check for: ? More redness, swelling, or pain. ? More fluid or blood. ? Warmth. ? Pus or a bad smell. General instructions ? Return to your normal activities as told by your health care provider. Ask your health care provider what activities are safe for you. ? Do not take baths, swim, or use a hot tub until your health care provider approves. Ask your health care provider if you may take showers. You may only be allowed to take sponge baths. ? Keep all follow-up visits. This is important. How is this prevented? To protect yourself: ? Wear gloves when working with sharp objects or wood. ? Do not walk barefoot in areas where there may be sharp objects. ? Wear thick-soled shoes or boots when walking in areas where there are sharp objects. Contact a health care provider if: ? You have a foreign body that has not come out or been removed. ? You have more redness, swelling, or pain around the wound or incision area. ? You have more fluid or blood coming from the wound or incision area. ? Your wound or incision area feels warm to the touch. ? You have pus or a bad smell coming from the wound or incision area. ? You have a fever. ? You were given a tetanus shot, and you have swelling, severe pain, redness, or bleeding at the injection site. Get help right away if: ? Your wound or incision area becomes numb. ? You cannot use your hand or foot. Summary ? A foreign body is an object that gets into your body that should not be there. Your hands and feet are common entry points for foreign bodies. ? Your health care provider may be able to remove the foreign body while exploring your wound during the diagnosis. If the foreign body is deep or (more content not included)... [facility] 09-21-2021 History of Present illness Narrative [facility] Evaluation Date: 09/21/2021 Patient: Jia Whitten : 1975 CSN #: [id number] Referring Physician: Carolyn Reed APRN * Medical Diagnosis: Dizziness, R42 Treatment Diagnosis: R posterior canal BPPV Onset Date: 11/06/17 PT Insurance Information: [employer] Total # of Visits Approved: 6 Total # of Visits to Date: 1 No Show: 0 Canceled Appointment: 0 Subjective Subjective: Patient reports dizziness off and on since 2018 but it's flared up right now, better since being on antivert. She's never had PT for vertigo before. She is having nausea and vomiting with this as well on Saturday. Feels like her eyes are spinning. Stated the doctor did Blairs Hallpike the other day and told her [...] Does walking down the aisle of a [facility] increase your problem?: SomeTimes Because of your problem, Do you have difficulty getting into or out of bed?: SomeTimes Does your problem significantly restrict your participation in social activities such as going out to dinner, going to movies, dancing, or to parties?: SomeTimes Because of your problem, do you have difficulty reading?: SomeTimes Does performing more ambitious activities like sports, dancing, upholstery auto trimmer such as sweeping of putting dishes away [...] noted and no hx of headaches.(-) B Noah hallpike (no dizziness or nystagmus [...] of dizziness symptoms to return to PLOF. 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 snf goal 2: Patient to test (-) for BPPV bilaterally and have no dizziness to improve QOL and return to PLOF. Minutes Tracking: Time In: 919 Time Out: 949 Minutes: 30 Timed Code Treatment Minutes: 29 Minutes Vahe Jung PT, DPT 09/21/2021 documented [facility] [employer] Work Phone: Evaluation + Plan note Future Appointments Appointment Date:10/12/2024 07:40:00 AM Scheduled Provider:KYARA MORAN CNP Location:[facility] Appointment Type: Open Diagnostic Tests PendingUrine Culture 09/16/24 [facility] Evaluation note Diagnosis Abnormality of left breast on screening mammogram documented in this encounter [facility] Phone: [email or web address] note* Diagnosis Abnormality of left breast on screening mammogram documented in this encounter [facility] Phone: [email or web address] note* Diagnosis High risk medication use Encounter for long-term (current) use of other medications Elevated liver enzymes Nonspecific elevation of levels of transaminase or lactic acid dehydrogenase (LDH) documented in this encounter [facility] Phone: evalzifeoc note* Diagnosis Atypical mole Benign neoplasm of skin, site unspecified documented in this encounter [employer] Phone: [email or web address] note* Diagnosis Pain in female pelvis Unspecified symptom associated with female genital organs documented in this encounter [employer] Phone: [email or web address] note* Diagnosis Screening for osteoporosis Special screening for osteoporosis Premature surgical menopause Postablative ovarian failure documented in this encounter [employer] Phone: [email or web address] note* Diagnosis Breast cancer screening by mammogram documented in this encounter [employer] Phone: [email or web address] noteNo Information[employer] Other Evaluation note* Diagnosis Onset Date Resolution Status Lumbar sprain acute [facility] Work Phone: History general Narrative - Reported* Type Description Date Medical History appendectomy Medical History gall bladder disease Medical History obesity Surgical History GALLBLADDER REMOVED 99 Surgical History HYSTERECTOMY-PARTIAL 04 Surgical History APPENDIX REMOVED 01 Surgical History tonsillectomy Surgical History Foot Surgery Hospitalization History see above [facility] Other Hospital course Narrative No data available for this section [facility] Hospital Discharge instructionsAmbulatory Orders* Referral to Pain Management Location: None [facility] Work Phone: Hospital Discharge instructions No data available for this section [facility] Progress note No data available for this section [facility] Summary Purpose Family History No Family History Records Found Relationship Condition Age at Onset Recorded Date/T april family member Family history of other condition Unknow n Advance Directives No Advanced Directives Records FoundDocuments on File Type Date Recorded Patient Coremaker Expl anation Advance Directives and Living Will Power of Shredding Floor Equipment Operator Documents on File Type Date Recorded Patient Coremaker Expl anation ACP-Advance Directive ACP-Power of Shredding Floor Equipment Operator Documents on File Type Date Recorded Patient Coremaker Expl anation ACP-Advance Directive ACP-Power of Shredding Floor Equipment Operator Advance Directive Response Recorded Date/ Time Advance Directives No April 2:17pm Assessments Diagnosis Women's annual routine gynecological examination Diagnosis Obesity (BMI 35.0-39.9 without comorbidity) Obesity, unspecified Chronic left lower quadrant pain Abdominal pain, left lower quadrant Screening cholesterol level Screening for lipoid disorders Diagnosis Sciatica of right side Sciatica Diagnosis Wellness examination Discharge Instructions * Attachments The following attachments cannot be sent through Care Everywhere. * Sciatica (Spanish) documented in this encounter Reason for Referral Status Reason Specialty Diagnoses / Procedures Referred By Contact Referred To Contact Pending Review Radiology Diagnoses Abnormality of left breast on screening mammogram Procedures US BREASt COMPLETE LEFT Zeeshan Shaw MD [address] [place] [address] [facility] [address] [place], [place] [id number] Status Reason Specialty Diagnoses / Procedures Referred By Contact Referred To Contact Pending Review Radiology Diagnoses Abnormality of left breast on screening mammogram Procedures MANISH KRYSTIN DIGITAL DIAGNOSTIC UNILATERAL LEFT Zeeshan Shaw MD [address] [place] [address] [facility] [place] [id number] Specialty Diagnoses / Procedures Referred By Stefani menon Referred To Contact Radiology Diagnoses Screening for osteoporosis Premature surgical menopause Procedures DEXA BONE DENSITY AXIAL SKELETON Sharron Alcantara, ENTRY CLERK - CONCEPT ARTIST [id number], [address] [address] Referral ID Status Reason Start Date Expiration Date V isits Requested Visits Authorized [id number] Pending Review 04/13/2022 04/13/2023 1 1 Specialty Diagnoses / Procedures Referred By Contac t Referred To Contact Radiology Diagnoses Breast cancer screening by mammogram Procedures MANISH KRYSTIN DIGITAL SCREEN BILATERAL Sharron Alcantara, ENTRY CLERK - CONCEPT ARTIST [address], [address] [address] Referral ID Status Reason Start Date Expiration Date Visits Re quested Visits Authorized [id number] Closed 05/25/2022 05/25/2023 1 1 Chief Complaint and Reason for Visit Chief Complaint Lumbar Fracture- c [facility] 6 week f/u x-ray results Reason for Visit Lumbar sprain Additional Source Comments INFORMATION SOURCE (unrecogn ized section and content) DATE CREATED AUTHOR 08/15/2018 [facility] DATE CREATED AUTHOR AUTHOR'S ORGANIZ ATION 04/16/2020 [facility] DATE CREATED AUTHOR AUTHOR'S ORGANIZ ATION 12/10/2022 [facility] DATE CREATED AUTHOR AUTHOR'S ORGANIZ ATION 09/26/2024 [facility] DATE CREATED AUTHOR AUTHOR'S ORGANIZ ATION 10/14/2024 [facility] DATE CREATED AUTHOR AUTHOR'S ORGANIZ ATION 12/07/2024 [facility] Reason for Visit (unrecogniz ed section and content) Reason Comments Back Pain FROI-lower back pain onset while at work- has had bladder incontinence on Saturday- seen at occupational health and recommended to come to ED for MRI Status Reason Specialty Diagnoses / Procedures Referred By Contact Referred To Contact Pending Review Radiology Diagnoses Abnormality of left breast on screening mammogram Procedures US BREASt COMPLETE LEFT Zeeshan Shaw MD [address] [facility] [address] [place] [address] [facility] [address] [place] [address] Status Reason Specialty Diagnoses / Procedures Referred By Contact Referred To Contact Pending Review Radiology Diagnoses Abnormality of left breast on screening mammogram Procedures MANISH KRYSTIN DIGITAL DIAGNOSTIC UNILATERAL LEFT Zeeshan Shaw MD [address] [place] [address] [facility] [address] [place] [address] Specialty Diagnoses / Procedures Referred By Contac t Referred To Contact Radiology Diagnoses Pain in female pelvis Procedures US PELVIS COMPLETE NON-OB TRANSABDOMINAL AND TRANSVAGINAL US PELVIS COMPLETE Sharron Alcantara APRN - CONCEPT ARTIST [id number] , [place] [address] Referral ID Status Reason Start Date Expiration Date Visits Re quested Visits Authorized [id number] Open 04/13/2022 04/13/2023 1 1 Specialty Diagnoses / Procedures Referred By Contac t Referred To Contact Radiology Diagnoses Screening for osteoporosis Premature surgical menopause Procedures DEXA BONE DENSITY AXIAL SKELETON Sharron Alcantara APRN - CNP [id number] , [place] [address] Referral ID Status Reason Start Date Expiration Date V isits Requested Visits Authorized [id number] Pending Review 04/13/2022 04/13/2023 1 1 Specialty Diagnoses / Procedures Referred By Contac t Referred To Contact Radiology Diagnoses Breast cancer screening by mammogram Procedures MANISH KRYSTIN DIGITAL SCREEN BILATERAL Sharron Alcantara APRN - CNP [id number] [facility], [place] [address] Referral ID Status Reason Start Date Expiration Date Visits Re quested Visits Authorized [id number] Closed 05/25/2022 05/25/2023 1 1 Care Teams (unrecognized sec tion and content) Patient Assessment Coordinator Relationship Specialty Start Date End Date Carolyn Reed, ENTRY CLERK - CONCEPT ARTIST [address] [place] [address] PCP - General Family Nurse Practitioner 01/13/20 Patient Assessment Coordinator Relationship Specialty Start Date End Date Carolyn Reed, ENTRY CLERK - CONCEPT ARTIST [address] [facility] [address] [facility] [address] PCP - General Family Nurse Practitioner 01/13/20 Patient Assessment Coordinator Relationship Specialty Start Date End Date Carolyn Reed, ENTRY CLERK - CONCEPT ARTIST [address] [place] [address] PCP - General Family Nurse Practitioner 04/03/22 Patient Assessment Coordinator Relationship Specialty Start Date End Date Carolyn Reed, ENTRY CLERK - CONCEPT ARTIST [address] [place] [address] PCP - General Family Nurse Practitioner 04/03/22 Team Status: Active Member Role Status Tico Dorman MD Primary Care Provider Active Team Status: Inactive Member Role Status DERECK Valdez Attending Provider Active Start: April 04, 2023 End: April 04, 2023 Team Status: Inactive Member Role Status Tico Dorman MD Primary Care Provider Active Start: May 16, 2023 End: May 16, 2023 DERECK Lindsey Attending Provider Active Start: May 16, 2023 End: May 16, 2023 Goals (unrecognized section and content) Goals may be documented in a n alternate section FOR RECORDS PERTAINING TO PATIENTS WHO ARE [...] BE BASED ON THE PRIMARY CLINICAL RECORDS. [employer] provides no warranty or guarantee of the accuracy or completeness of information in this document.
== END 2024-12-07 13:17 | disposition home or self-care (01) ==
LOC: RAD 13:18
PROVIDERS: Visit Provider Nurse Practitioner
DX: M53.3 Sacrococcygeal disorders, not elsewhere classified (principal)
CPT/HCPCS: 72220

== ENCOUNTER 2025-01-04 08:18 | Outpatient (OUT) | payer OTHER, SELFPAY ==
--- OUTSIDE RECORDS SUMMARY | 2025-01-04 08:20 | XMS_ITS | Encounter Summary ---
Author Organization [facility] Address [address], [address] [place] [address] Care Team Providers Care Heel Blacker Name Role Phone Carolyn Reed HAND CROWN POUNCER - BUGGYMAN Primary Care Provide r Reason for Visit * Reason Comments Medication Refill Encounter Details Date Type Department Care Team (Late st Contact Info) Description 10/26/2020 Refill [facility] MEDICINE Part of [address] [place] [phone] Carolyn Reed, HAND CROWN POUNCER - BUGGYMAN [address] [place] [address] [address] [place] [address] Medication Refill Social History Tobacco [...] on filedocumented in this encounter Care Teams Heel Blacker Relationship Specialty Start Date End Date Carolyn Reed, HAND CROWN POUNCER - BUGGYMAN [address] [place] [address] [address] PCP - General Family Nurse Practitioner 04/03/22 documented as of this encounter
--- OUTSIDE RECORDS SUMMARY | 2025-01-04 08:20 | XMS_ITS | Encounter Summary ---
Author Organization [facility] Address [address], [address] [place] [address] Care Team Providers Care Merchandising Manager Name Role Phone Carolyn Reed ORTHOTIC FINISH GRINDING TECHNICIAN - LIVESTOCK RANCH HAND Primary Care Provide r Reason for Visit * Reason Comments Medication Refill Encounter Details Date Type Department Care Team (Late st Contact Info) Description 04/02/2020 Refill [facility] MEDICINE Part of [address] [place] [phone] Carolyn Reed, ORTHOTIC FINISH GRINDING TECHNICIAN - LIVESTOCK RANCH HAND [address] [place] [address] [address] [place] [address] Medication Refill Social History Tobacco [...] on filedocumented in this encounter Care Teams Merchandising Manager Relationship Specialty Start Date End Date Carolyn Reed, ORTHOTIC FINISH GRINDING TECHNICIAN - LIVESTOCK RANCH HAND [address] [place] [address] [address] PCP - General Family Nurse Practitioner 04/03/22 documented as of this encounter
--- OUTSIDE RECORDS SUMMARY | 2025-01-04 08:21 | XMS_ITS | Clinical Summary ---
Author Organization [facility] Address [address], [address] [place] [address] Care Team Providers Care Feed In Worker Name Role Phone Carolyn Reed APRN - TRAVELING PASSENGER AGENT Primary Care Provide r Allergies No known [...] PM EST Breast cancer screening by mammogram HOSPITALITY MANAGER CYTOLOGY Routine 02/25/2020 9:40 AM EST from Last 3 Months or Most Recently Relevant to Health Maintenance Results * Hepatitis C Antibody (12/06/2022 7:45 AM EDT) Hepatitis C Ab NONREACTIVE NONREACTIVE 12/07/19 7:45 AM EDT [facility] Comment: The hepatitis C procedure used in [...] EDT 12/06/2022 7:46 AM EDT Carolyn Reed INCENDIARY POWDER MIXER - TRAVELING PASSENGER AGENT IMMUNOLOGY ORDERABLES Final Result Performing Organization Address City/[facility]/ZIP Co de Phone Number [facility] [address] [place] [address], [facility] [phone] [facility] [address] [place] [address], [facility] [phone] * HIV Screen (12/06/2022 7:45 AM EDT) Pathologist [facility] HIV Ag/Ab NONREACTIVE NONREACTIVE 12/06/2022 7:45 AM EDT [facility] Comment: No laboratory evidence of HIV infection. If acute HIV infection is suspected, consider testing for HIV-1 RNA. BLOOD SPECIMEN / Unknown 12/06/2022 7:45 AM EDT 12/06/2022 7:46 AM EDT Carolyn Reed INCENDIARY POWDER MIXER - [facility] IMMUNOLOGY ORDERABLES Final Result Performing Organization Address [facility] Co de Phone Number [facility] [address] [place] [address], [facility] [phone] [facility] [address] [place] [address], [facility] [phone] * Hemoglobin A1C (12/06/2022 7:45 AM EDT) Hemoglobin A1C 5.5 4.0 - 6.0 % 12/06/2022 7:45 AM EDT [facility] Estimated Avg Glucose 111 mg/dL 12/06/2022 7:45 AM EDT [facility] Comment: The ADA and AACC recommend providing the estimated average glucose result to permit better patient understanding of their HBA1c result. BLOOD SPECIMEN / Unknown 12/06/2022 7:45 AM EDT 12/06/2022 7:46 AM EDT Carolyn Reed INCENDIARY POWDER MIXER - TRAVELING PASSENGER AGENT CHEMISTRY ORDERABLES Final Result [facility] [address] [place] [address], [facility] [phone] [facility] [address] [place] [address], [facility] [phone] * (ABNORMAL) Lipid Panel (12/06/2022 7:45 AM EDT) Cholesterol 196 <200 mg/dL 12/06/2022 7:45 AM EDT [facility] Comment: Cholesterol Guidelines: <200 Desirable 200-240 Borderline >240 Undesirable HDL 46 >40 mg/dL 12/06/2022 7:45 AM EDT [facility] Comment: HDL Guidelines: <40 Undesirable 40-59 Borderline >59 Desirable LDL Cholesterol 111 0 - 130 mg/dL 12/06/2022 7:45 AM EDT [facility] Comment: LDL Guidelines: <100 Desirable 100-129 Near to/above Desirable 130-159 Borderline >159 Undesirable Direct (measured) LDL and calculated LDL are not interchangeable tests. Chol/HDL Ratio 4.3 <5 12/06/2022 7:45 AM EDT [facility] Comment: Triglycerides 197(H) <150 mg/dL 12/06/2022 7:45 AM EDT [facility] Comment: Triglyceride Guidelines: <150 Desirable 150-199 Borderline 200-499 High >499 Very high Based on AHA Guidelines for fasting triglyceride, December 2011. BLOOD SPECIMEN / Unknown 12/06/2022 7:45 AM EDT 12/06/2022 7:46 AM EDT Carolyn Reed INCENDIARY POWDER MIXER - TRAVELING PASSENGER AGENT CHEMISTRY ORDERABLES Final Result [facility] [address] [place] [address], [facility] [phone] [employer] [address] [place] [address], [facility] [phone] * MANISH KRYSTIN DIGITAL SCREEN BILATERAL (05/25/2022 1:03 PM EST) Anatomical Region Laterality Modality Breast Bilateral Mammography 05/25/2022 1:09 PM EST Impressions 05/25/2022 1:49 PM EST No mammographic evidence of malignancy BIRADS: BIRADS - CATEGORY 1 Negative. Normal interval follow-up is recommended in 12 months. OVERALL ASSESSMENT - NEGATIVE A letter of notification will be sent to the patient regarding the results. The [employer] recommends annual mammograms for [...] of microcalcification in either breast. Sharron Alcantara INCENDIARY POWDER MIXER - TRAVELING PASSENGER AGENT IM MAMMOGRAPHY ORDERABL ES Final Result * HOSPITALITY MANAGER Cytology (02/25/2020 9:40 AM EST) Cytology Report INTERPRETATION Vaginal material, (ThinPrep vial, Imaging-assisted review): Specimen Adequacy: Satisfactory for evaluation. Descriptive Diagnosis: Negative for intraepithelial lesion or malignancy. Sheet Metal Worker Apprentice: SALINAS Domingo(ASCP) Electronically Signed Out christ/03/07/2020 Source: 1: Vaginal material, (ThinPrep vial, Imaging-assisted review) Clinical History Hysterectomy Z01.419 Routine control technician exam without abnormal findings High risk HPV DNA testing is requested if the diagnosis is abnormal GYNECOLOGIC CYTOLOGY REPORT Patient Name: OMAR HOANG [facility] Rec: [id number] Path Number: [id number] [facility] ANATOMIC PATHOLOGY [address] [place] [address]. [place], [place] [phone] [employer] 02/25/2020 9:40 AM EST 02/26/2020 9:40 AM EST Zeeshan Shaw MD PATHOLOGY/CYTOLOGY ORDERABLES Final Result [facility] [address] [place] [address], [facility] [phone] [facility] [employer] [address] [place] [address], [facility] [phone] from Last 3 Months or Most Recently Relevant to Health Maintenance Care Teams Feed In Worker Relationship Specialty Start Date End Date Carolyn Reed, INCENDIARY POWDER MIXER - TRAVELING PASSENGER AGENT [address] [place] [address] Dr MAYO [address] [place] [address] PCP - General Family Nurse Practitioner 04/03/22
--- NOTE | 2025-01-04 08:45 | MM_ITS ---
Patient Name: OMAR HOANG MR#: [id number] : 1975 Exam Date: 01/04/2025 Ordering Doctor: KYARA MORAN RADIOLOGY REPORT PROCEDURE: MM TOMOSYNTHESIS SCREENING BI COMPARISON: MM TOMOSYNTHESIS SCREENING BI, 05/25/2022. MM TOMOSYNTHESIS DIAGNOSTIC LT, 07/15/2020. MM TOMOSYNTHESIS SCREENING BI, 06/15/2020. MAMMO SCREEN DIG STEPHENIE, 09/05/2010. INDICATIONS: Screening Calculator Name NCI Breast Cancer Risk Assessment Tool 5 Year Breast Cancer Risk 0.70% Lifetime Breast Cancer Risk 6.50% Personal Breast Cancer No Personal Ovarian Cancer No Treatments None Family Cancers Aunt-paternal with breast cancer at age 35; Aunt-paternal with breast cancer at age 45; Sister with brain cancer at age 38; Father with colon cancer at age 68; Grandmother-paternal with kidney cancer at age ~60. LOCATION: [facility] BREAST COMPOSITION: There are scattered areas of fibroglandular density. FINDINGS: RIGHT BREAST: No significant suspicious finding. Benign-appearing calcifications are present. Similar focal asymmetries are noted. LEFT BREAST: No significant suspicious finding. Similar focal asymmetries are noted. There is a benign-appearing lymph node along the left chest wall. DIAGNOSTIC CATEGORY 2--BENIGN FINDING. NO CHANGE FROM COMPARISON. RECOMMENDATIONS: ROUTINE MAMMOGRAM AND CLINICAL EVALUATION IN 12 MONTHS. Dictated by: Henry Ballesteros MD on 01/04/2025 at 09:56 Approved by: Henry Ballesteros MD on 01/04/2025 at 09:59
== END 2025-01-04 08:19 | disposition home or self-care (01) ==
LOC: MAMMO 08:18
PROVIDERS: PCP Nurse Practitioner Family; Visit Provider Nurse Practitioner Family
DX: Z12.31 Encounter for screening mammogram for malignant neoplasm of breast (principal); Z80.3 Family history of malignant neoplasm of breast; Z80.8 Family history of malignant neoplasm of other organs or systems; Z80.51 Family history of malignant neoplasm of kidney
CPT/HCPCS: 77063; 77067